=== PATIENT | female | born 1945 | race Caucasian/White ===

== ENCOUNTER 2017-01-16 09:49 | Observation (INO) | payer MEDICARE, MEDICAID ==
[2017-01-16] MEDS ORDERED: Acetaminophen TAB* 325 MG PO PRN (10:04)
[2017-01-16] MEDS ORDERED: Prochlorperazine TAB* 10 MG PO PRN (10:04)
[2017-01-16] MEDS ORDERED: Ondansetron ODT TAB* 4 MG SL PRN (10:04)
[2017-01-16] MEDS ORDERED: NS 0.9% 1000 ML* 1,000 ML IV SCH (10:15)
[2017-01-16] MEDS: Ciprofloxacin 400MG IVPREMIX(* 400 MG/200 ML BAG IVPB SCH ×2 (12:03→22:51)
[2017-01-16] MEDS ORDERED: Iohexol 180 (CONTRAST) 10 ML SDV IV ONE (16:40)
[2017-01-16] MEDS ORDERED: cefTRIAXone(*) 2 GM ADDV.VIAL IVPB ONE (17:35)
[2017-01-16] MEDS ORDERED: diPHENhydraMINE IV* 50 MG/ML 1 ml VIAL (BENADRYL) IV PRN (17:39)
[2017-01-16] MEDS ORDERED: Acetaminophen TAB* 325 MG ONE (18:24)
[2017-01-16] MEDS: fentaNYL* 50 MCG/ML 2 ML VIAL (100 MCG VIAL) IV PRN ×2 (18:27→18:33)
[2017-01-16] MEDS ORDERED: fentaNYL* 50 MCG/ML 2 ML VIAL (100 MCG VIAL) ONE (18:27)
[2017-01-16] MEDS ORDERED: DiMENhydriNATE IV* 50 MG/ML VIAL ONE (18:31)
--- NOTE | 2017-01-16 18:32 | RAD ---
INDICATION: Bilateral stent placement. COMPARISON: Comparison is made with a prior CT of the abdomen and pelvis from January 14, 2017. TECHNIQUE: 23 seconds of intermittent fluoroscopic guidance were provided and 10 spot films of the abdomen obtained. FINDINGS: There is opacification of both proximal collecting systems which appear dilated consistent with bilateral hydronephrosis. Subsequently there is placement of bilateral double-J stent catheters which demonstrate normal course. IMPRESSION: INTRAOPERATIVE CONTROL FILMS. CPT II Codes: 6045F
[2017-01-16] MEDS ORDERED: DiMENhydriNATE IV* 50 MG/ML VIAL IV PUSH PRN (18:33)
[2017-01-16] MEDS: NS 0.9% 1000 ML* 1,000 ML IV SCH (19:50)
[2017-01-16] MEDS: OLANzapine TAB* 10 MG PO SCH (20:46)
[2017-01-16] MEDS ORDERED: oxyCODONE/Acetamin 5/325 MG* TAB PO PRN ×2 (23:26→23:27)
[2017-01-17] MEDS: NS 0.9% 1000 ML* 1,000 ML IV SCH ×2 (01:16→07:55)
[2017-01-17] MEDS ORDERED: Levothyroxine TAB* 125 MCG TAB PO SCH (06:00)
[2017-01-17] MEDS ORDERED: Omeprazole CAP* 20 MG PO SCH (07:30)
[2017-01-17 07:32] VITALS: BP 121/62
[2017-01-17 08:41] LABS: Hematocrit 32 % (35-47); Hemoglobin 10.4 g/dl (12.0-16.0); Mean Corpuscular HGB Conc 33 g/dl (31-36); Mean Corpuscular Hemoglobin 29 pg (27-31); Mean Corpuscular Volume 87 fL (80-97); Mean Platelet Volume 7 um3 (7.4-10.4); Red Blood Count 3.62 10^6/ul (4.0-5.4); Red Cell Distribution Width 13 % (10.5-15); White Blood Count 13.6 10^3/ul (3.5-10.8)
[2017-01-17] MEDS: OLANzapine TAB* 10 MG PO SCH (08:52)
[2017-01-17 08:54] LABS: BUN/Creatinine Ratio 13.8 (8-20); Calcium 7.9 mg/dL (8.6-10.3); EGFR Non-African American 64.6 (>60); Globulin 3.1 g/dL (2-4); Potassium 3.5 mmol/L (3.5-5.0); Total Bilirubin 0.4 mg/dL (0.2-1.0); Total Protein 6.1 g/dL (6.4-8.9)
[2017-01-17] MEDS ORDERED: ARIPiprazole TAB* 15 MG PO SCH (09:00)
--- NOTE | 2017-01-17 09:08 | DS ---
- Discharge Summary ADMIT DATE: 01/16/2017 DISCHARGE DATE: 01/17/2017 DISCHARGE DIAGNOSIS: 1. pyelonephritis 2. bilateral hydronephrosis 3. ventral hernia DISCHARGE MEDICATIONS: Home Medications Medication Instructions Recorded Confirmed Type Meclizine TAB* [Antivert 12.5 TAB*] 12.5 mg PO ONCE PRN 07/28/13 01/16/17 History Ondansetron ODT TAB* [Zofran 4 MG 4 mg SL Q6H PRN 03/24/14 01/16/17 History Odt TAB*] OLANzapine TAB* [Zyprexa 10 MG 10 mg PO BID 11/27/16 01/16/17 History TAB*] Prochlorperazine TAB* [Compazine 10 mg PO Q6H PRN 11/27/16 01/16/17 History Tab*] ARIPiprazole TAB* [Abilify 15 MG 15 mg PO DAILY 01/13/17 01/16/17 History TAB*] Acetaminophen TAB* [Tylenol TAB*] 650 mg PO Q6H PRN 01/13/17 01/16/17 History Levothyroxine TAB* [Synthroid 125 125 mcg PO DAILY 01/13/17 01/16/17 History MCG TAB*] Omeprazole CAP* [Prilosec CAP* 20 20 mg PO DAILY 01/13/17 01/16/17 History MG] Ciprofloxacin HCl [Cipro 500 MG 500 mg PO BID #14 tab 01/17/17 Rx TAB] DISCHARGE FOLLOW UP: 1. Dr. Felton 1-[address] Castellon 01/23 HOSPITAL COURSE: brief obv discharge summary. Allegra was admitted and had ureteral stents placed. She was observed over night on IV cipro and feels quite good this morning. She is up eating breakfast and denies abdominal pain. She will be discharged on cipro x 7 days for complicated pyelonephritis related to a sen sensitive e. coli. She will follow up with Dr. Felton and see Dr. Castellon in consultation for repair of this large hernia. She has no active evidence of cancer on her surveillance scans. >30 mins spent, >50% in face to face consultation
[2017-01-17] MEDS: Ciprofloxacin 400MG IVPREMIX(* 400 MG/200 ML BAG IVPB SCH (10:17)
--- NOTE | 2017-01-19 04:46 | OP ---
CC: Dr. Vikram Dumont; Edna Bowen NP; Dr. Dale * DATE OF OPERATION: 01/16/17 - ROOM #[id number] DATE OF : 49 SURGEON: Ramon Felton MD ANESTHESIOLOGIST: Eleazar Campo MD ANESTHESIA: Spinal. PRE-OP DIAGNOSES: 1. Bilateral hydronephrosis. 2. Rectal carcinoma. POST-OP DIAGNOSES: 1. Bilateral hydronephrosis. 2. Rectal carcinoma. OPERATIVE PROCEDURE: Cystoscopy, bilateral retrograde pyelograms, bilateral ureteral dilatation, and bilateral ureteral stent insertion. INDICATIONS: Kirstin Mcrae is a 71-year-old lady with rectal carcinoma. She was evaluated recently and was noted to have bilateral hydronephrosis. The etiology is unclear. COMPLICATIONS: None. POSTOPERATIVE CONDITION: Stable. STENT USED: 8.5-Cameroonian 28-cm silicone stents, right and left ureter. OPERATIVE FINDINGS: 1. Changes in bladder consistent with cystitis. 2. Right hydronephrosis with dilated tortuosity, proximal right ureter. 3. Mild left hydronephrosis. DESCRIPTION OF PROCEDURE: After induction of spinal anesthesia, patient was placed in dorsal lithotomy position. Sequential compression devices were in place and functioning. Initial cystoscopy revealed few hyperemic areas scattered throughout the bladder consistent with cystitis. The right orifice was identified. Right retrograde pyelogram revealed moderate right hydronephrosis with a dilated tortuous right proximal ureter. There was a tapering of the ureteral dilatation in the pelvis about 6 to 7 cm above the bladder. I suspect this is extrinsic obstruction and could possibly be related to scarring as a result of radiation therapy. The ureter was carefully dilated initially with a 4-Cameroonian open-ended catheter, next with an 8-Cameroonian, and once this was done, an 8.5-Cameroonian 28-cm silicone stent was positioned with good proximal and distal positioning observed. Attention was directed to the left side. On the left side, obstruction was less severe and the hydronephrosis was mild with not as much dilatation of the ureter noted. Once again, the ureter was carefully dilated to 8-Cameroonian and then 8.5-Cameroonian 28-cm silicone stent was placed. A 16-Cameroonian Abbott was placed for temporary bladder drainage. The patient tolerated the procedure satisfactorily and was transferred back to the recovery area in stable condition. [id number]/[facility] #: [id number] [facility]
== END 2017-01-17 10:25 | disposition home or self-care (01) ==
LOC: INTOOBSV 10:39 → SSU 10:39
PROVIDERS: ADMIT Internal Medicine Hematology & Oncology; ATTEND Internal Medicine Hematology & Oncology
DX: N12 Tubulo-interstitial nephritis, not specified as acute or chronic (principal); N13.30 Unspecified hydronephrosis; E03.9 Hypothyroidism, unspecified; F20.9 Schizophrenia, unspecified; K43.9 Ventral hernia without obstruction or gangrene; Z85.048 Personal history of other malignant neoplasm of rectum, rectosigmoid junction, and anus
CPT/HCPCS: A9270-GY; C1876; G0378; G0463; G8427; J0330; J0696; J0744; J1240; J1580; J2250; J2400; J2405; J3010; Q0164; Q9967

== ENCOUNTER → 2017-04-01 07:16 | Day surgery (SDC) | payer MEDICARE, MEDICAID ==
--- NOTE | 2017-03-30 21:39 | HP ---
CC: Dr. Dale; Dr. Dumont * ADMITTING HISTORY AND PHYSICAL: DATE OF ADMISSION: 04/01/17 ADMITTING DIAGNOSES: 1. History of rectal carcinoma. 2. Bilateral hydronephrosis. PLANNED PROCEDURE: Bilateral retrograde, bilateral stent insertion. SURGEON: Dr. Felton. HISTORY OF PRESENT ILLNESS: Kirstin Mcrae is a 71-year-old lady with a history of rectal carcinoma. She had been seen a few months ago for bilateral hydronephrosis. On 01/16/17, she underwent bilateral stent insertion with subsequent resolution of the hydronephrosis. I then waited to see whether after couple of months she would be able to tolerate removal of the stent and initially one stent and then the second stent was removed over the course of the last two weeks. A followup ultrasound was then obtained, which however, revealed recurrence of the hydronephrosis after stent removal. PAST MEDICAL HISTORY: Significant for: 1. Rectal carcinoma. 2. Hypothyroidism. 3. 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 4. History of schizophrenia and depression. MEDICATIONS ON ADMISSION: 1. Aripiprazole 15 mg daily. 2. Compazine 10 mg 4 times a day p.r.n. 3. Levothyroxine 112 mcg daily. 4. Olanzapine 10 mg b.i.d. 5. Prilosec 20 mg daily. 6. Zofran p.r.n. ALLERGIES: No known drug allergies. PHYSICAL EXAMINATION GENERAL: Reveals a pleasant elderly lady. VITAL SIGNS: Blood pressure is 112/70, pulse 99 per minute, temperature 97.1. LUNGS: Clear bilaterally. CARDIOVASCULAR: Regular rate and rhythm; S1, S2. ABDOMEN: Soft with mild bilateral flank tenderness. IMPRESSION: A 71-year-old lady with history of rectal carcinoma, who has recurrence of bilateral hydronephrosis after removal of bilateral stents. PLAN: Cystoscopy, bilateral retrograde and bilateral stent insertion. [id number]/[facility] #: [id number] MTDD
[~2017-04-01 07:16] MED LIST: Buffered Lidocaine 0.9% SYRIN* 5 ML/SYR SYRINGE INTRADERM ONE; Buffered Lidocaine 0.9% SYRIN* 5 ML/SYR SYRINGE ONE; HYDROcodone/ACETAMIN 5-325 MG* 1 TAB PO PRN; Iohexol 180 (CONTRAST) 10 ML SDV IV ONE; Midazolam* 1 MG/ML 2 ML VIAL (2 MG) ONE; Ondansetron INJ* 2 MG/ML VIAL IV PRN; Propofol* 10 MG/ML 20 ML BTL IV PUSH ONE; cefTRIAXone(*) 2 GM ADDV.VIAL IVPB ONE; fentaNYL* 50 MCG/ML 2 ML VIAL (100 MCG VIAL) IV PRN; fentaNYL* 50 MCG/ML 2 ML VIAL (100 MCG VIAL) ONE; oxyCODONE TAB* 5 MG TAB PO PRN
--- NOTE | 2017-04-01 10:14 | RAD ---
Indication: Hydronephrosis. Fluoroscopic services provided for referring physician. 12 seconds of fluoroscopy time was used. There are 6 spot images which demonstrates bilateral hydronephrosis. There is placement of bilateral ureteral stents. IMPRESSION: Bilateral ureteral stents are noted. CPT II Codes: 6045F
[2017-04-01 11:02] VITALS: BP 107/61
--- NOTE | 2017-04-02 01:42 | OP ---
CC: Dr. Reji Dael; Dr. Vikram Dumont * DATE OF OPERATION: 04/01/17 - [facility] DATE OF : 49 SURGEON: Ramon Felton MD ANESTHESIOLOGIST: Dr. Avalos. ANESTHESIA: General. PRE-OP DIAGNOSIS: Bilateral hydronephrosis. POST-OP DIAGNOSIS: Bilateral hydronephrosis. OPERATIVE PROCEDURE: Cystoscopy, bilateral retrograde pyelogram, bilateral ureteral balloon dilatation, and bilateral stent insertion. COMPLICATIONS: None. STENT USED: An 8.5-Malagasy 26 cm silicone stent, right and left ureter. POSTOPERATIVE CONDITION: Stable. INDICATION: Kirstin Mcrae is a 71-year-old lady with rectal carcinoma. She had previously undergone bilateral stent insertion with resolution of the hydronephrosis. However, she developed recurrent hydronephrosis after the stents were removed and is now being brought in for bilateral stent insertion. DESCRIPTION OF PROCEDURE: After induction of general anesthesia, the patient was placed in dorsal lithotomy position. Sequential compression devices were in place and functioning. Initial cystoscopy revealed a normal-appearing bladder. Guidewire was introduced into the right ureter. Retrograde pyelogram revealed right hydronephrosis and a dilated proximal right ureter with tapering noted at the level of the mid to distal right ureter. Balloon dilatation of the mid to distal right ureter was successfully carried out under fluoroscopy and an 8.5-Malagasy 26 cm silicone stent was introduced without difficulty. The left retrograde pyelogram and balloon dilatation was carried out on the left side also and an 8.5-Malagasy 26 cm silicone stent was successfully placed on the left side also. An 18-Malagasy Abbott was placed for temporary bladder drainage. The patient tolerated the procedure satisfactorily and was transferred back to the recovery area in stable condition. [id number]/[facility] #: [id number] MTDD
== END | disposition home or self-care (01) ==
LOC: OR 07:16
PROVIDERS: ATTEND Urology
DX: N13.1 Hydronephrosis with ureteral stricture, not elsewhere classified (principal); C20 Malignant neoplasm of rectum; E03.9 Hypothyroidism, unspecified; Z85.3 Personal history of malignant neoplasm of breast; F20.9 Schizophrenia, unspecified; F32.9 Major depressive disorder, single episode, unspecified
CPT/HCPCS: 74420; C1876; J0696; J2250; J2704; J3010

== ENCOUNTER 2017-07-31 06:56 | Day surgery (SDC) | payer MEDICARE, MEDICAID ==
--- NOTE | 2017-07-29 11:45 | HP ---
CC: Dr. Vikram Dumont; Dr. Reji Dale * ADMITTING HISTORY AND PHYSICAL: DATE OF ADMISSION: 07/31/17 ADMITTING DIAGNOSES: 1. Bilateral hydronephrosis. 2. Recurrent urinary tract infections. PLANNED PROCEDURE: Bilateral retrograde, bilateral ureteral balloon dilatation , and bilateral stent change. SURGEON: Dr. Felton. HISTORY OF PRESENT ILLNESS: Kirstni Mcrae is a 72-year-old lady with a history of rectal carcinoma. She had originally undergone bilateral stent insertion in December of 2016 with resolution of the hydronephrosis. She then underwent stent removal but had to have the stent replaced because of the recurrence of hydronephrosis in March of 2017. She had recently been treated for urinary tract infection on 07/10/17 and when seen in followup on 02/04 appeared to have another urinary tract infection and has been started on antibiotic prior to be brought in for stent change. Also, her recent ultrasound had revealed progression of the left-sided hydronephrosis in spite of having a stent in place. PAST MEDICAL HISTORY: Significant for: 1. Rectal carcinoma (no definite recurrence as far as I can tell based on my review of the records). 2. History of ductal carcinoma in situ of the breast, treated with surgery and radiation therapy. 3. Hypothyroidism. 4. History of depression. 5. History of schizophrenia. MEDICATIONS ON ADMISSION: 1. Levothyroxine 112 mcg daily. 2. Prilosec 20 mg daily. 3. Olanzapine 10 mg twice a day. 4. Aripiprazole 15 mg daily. 5. Compazine p.r.n. ALLERGIES: No known drug allergies. REVIEW OF SYSTEMS: She is otherwise in good health. There is no history of diabetes mellitus or any other major systemic illness. PHYSICAL EXAMINATION GENERAL: Reveals a pleasant elderly lady. VITAL SIGNS: Blood pressure is 104/62, pulse rate 103 per minute and regular, oxygen saturation 99% on room air, temperature 97. LUNGS: Clear bilaterally. There is mild bilateral costovertebral angle tenderness, more on the left. CARDIOVASCULAR: Regular rate and rhythm. S1 and S2. LABORATORY DATA: A repeat urine culture is pending at the time of this dictation. IMPRESSION AND PLAN: Meanwhile, she has been started on Cipro 500 mg twice a day based on the last urine culture and the plan is for bilateral retrograde, possible bilateral balloon dilatation, and bilateral stent change. [id number]/[facility] #: [id number] [facility]
[~2017-07-31 06:56] MED LIST changes: -Buffered Lidocaine 0.9% SYRIN* 5 ML/SYR SYRINGE ONE; -HYDROcodone/ACETAMIN 5-325 MG* 1 TAB PO PRN; -Iohexol 180 (CONTRAST) 10 ML SDV IV ONE; -Midazolam* 1 MG/ML 2 ML VIAL (2 MG) ONE; -Ondansetron INJ* 2 MG/ML VIAL IV PRN; -Propofol* 10 MG/ML 20 ML BTL IV PUSH ONE; -cefTRIAXone(*) 2 GM ADDV.VIAL IVPB ONE; -fentaNYL* 50 MCG/ML 2 ML VIAL (100 MCG VIAL) IV PRN; -fentaNYL* 50 MCG/ML 2 ML VIAL (100 MCG VIAL) ONE; -oxyCODONE TAB* 5 MG TAB PO PRN
[2017-07-31] MEDS ORDERED: Gentamicin ADULT (*) 180 MG in NS 0.9% 100 ML* 100 ML IVPB ONE (07:00)
[2017-07-31] MEDS ORDERED: Levofloxacin 500 MG IVPREMIX(* 500 MG/100 ML BAG IVPB ONE (07:09)
[2017-07-31] MEDS ORDERED: Buffered Lidocaine 0.9% SYRIN* 5 ML/SYR SYRINGE ONE (07:09)
[2017-07-31] MEDS ORDERED: Propofol* 10 MG/ML 20 ML BTL IV PUSH ONE (08:56)
[2017-07-31] MEDS ORDERED: Midazolam* 1 MG/ML 2 ML VIAL (2 MG) ONE (08:56)
[2017-07-31] MEDS ORDERED: fentaNYL* 50 MCG/ML 2 ML VIAL (100 MCG VIAL) ONE (08:56)
[2017-07-31] MEDS ORDERED: Iohexol 180 (CONTRAST) 10 ML SDV IV ONE ×2 (09:20→09:28)
[2017-07-31] MEDS ORDERED: Ondansetron INJ* 2 MG/ML VIAL IV PRN (09:28)
[2017-07-31] MEDS ORDERED: fentaNYL* 50 MCG/ML 2 ML VIAL (100 MCG VIAL) IV PRN (09:28)
[2017-07-31] MEDS ORDERED: HYDROcodone/ACETAMIN 5-325 MG* 1 TAB PO PRN (09:28)
[2017-07-31] MEDS ORDERED: Naloxone* 0.4 MG/ML 1 ML VIAL IV PRN (09:28)
[2017-07-31] MEDS ORDERED: oxyCODONE/Acetamin 5/325 MG* TAB PO PRN (09:28)
--- NOTE | 2017-07-31 10:50 | RAD ---
CPT II Codes: G9500 Indication: Bilateral ureteral stent exchange. Fluoroscopic services provided for referring physician. 23 seconds of fluoroscopy time was used. 9 spot images demonstrates exchange of bilateral ureteral stents. IMPRESSION: Fluoroscopic services provided for referring physician for ureteral stent exchange.
--- NOTE | 2017-07-31 11:15 | OP ---
CC: Dr. Reji Dale; [facility] * DATE OF OPERATION: 07/31/17 - [facility] DATE OF : 49 SURGEON: Ramon Felton MD ANESTHESIOLOGIST: Dr. Avalos. ANESTHESIA: General. PRE-OP DIAGNOSIS: Bilateral hydronephrosis. POST-OP DIAGNOSIS: Bilateral hydronephrosis. OPERATIVE PROCEDURE: Cystoscopy, bilateral stent removal, bilateral retrograde pyelogram, bilateral ureteral balloon dilatation, and bilateral stent insertion. COMPLICATIONS: None. POSTOPERATIVE CONDITION: Stable. STENT USED: An 8.5-Tajik 22 cm silicone stent, right ureter and 8.5-Tajik 26 cm silicone stent, left ureter. INDICATIONS: Kirstin Mcrae is a 72-year-old lady with history of rectal carcinoma. She was noted to have bilateral hydronephrosis, which resolved with initial stent insertion, but then recurred after stent removal. She has also recently had recurrent urinary tract infections. DESCRIPTION OF PROCEDURE: After induction of general anesthesia, patient was placed in dorsal lithotomy position. Sequential compression devices were in place and functioning. Initial cystoscopy revealed a normal-appearing bladder, both of the previously placed stents were removed. Attention was directed to the right side. Retrograde pyelogram revealed a right kidney that was significantly lower in location, but normal with mild fullness of the collecting system. Balloon dilatation of the distal right ureter was carried out successfully under fluoroscopic monitoring and a new 8.5- Tajik 22 cm silicone stent was placed. Next, attention was directed to the left side. Once again, retrograde pyelogram was performed. There was more fullness of the left collecting system and once again balloon dilatation of the left distal ureter was successfully carried out with restriction noted at the junction of the mid to distal left ureter. A new 8.5-Tajik 26 cm silicone stent was placed on the left side. A Abbott catheter was placed for temporary bladder drainage. The patient tolerated the procedure satisfactorily and was transferred back to the recovery area in stable condition. [id number]/[facility] #: [id number] MTDD
[2017-07-31] MEDS ORDERED: Ondansetron INJ* 2 MG/ML VIAL ONE (11:33)
[2017-07-31 11:56] VITALS: BP 135/61
== END 2017-07-31 12:08 | disposition home or self-care (01) ==
LOC: OR 06:56
PROVIDERS: ATTEND Urology
DX: N13.1 Hydronephrosis with ureteral stricture, not elsewhere classified (principal); C20 Malignant neoplasm of rectum; Z87.440 Personal history of urinary (tract) infections; Z85.3 Personal history of malignant neoplasm of breast; E03.9 Hypothyroidism, unspecified; F32.9 Major depressive disorder, single episode, unspecified
CPT/HCPCS: 74420; C1876; C2617; J1580; J1956; J2250; J2405; J2704; J3010

== ENCOUNTER 2017-09-16 08:47 | Day surgery (SDC) | payer MEDICARE, MEDICAID ==
[2017-09-16] MEDS ORDERED: cefTRIAXone(*) 2 GM ADDV.VIAL IVPB ONE (08:49)
[2017-09-16] MEDS ORDERED: Propofol* 10 MG/ML 20 ML BTL IV PUSH ONE (11:33)
[2017-09-16] MEDS ORDERED: fentaNYL* 50 MCG/ML 2 ML VIAL (100 MCG VIAL) ONE (11:33)
[2017-09-16] MEDS ORDERED: DiMENhydriNATE IV* 50 MG/ML VIAL IV PUSH PRN (11:51)
[2017-09-16] MEDS ORDERED: Naloxone* 0.4 MG/ML 1 ML VIAL IV PRN (11:51)
[2017-09-16] MEDS ORDERED: fentaNYL* 50 MCG/ML 2 ML VIAL (100 MCG VIAL) IV PRN (11:51)
[2017-09-16] MEDS ORDERED: Ondansetron INJ* 2 MG/ML VIAL IV PRN (11:51)
[2017-09-16] MEDS ORDERED: Acetaminophen TAB* 325 MG PO PRN (11:51)
[2017-09-16] MEDS ORDERED: Iohexol 180 (CONTRAST) 10 ML SDV IV ONE (11:53)
--- NOTE | 2017-09-16 13:05 | RAD ---
INDICATION: Left ureteral balloon dilatation and stent replacement. COMPARISON: Comparison is made with prior renal ultrasound from September 02, 2017. TECHNIQUE: 12 seconds of intermittent fluoroscopic guidance were provided and 9 spot films of the abdomen were centered on the left side. FINDINGS: There is partial opacification of the left renal collecting system. There is balloon dilatation of the left ureter at several levels over a guidewire. Subsequently there is placement of a double-J stent catheter on the left side which demonstrates normal course. IMPRESSION: INTRAOPERATIVE CONTROL FILMS. CPT II Codes: G9500
[2017-09-16 13:33] VITALS: BP 147/78
--- NOTE | 2017-09-17 18:11 | OP ---
CC: Dr. Reji Dale; Dr. Arely Schofield; Dr. Ramon Felton OPERATIVE REPORT: DATE OF OPERATION: 09/16/17 DATE OF : 49 SURGEON: Ramon Felton MD ANESTHESIOLOGIST: Dr. Elias. ANESTHESIA: General. PRE-OP DIAGNOSIS: Left hydronephrosis. POST-OP DIAGNOSIS: Left hydronephrosis. OPERATIVE PROCEDURE: Cystoscopy, left stent removal, left retrograde pyelogram, left ureteral balloo n dilatation, and left stent insertion. COMPLICATIONS: None. STENT USED: 8.5-English 26-cm silicone stent, left ureter. INDICATIONS: Kirstin Mcrae is a 72-year-old lady with a history of rectal carcinoma. She had bee n evaluated for bilateral hydronephrosis and had undergone successful bilateral stent insertion. How ever, a followup ultrasound revealed persistent left hydronephrosis and she is now being brought in f or a repeat balloon dilatation and stent change. OPERATIVE FINDINGS: Left hydronephrosis likely secondary to stricture left mid to distal ureter. POSTOPERATIVE CONDITION: Stable. DESCRIPTION OF PROCEDURE: After induction of general anesthesia, the patient was placed in dorsal li thotomy position. Sequential compression devices were in place and functioning. Initial cystoscopy revealed both stents to be appropriately in the bladder with the distal coils noted in the bladder. The left stent was removed. Retrograde pyelogram revealed mild fullness of the left collecting syste m. I did not visualize any filling defects. There was a subtle area of narrowing at the junction of the mid to distal left ureter, which may represent stricture. Next, under fluoroscopic monitoring, balloon dilatation of the entire proximal mid and distal left ur eter was successfully carried out. Once this was completed, a new 8.5-English 26 cm silicone stent wa s introduced and positioned under fluoroscopy with good proximal and distal positioning obtained. Th e bladder was emptied. The patient tolerated the procedure satisfactorily and was transferred back t recovery area in stable condition. [id number]/[facility] #: [id number]
== END 2017-09-16 14:10 | disposition home or self-care (01) ==
LOC: OR 08:47
PROVIDERS: ATTEND Urology
DX: N13.1 Hydronephrosis with ureteral stricture, not elsewhere classified (principal); C20 Malignant neoplasm of rectum; Z85.3 Personal history of malignant neoplasm of breast; E03.9 Hypothyroidism, unspecified; F32.89 Other specified depressive episodes
CPT/HCPCS: 74420; C1876; J0696; J2704; J3010

== ENCOUNTER 2017-12-11 06:10 | Day surgery (SDC) | payer MEDICARE, MEDICAID ==
--- NOTE | 2017-12-07 20:03 | HP ---
CC: Dr. Dumont; Dr. Reji Dale * ADMITTING HISTORY AND PHYSICAL: DATE OF ADMISSION: 12/11/17 ADMITTING DIAGNOSES: 1. Bilateral hydronephrosis. 2. Urinary tract infection. PLANNED PROCEDURE: Cystoscopy, bilateral retrograde, bilateral stent change. SURGEON: Dr. Felton. HISTORY OF PRESENT ILLNESS: Kirstin Mcrae is a 72-year-old lady with a history of rectal carcinoma and bilateral hydronephrosis. She had undergone bilateral stent insertion with an 8.5-Sri Lankan 22-cm silicone stent in the right ureter and a 26-cm silicone stent in the left ureter. She has recently had recurrent or persistent urinary tract infections and is now being brought in for bilateral stent change while on oral antibiotics. PAST MEDICAL HISTORY: Significant for: 1. Rectal carcinoma. 2. Hypothyroidism. 3. Schizophrenia. 4. History of depression. 5. History of ductal carcinoma in situ of the breast. MEDICATIONS: On admission: 1. Prilosec 20 mg a day. 2. Aripiprazole 15 mg daily. 3. Olanzapine 10 mg twice a day. 4. Prilosec 20 mg daily. 5. Zofran 3 times a day p.r.n. ALLERGIES: No known drug allergies. REVIEW OF SYSTEMS: She is otherwise in good health. There is no history of any cardiovascular conditions or diabetes mellitus. PHYSICAL EXAMINATION GENERAL: Reveals a pleasant elderly lady. VITAL SIGNS: Blood pressure is 108/70, temperature 97.6, heart rate 93 per minute, oxygen saturation 99% on room air. LUNGS: Clear bilaterally. CARDIOVASCULAR: Regular rate and rhythm. S1, S2. ABDOMEN: Soft with mild bilateral flank tenderness. LABORATORY DATA: Her most recent urine culture had grown E. coli as well as enterococcus. IMPRESSION: A 72-year-old lady with bilateral ureteral stents and urinary tract infection, who is currently on antibiotics, and is being brought in for bilateral stent change while on antibiotics. [id number]/[facility] #: [id number] MTDD
[~2017-12-11 06:10] MED LIST changes: +Dexamethasone IV* 4 MG/ML 1 ML (4 MG) IV SLOW PU ONE; +Famotidine IV* 10 MG/ML 2 ML (20 mg) IV ONE
[2017-12-11] MEDS ORDERED: Famotidine IV* 10 MG/ML 2 ML (20 mg) ONE (06:12)
[2017-12-11] MEDS ORDERED: Dexamethasone IV* 4 MG/ML 1 ML (4 MG) ONE (06:12)
[2017-12-11] MEDS ORDERED: cefTRIAXone(*) 2 GM ADDV.VIAL IVPB ONE (06:25)
[2017-12-11] MEDS ORDERED: Gentamicin ADULT (*) 120 MG in NS 0.9% 100 ML* 100 ML IVPB ONE (07:00)
[2017-12-11] MEDS ORDERED: fentaNYL* 50 MCG/ML 2 ML VIAL (100 MCG VIAL) ONE (07:03)
[2017-12-11] MEDS ORDERED: Midazolam* 1 MG/ML 2 ML VIAL (2 MG) ONE (07:04)
[2017-12-11] MEDS ORDERED: DiMENhydriNATE IV* 50 MG/ML VIAL IV PUSH PRN (07:15)
[2017-12-11] MEDS ORDERED: HYDROcodone/ACETAMIN 5-325 MG* 1 TAB PO PRN (07:15)
[2017-12-11] MEDS ORDERED: Naloxone* 0.4 MG/ML 1 ML VIAL IV PRN (07:15)
[2017-12-11] MEDS ORDERED: oxyCODONE/Acetamin 5/325 MG* TAB PO PRN (07:15)
[2017-12-11] MEDS ORDERED: Acetaminophen TAB* 325 MG PO PRN (07:15)
[2017-12-11] MEDS ORDERED: oxyCODONE TAB* 5 MG TAB PO PRN (07:15)
[2017-12-11] MEDS ORDERED: Iohexol 180 (CONTRAST) 10 ML SDV IV ONE (07:21)
[2017-12-11] MEDS ORDERED: Propofol* 10 MG/ML 20 ML BTL IV PUSH ONE (07:33)
[2017-12-11] MEDS ORDERED: Lidocaine 2% PF * 5 ML VIAL ONE (07:34)
[2017-12-11] MEDS ORDERED: EPHEDrine (Pressors)* 50 MG/ML VIAL ONE (07:45)
[2017-12-11] MEDS ORDERED: Ondansetron INJ* 2 MG/ML VIAL ONE (07:54)
[2017-12-11] MEDS ORDERED: Furosemide IV* 10 MG/ML 2 ML VIAL (20 MG) ONE (08:15)
--- NOTE | 2017-12-11 08:42 | RAD ---
INDICATION: Bilateral stent exchange COMPARISON: None FINDINGS: 17 seconds of fluoroscopy were provided for the urology department. Fluoroscopic spot imaging of the abdomen were obtained for operative control. CPT II Codes: G9500 (fluoro time doc)
[2017-12-11 10:12] VITALS: BP 101/56
--- NOTE | 2017-12-11 11:53 | OP ---
CC: Dr. Dale; Dr. Schofield * DATE OF OPERATION: 12/11/17 - [facility] DATE OF : 49 SURGEON: Dr. Felton. ANESTHESIOLOGIST: Dr. Frances. ANESTHESIA: General. PRE-OP DIAGNOSIS: Bilateral hydronephrosis. POST-OP DIAGNOSIS: Bilateral hydronephrosis. OPERATIVE PROCEDURE: Cystoscopy, bilateral retrograde pyelograms, and bilateral ureteral stent change. COMPLICATIONS: None. STENT USED: 8.5-Greek 22-cm silicone stent, right ureter and 8.5-Greek 26-cm silicone stent, left ureter. INDICATION: Kirstin Mcrae is a 72-year-old lady who has had bilateral hydronephrosis. She has been managed with indwelling bilateral ureteral stents and is now being brought in for stent change. POSTOPERATIVE CONDITION: Stable. DESCRIPTION OF PROCEDURE: After induction of general anesthesia, the patient was placed in dorsal lithotomy position. Sequential compression devices were in place and functioning. Initial cystoscopy revealed mild chronic inflammatory changes and some telangiectasia in the floor of the bladder but an otherwise unremarkable appearing bladder. The stent was seen exiting from the right and left ureter and was removed intact without difficulty. Attention was directed to the right side. A retrograde pyelogram revealed fullness of the right collecting system and a new 8.5-Greek 22-cm silicone stent was introduced and positioned under fluoroscopy with good proximal and distal positioning obtained. Next, attention was directed to the left side. Similarly after doing an initial retrograde pyelogram, an 8.5-Greek 26-cm silicone stent was placed under fluoroscopic monitoring. The bladder was emptied. The patient tolerated the procedure satisfactorily and was transferred back to recovery area in stable condition. [id number]/[facility] #: [id number] [facility]
== END 2017-12-11 10:35 | disposition home or self-care (01) ==
LOC: OR 06:10
PROVIDERS: ATTEND Urology
DX: N13.1 Hydronephrosis with ureteral stricture, not elsewhere classified (principal); C20 Malignant neoplasm of rectum; E03.9 Hypothyroidism, unspecified; Z85.3 Personal history of malignant neoplasm of breast; F32.9 Major depressive disorder, single episode, unspecified; K21.9 Gastro-esophageal reflux disease without esophagitis
CPT/HCPCS: 74420; C1876; C2617; J0696; J1100; J1580; J1940; J2250; J2405; J2704; J3010

== ENCOUNTER → 2018-05-07 09:52 | Day surgery (SDC) | payer MEDICARE, MEDICAID ==
--- NOTE | 2018-05-05 18:57 | HP ---
CC: Dr. Vikram Dumont; Dr. Reji Dale * ADMITTING HISTORY AND PHYSICAL: DATE OF ADMISSION: 05/07/18 ADMITTING DIAGNOSIS: Bilateral hydronephrosis. PLANNED PROCEDURE: Cystoscopy, bilateral retrogrades, and bilateral ureteral stent insertion. SURGEON: Dr. Felton. HISTORY OF PRESENT ILLNESS: Kirstin Mcrae is a 73-year-old lady who had originally undergone bilateral stent insertion in December of 2016. She had last undergone stent change in November of 2017 and I decided to see if she would do okay without the stents and first the left and then the right stent were removed recently a week apart. An ultrasound revealed bilateral hydronephrosis and she is now being brought in for stent replacement. PAST MEDICAL HISTORY: Significant for: 1. History of rectal carcinoma. 2. Schizophrenia. 3. History of depression. 4. Hypothyroidism. 5. History of ductal carcinoma in situ of the breast. MEDICATIONS ON ADMISSION: 1. Aripiprazole 15 mg daily. 2. Olanzapine 10 mg b.i.d. 3. Prilosec 20 mg once a day. 4. Zofran 3 times a day p.r.n. ALLERGIES: No known drug allergies. REVIEW OF SYSTEMS: There is no history of diabetes mellitus or any other major systemic illness. PHYSICAL EXAMINATION GENERAL: Reveals a pleasant elderly lady. VITAL SIGNS: Blood pressure is 110/62, pulse 95 per minute and regular, oxygen saturation 91% on room air, temperature 97.1. LUNGS: Clear bilaterally. CARDIOVASCULAR: Regular rate and rhythm. S1, S2. ABDOMEN: Soft with mild bilateral flank tenderness. IMPRESSION: A 73-year-old lady with recurrence of bilateral hydronephrosis after stent removal. PLAN: Plan is bilateral retrogrades, bilateral stent insertion. [id number]/[facility] #: [id number] [facility] [place]
[~2018-05-07 09:52] MED LIST changes: -Buffered Lidocaine 0.9% SYRIN* 5 ML/SYR SYRINGE INTRADERM ONE; +Buffered Lidocaine 1% SYRIN* 1 ML/SYRINGE INTRADERM ONE; -Dexamethasone IV* 4 MG/ML 1 ML (4 MG) IV SLOW PU ONE; -Famotidine IV* 10 MG/ML 2 ML (20 mg) IV ONE; +Gentamicin ADULT (*) 140 MG in NS 0.9% 100 ML* 100 ML IVPB ONE; +Iohexol 180 (CONTRAST) 10 ML SDV IV ONE; +Lactated Ringers 1000 ML Bag* 1,000 ML IV SCH; +Lidocaine 2% PF * 5 ML VIAL ONE; +Naloxone* 0.4 MG/ML 1 ML VIAL IV PRN; +Propofol* 10 MG/ML 20 ML BTL ONE; +cefTRIAXone(*) 2 GM ADDV.VIAL IVPB ONE; +fentaNYL* 50 MCG/ML 2 ML VIAL (100 MCG VIAL) IV PRN; +fentaNYL* 50 MCG/ML 2 ML VIAL (100 MCG VIAL) ONE
[2018-05-07 15:38] VITALS: BP 138/94
--- NOTE | 2018-05-07 21:52 | OP ---
CC: Dr. Dale; Dr. Vikram Dumont * DATE OF OPERATION: 05/07/18 - [facility] DATE OF : 49 SURGEON: Ramon Felton MD ANESTHESIOLOGIST: Dr. Triana ANESTHESIA: General. PRE-OP DIAGNOSIS: Bilateral hydronephrosis. POST-OP DIAGNOSIS: Bilateral hydronephrosis. OPERATIVE PROCEDURE: 1. Cystoscopy. 2. Bilateral retrograde pyelograms. 3. Bilateral ureteral dilatation and bilateral stent insertion. INDICATIONS: Kirstin Mcrae is a 73-year-old lady with recurrent bilateral hydronephrosis who has been managed with indwelling stents. She recently underwent stent removal and was noted to have development of bilateral hydronephrosis and is now being brought in for stent placement. COMPLICATIONS: None. POSTOPERATIVE CONDITION: Stable. STENT USED: An 8.5-Urdu 22 cm silicone stent, right ureter and 8.5-Urdu 24 cm silicone stent left ureter. DESCRIPTION OF PROCEDURE: After induction of general anesthesia, the patient was placed in dorsal lithotripsy position. Sequential compression devices were in place and functioning. Initial evaluation revealed a normal-appearing bladder. Right retrograde pyelogram revealed fullness of the right collecting system. There was evidence of resistance to the advancement of the open-ended catheter at the junction of the [id number] right ureter. The ureter was carefully dilated initially to 4-Urdu and subsequently to 8-Urdu and then an 8.5 Urdu 22 cm silicon stent was placed on the right side. Next, attention was directed to the left side. Left retrograde pyelogram revealed more hydronephrosis compared to the right side and once again ureteral dilatation was carried out to 8-Urdu and an 8.5-Urdu 24 cm silicon stent was placed on the left side. Appropriate positioning was confirmed on fluoroscopy both proximally and distally and the bladder was emptied. The patient tolerated the procedure satisfactorily and was transferred back to the recovery area in stable condition. [id number]/[facility] #: [id number] [facility]
== END | disposition home or self-care (01) ==
LOC: OR 09:52
PROVIDERS: ATTEND Urology
DX: N13.1 Hydronephrosis with ureteral stricture, not elsewhere classified (principal); C20 Malignant neoplasm of rectum; Z85.3 Personal history of malignant neoplasm of breast; E03.9 Hypothyroidism, unspecified; F20.9 Schizophrenia, unspecified; F32.9 Major depressive disorder, single episode, unspecified
CPT/HCPCS: 74420; C2617; J0696; J1580; J2704; J3010

== ENCOUNTER 2018-08-11 06:16 | Emergency (ER) | payer MEDICARE, MEDICAID ==
--- NOTE | 2018-08-11 06:30 | ED ---
Complex/Multi-Sys Presentation - HPI Summary HPI Summary: Patient is a 73-year-old female presents emergency department for decreased sleep, nausea, vomiting and feeling of malaise. Past medical history of remote colon cancer, hypothyroidism. Patient currently has bilateral ureteral stent secondary to hydronephrosis. She follows with local urology. No history of urolithiasis. Patient states after chemotherapy and bowel resection she developed hydronephrosis she's had stents in for months. Patient states she did have a urinary tract infection last month and is currently on antibiotics. Patient denies fever, chills, chest pain, shortness of breath, abdominal pain or flank pain. Symptoms are moderate in severity. No current modifying factors. - History Of Current Complaint Chief Complaint: EDGeneral Time Seen by Provider: 08/11/18 06:29 Hx Obtained From: Patient - Allergies/Home Medications Allergies/Adverse Reactions: Allergies Allergy/AdvReac Type Severity Reaction Status Date / Time Seasonal/Environmental Allergy Runny Nose Uncoded 05/07/18 11:51 Allergies PMH/Surg Hx/FS Hx/Imm Hx Previously Healthy: Yes Endocrine/Hematology History: Reports: Hx Thyroid Disease - hypo, Hx Anemia - history of anemia after surgery 2016 Denies: Hx Diabetes, Hx Systemic Lupus Erythematosus, Hx Sickle Cell Disease Cardiovascular History: Denies: Hx Congestive Heart Failure, Hx Hypertension, Hx Pacemaker/ICD, Other Cardiovascular Problems/Disorders Respiratory History: Reports: Hx Seasonal Allergies Denies: Hx Asthma, Other Respiratory Problems/Disorders GI History: Reports: Hx Gastroesophageal Reflux Disease - ON MEDS, Hx Ileostomy Comment Only: Other GI Disorders - Colorectal cancer, Hx of COLOSTOMY- reversed 2016, Constipation History: Reports: Hx Kidney Infection - STATES RECENT ANTIBIOTIC , FINISHED 2 DAYS AGO, Other Problems/Disorders - alexander hydronephrosis Denies: Hx Dialysis, Hx Renal Disease Musculoskeletal History: Reports: Other Musculoskeletal History Denies: Hx Rheumatoid Arthritis Sensory History: Reports: Hx Cataracts - very mild, Hx Contacts or Glasses - Glasses, Hx Hearing Problem - no SANDHU Denies: Hx Hearing Aid Opthamlomology History: Reports: Hx Cataracts - very mild, Hx Contacts or Glasses - Glasses Neurological History: Denies: Other Neuro Impairments/Disorders Psychiatric History: Reports: Hx Anxiety, Hx Depression, Hx Inpatient Treatment - 1 MON[place] ST[place] [facility] [place] Hx Schizophrenia - SEES PSYCHIATRIST EVERY 3 MONTHS [facility] Denies: Hx Attention Deficit Hyperactivity Disorder, Hx Eating Disorder, Hx Panic Disorder, Hx Post Traumatic Stress Disorder, Hx Community Mental Health Tx , Hx Bipolar Disorder, Hx Suicide Attempt, Hx of Violent Episodes Against Others , Hx Substance Abuse, Other Psychiatric Issues/Disorders - Cancer History Cancer Type, 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 BREAST CA Hx Chemotherapy: Yes Hx Radiation Therapy: Yes - FOR BREAST AND RECTUM - Surgical History Surgery Procedure, Year, and Place: 2004 LUMPECTOMY RIGHT BREAST, [facility] [place] 2012 2 COLON RESECTIONS FOR RECTAL CANCER,[facility] [place]. 2012 ABDOMINAL SURGERY, [facility] [place] 12/2012 COLOSTOMY, [facility] [place]. 05/2014 COLOSTOMY REVERSAL. left leg skin cancer. (5 ABD SURGERIES TOTAL). Ureteral stents x3 pt believes Hx Anesthesia Reactions: No Infectious Disease History: No Infectious Disease History: Denies: Hx Clostridium Difficile, Hx Hepatitis, Hx Human Immunodeficiency Virus (HIV), Hx Shingles, Hx Tuberculosis, Traveled Outside the in Last 30 Days - Family History Known Family History: Positive: Non-Contributory - Social History Occupation: Employed Full-time Lives: Alone Alcohol Use: None Substance Use Type: Reports: None Smoking Status (MU): Never Smoked Tobacco Have You Smoked in the Last Year: No Review of Systems Constitutional: Negative Negative: Fever, Chills Eyes: Negative ENT: Negative Cardiovascular: Negative Negative: Palpitations, Chest Pain Respiratory: Negative Negative: Shortness Of Breath, Cough Positive: Vomiting, Nausea. Negative: Abdominal Pain, Diarrhea Positive: urgency Neurological: Negative Psychological: Normal All Other Systems Reviewed And Are Negative: Yes Physical Exam Triage Information Reviewed: Yes Vital Signs On Initial Exam: Initial Vitals Temp Pulse Resp BP Pulse Ox 98.6 F 88 18 124/77 96 08/11/18 06:18 08/11/18 06:18 08/11/18 06:18 08/11/18 06:18 08/11/18 06:18 Vital Signs Reviewed: Yes Appearance: Positive: Well-Appearing - Pt. sitting up in bed in NAD. Talkative. Skin: Positive: Warm, Dry Head/Face: Positive: Normal Head/Face Inspection Eyes: Positive: Normal, EOMI Neck: Positive: Supple Respiratory/Lung Sounds: Positive: Clear to Auscultation, Breath Sounds Present Cardiovascular: Positive: Normal, RRR Abdomen Description: Positive: Other: - Mild tenderness to suprapubic region. No rebound tenderness or guarding. No CVA Tenderness bilaterally.. Negative: CVA Tenderness (R), CVA Tenderness (L) Musculoskeletal: Positive: Normal, Strength/ROM Intact Neurological: Positive: Normal, CN Intact II-III Psychiatric: Positive: Affect/Mood Appropriate Diagnostics - Vital Signs Vital Signs Temp Pulse Resp BP Pulse Ox 08/11/18 06:18 98.6 F 88 18 124/77 96 - Laboratory Result Diagrams: 08/11/18 07:25 08/11/18 07:26 Lab Statement: Any lab studies that have been ordered have been reviewed, and results considered in the medical decision making process. Complex Multi-Symp Course/Dx Course Of Treatment: Pt. presenting for vague c/o decreased sleep, malaise, N/ V. She is afebrile and well appearing. Pt. given IV fluids and zofran. Labs are unremarkable. U/A is nitrate positive. On re-exam pt. feeling wel land is tolerating PO fluids. Will start on cipro for UTI. Pt. states she has an apt. with urology on Thursday, in 3 days. Pt. will return to ER if symptoms change or worsen. - Diagnoses Provider Diagnoses: UTI (urinary tract infection) Discharge - Sign-Out/Discharge Documenting (check all that apply): Patient Departure Patient Received Moderate/Deep Sedation with Procedure: No - Discharge Plan Condition: Improved Disposition: HOME Prescriptions: Ciprofloxacin TAB* [Cipro 500 MG TAB*] 500 mg PO BID #14 tab Ondansetron TAB* [Zofran 4 MG Tab*] 4 mg PO Q6H PRN #12 tab PRN Reason: Nausea Patient Education Materials: Urinary Tract Infection in Women (ED) Referrals: Reji Dale MD [Primary Care Provider] - Ramon Felton MD [Medical Doctor] - Additional Instructions: Follow up with Dr. Felton on Thursday as scheduled Take antibiotic as directed Increase fluids and rest Return to ER for uncontrollable vomiting, fever, or if concerned - Billing Disposition and Condition Condition: IMPROVED Disposition: Home
[2018-08-11] MEDS ORDERED: NS 0.9% 1000 ML** 1,000 ML IV ONE (07:05)
[2018-08-11] MEDS ORDERED: Ondansetron INJ* 2 MG/ML VIAL IV ONE (07:05)
[2018-08-11 07:33] LABS: ABS Basophils 0 10^3/ul (0-0.2); ABS Eosinophils 0 10^3/ul (0-0.6); ABS Lymphocytes 0.8 10^3/ul (1.0-4.8); ABS Monocytes 0.7 10^3/ul (0-0.8); ABS Neutrophils 6.1 10^3/ul (1.5-7.7); ABS Nucleated RBC 0 10^3/ul; Eosinophil % 0.6 %; Hematocrit 36 % (33-41); Hemoglobin 11.9 g/dL (12.0-16.0); Lymphocyte % 9.9 %; Mean Corpuscular HGB Conc 33 g/dL (31-36); Mean Corpuscular Hemoglobin 28 pg (27-31); Mean Corpuscular Volume 85 fL (80-97); Mean Platelet Volume 7.3 fL (7.4-10.4); Nucleated Red Blood Cells % 0; Platelet Count 212 10^3/uL (150-450); Red Blood Count 4.18 10^6 /uL (3.70-4.87); Red Cell Distribution Width 13 % (10.5-15); White Blood Count 7.6 10^3/uL (3.5-10.8)
[2018-08-11 07:53] LABS: Albumin 3.8 g/dL (3.2-5.2); Albumin/Globulin Ratio 1.2 (1-3); BUN/Creatinine Ratio 31.1 (8-20); Calcium 9.6 mg/dL (8.6-10.3); EGFR African American 93.6 (>60); EGFR Non-African American 77.4 (>60); Globulin 3.1 g/dL (2-4); Magnesium 1.8 mg/dL (1.9-2.7); Potassium 4.1 mmol/L (3.5-5.0); Total Bilirubin 0.3 mg/dL (0.2-1.0); Total Protein 6.9 g/dL (6.4-8.9)
[2018-08-11 07:55] LABS: Troponin I 0.01 ng/mL (<0.04)
[2018-08-11] MEDS ORDERED: Magnesium Oxide TAB* 400 MG PO ONE (08:18)
[2018-08-11 09:05] LABS: Urine Appearance Cloudy; Urine Bacteria 2+ (Absent); Urine Bilirubin Negative (Negative); Urine Blood 2+ (Negative); Urine Color Yellow; Urine Glucose Negative (Negative); Urine Ketones Negative (Negative); Urine Nitrite Positive (Negative); Urine Protein Negative (Negative); Urine Red Blood Cell 3+(>10/hpf) (Absent); Urine Specific Gravity 1.009 (1.010-1.030); Urine Squamous Epithelial Cell Present (Absent); Urine Urobilinogen Negative (Negative); Urine White Blood Cell 3+(>20/hpf) (Absent)
[2018-08-11] MEDS ORDERED: Ciprofloxacin TAB* 500 MG PO ONE (09:17)
[2018-08-11 10:12] VITALS: BP 126/81
--- NOTE | 2018-08-13 07:03 | PN ---
Progress Note - Progress Note Date of Service: 08/11/18 Note: Urine culture growing >100k e. coli and enterococcus. Pt. on Cipro. Will wait for final culture and sensitivity. No change in treatment at this time.
--- NOTE | 2018-08-14 05:52 | PN ---
Progress Note - Progress Note Date of Service: 08/11/18 Note: Patient was placed on ciprofloxacin prior to discharge Urine culture preliminary grew E coli in Enterococcus faecalis Ciprofloxacin is sensitive to these organisms Nothing further is required
== END 2018-08-11 10:12 | disposition home or self-care (01) ==
LOC: ED 06:16
DX: N39.0 Urinary tract infection, site not specified (principal); J44.9 Chronic obstructive pulmonary disease, unspecified; E03.9 Hypothyroidism, unspecified; D64.9 Anemia, unspecified; K21.9 Gastro-esophageal reflux disease without esophagitis; Z79.899 Other long term (current) drug therapy; Z93.2 Ileostomy status; Z85.3 Personal history of malignant neoplasm of breast; Z85.048 Personal history of other malignant neoplasm of rectum, rectosigmoid junction, and anus
CPT/HCPCS: 36415; 71045; 80053; 81003; 81015; 83735; 84484; 85025; 87077; 87086; 87186; 93005; 96361; 96374; 99282; A9270-GY; J2405

== ENCOUNTER → 2018-09-10 05:40 | Day surgery (SDC) | payer MEDICARE, MEDICAID ==
--- NOTE | 2018-09-03 10:38 | HP ---
CC: Dr. Dumont; Dr. Dale* ADMITTING HISTORY AND PHYSICAL: DATE OF ADMISSION: 09/10/18 ADMITTING DIAGNOSIS: Bilateral hydronephrosis. PLANNED PROCEDURE: Cystoscopy, bilateral retrograde, bilateral ureteral stent change, possible balloon dilatation. SURGEON: Dr. Felton. HISTORY OF PRESENT ILLNESS: Kirstin Mcrae is a 73-year-old lady who has had indwelling bilateral ureteral stents for almost 1-1/2 year now. I had attempted to try and leave her without stents for a short while but she developed recurrence of hydronephrosis requiring reinsertion of bilateral stents , which were last changed in April 2018. She has an 8.5 Albanian 22 cm silicone stent on the right side and an 8.5 Albanian 24 cm silicone stent on the left side. PAST MEDICAL HISTORY: Significant for: 1. History of rectal carcinoma. 2. Depression. 3. History of schizophrenia. 4. DCIS of the breast. 5. Hypothyroidism. MEDICATIONS ON ADMISSION: 1. Olanzapine 10 mg twice a day. 2. Aripiprazole 15 mg daily. 3. Zofran p.r.n. 4. Prilosec 20 mg once a day. 5. Amoxicillin 500 mg twice a day, which she is currently taking for urinary tract infection (my plan is to try and change the stents while she is on the antibiotics). ALLERGIES: No known drug allergies. FAMILY HISTORY: Noncontributory. SOCIAL HISTORY: Smoking history: Nonsmoker. REVIEW OF SYSTEMS: She is otherwise in good health. There is no history of diabetes mellitus or any cardiovascular illness. PHYSICAL EXAMINATION GENERAL: Reveals a pleasant elderly lady, who is alert and oriented. VITAL SIGNS: Blood pressure is 118/68, pulse 95 per minute regular, temperature 98, oxygen saturation 98% on room air. LUNGS: Clear bilaterally. CARDIOVASCULAR: Regular rate and rhythm. S1, S2. ABDOMEN: Soft with mild bilateral flank tenderness. IMPRESSION: A 73-year-old lady with bilateral hydronephrosis, likely related to strictures in the ureter, who is being brought in for bilateral retrograde, bilateral stent change and possible balloon dilatation. [id number]/[facility] #: [id number] [facility]
[~2018-09-10 05:40] MED LIST changes: +Dexamethasone TAB* 4 MG ONE; +Dexamethasone TAB* 4 MG PO ONE; +DiMENhydriNATE IV* 50 MG/ML VIAL IV PUSH PRN; +DiMENhydriNATE IV* 50 MG/ML VIAL ONE; +Famotidine IV* 10 MG/ML 2 ML (20 mg) IV ONE; +Famotidine IV* 10 MG/ML 2 ML (20 mg) ONE; -Gentamicin ADULT (*) 140 MG in NS 0.9% 100 ML* 100 ML IVPB ONE; +KETAMINE HCL* 50 MG/ML 10 ML VIAL ONE; +Midazolam* 1 MG/ML 2 ML VIAL (2 MG) ONE; +Morphine 4 MG/ML VIAL (1 ml) 4 MG/ML VIAL IV PRN; +Ondansetron ODT TAB* 4 MG ONE; +Ondansetron TAB* 4 MG PO ONE; +PROCHLORPERAZINE INJ 5 MG/ML 2 ML VIAL IV PRN; +PROCHLORPERAZINE INJ 5 MG/ML 2 ML VIAL ONE; +oxyCODONE/Acetamin 5/325 MG* TAB PO PRN
--- NOTE | 2018-09-10 09:52 | OP ---
CC: Dr. Dumont; Dr. Reji Dale * DATE OF OPERATION: 09/10/18 - [facility] DATE OF : 49 SURGEON: Dr. Felton. ANESTHESIOLOGIST: Dr. Archer. ANESTHESIA: General. PRE-OP DIAGNOSIS: Bilateral hydronephrosis. POST-OP DIAGNOSES: Bilateral hydronephrosis. SURGICAL PROCEDURES: 1. Cystoscopy. 2. Bilateral retrograde pyelograms. 3. Bilateral ureteral balloon dilatation and bilateral ureteral stent exchange. COMPLICATIONS: None. STENTS USED: 8.5-Cymraes 22 cm silicone stent, right ureter and 8.5-Cymraes 24 cm silicone stent, left ureter. POSTOPERATIVE CONDITION: Stable. INDICATIONS: Kirstin Mcrae is a 73-year-old lady with a longstanding history of bilateral hydronephrosis secondary to ureteral strictures. DESCRIPTION OF PROCEDURE: After induction of general anesthesia, the patient was placed on the operating table in dorsal lithotomy position. Sequential compression devices were in place and functioning. Initial cystoscopy revealed appropriately positioned stents within the urinary bladder and both of the stents were removed. Next, attention was directed to the left side. Retrograde pyelogram revealed fullness of the left collecting system with narrowing of the ureter at the junction of the mid to distal left ureter. Balloon dilatation was carried out under fluoroscopic monitoring and a new 8.5-Cymraes 24 cm black silicone stent was placed within the left ureter with good proximal and distal positioning noted. Next, an identical procedure was carried out on the right side. Once again, successful balloon dilatation was carried out and an 8.5-Cymraes 22 cm black silicone stent was placed on the right side. The bladder was emptied. The patient tolerated the procedure satisfactorily and was transferred back to the recovery area in stable condition. [id number]/[facility] #: [id number] [facility]
[2018-09-10 10:46] VITALS: BP 145/93
== END | disposition home or self-care (01) ==
LOC: OR 05:40
PROVIDERS: ATTEND Urology
DX: N13.1 Hydronephrosis with ureteral stricture, not elsewhere classified (principal); C20 Malignant neoplasm of rectum; N39.0 Urinary tract infection, site not specified; E03.9 Hypothyroidism, unspecified; F20.9 Schizophrenia, unspecified
CPT/HCPCS: 74420; A9270-GY; C1876; C2617; J0696; J0780; J1240; J2250; J2704; J3010; J8540

== ENCOUNTER → 2018-10-15 09:24 | Emergency (ER) | payer MEDICARE, MEDICAID ==
[~2018-10-15 09:24] MED LIST changes: -Buffered Lidocaine 1% SYRIN* 1 ML/SYRINGE INTRADERM ONE; -Dexamethasone TAB* 4 MG ONE; -Dexamethasone TAB* 4 MG PO ONE; -DiMENhydriNATE IV* 50 MG/ML VIAL IV PUSH PRN; -DiMENhydriNATE IV* 50 MG/ML VIAL ONE; -Famotidine IV* 10 MG/ML 2 ML (20 mg) IV ONE; -Famotidine IV* 10 MG/ML 2 ML (20 mg) ONE; -Iohexol 180 (CONTRAST) 10 ML SDV IV ONE; -KETAMINE HCL* 50 MG/ML 10 ML VIAL ONE; -Lactated Ringers 1000 ML Bag* 1,000 ML IV SCH; -Lidocaine 2% PF * 5 ML VIAL ONE; -Midazolam* 1 MG/ML 2 ML VIAL (2 MG) ONE; -Morphine 4 MG/ML VIAL (1 ml) 4 MG/ML VIAL IV PRN; +NS 0.9% 1000 ML** 2,000 ML IV ONE; -Naloxone* 0.4 MG/ML 1 ML VIAL IV PRN; -Ondansetron ODT TAB* 4 MG ONE; -Ondansetron TAB* 4 MG PO ONE; -PROCHLORPERAZINE INJ 5 MG/ML 2 ML VIAL IV PRN; -PROCHLORPERAZINE INJ 5 MG/ML 2 ML VIAL ONE; -Propofol* 10 MG/ML 20 ML BTL ONE; +Sulfamethox/Trimethoprim DS 800/160* TAB PO ONE; -cefTRIAXone(*) 2 GM ADDV.VIAL IVPB ONE; -fentaNYL* 50 MCG/ML 2 ML VIAL (100 MCG VIAL) IV PRN; -fentaNYL* 50 MCG/ML 2 ML VIAL (100 MCG VIAL) ONE; -oxyCODONE/Acetamin 5/325 MG* TAB PO PRN
--- NOTE | 2018-10-15 09:38 | ED ---
Abdominal Pain/Female - HPI Summary HPI Summary: A 73 y/o female presents to [facility] with a chief complaint of constant abdominal pain for 2 weeks. She claims that she has bilateral kidney stents that were placed one month ago by Dr. Felton. At triage she rated her pain as a 3/10 in severity. She reports nausea without vomiting. She denies hematuria or dysuria. She also says that she has a hernia. She took Miralax and had a BM this morning. She says that she had a blood test done last week that showed some renal failure and that Dr. Dale and Dr. Felton referred her to the ED to get admitted. - History of Current Complaint Chief Complaint: EDAbdPain Stated Complaint: STOMACH ACHE/STENTS IN KIDNEYS PER PT Time Seen by Provider: 10/15/18 09:31 Hx Obtained From: Patient Onset/Duration: Sudden Onset, Lasting Weeks, Still Present Timing: Constant Severity Initially: Mild Severity Currently: Mild Pain Intensity: 3 Pain Scale Used: 0-10 Numeric Location: Diffuse Radiates: No Character: Other: - unable to describe Aggravating Factor(s): Nothing Alleviating Factor(s): Nothing Associated Signs and Symptoms: Positive: Nausea. Negative: Fever, Urinary Symptoms, Vomiting Allergies/Adverse Reactions: Allergies Allergy/AdvReac Type Severity Reaction Status Date / Time Seasonal/Environmental Allergy Runny Nose Uncoded 10/15/18 09:28 Allergies Home Medications: Home Medications Ondansetron HCl [Zofran] 8 mg PO Q8H PRN 10/15/18 [History Confirmed 10/15/18] Polyethylene Glycol 3350 [Miralax] 1 dose PO DAILY PRN 10/15/18 [History Confirmed 10/15/18] PMH/Surg Hx/FS Hx/Imm Hx Endocrine/Hematology History: Reports: Hx Thyroid Disease - hypo, Hx Anemia - history of anemia after surgery 2016 Denies: Hx Diabetes, Hx Systemic Lupus Erythematosus, Hx Sickle Cell Disease Cardiovascular History: Denies: Hx Congestive Heart Failure, Hx Hypertension, Hx Pacemaker/ICD, Other Cardiovascular Problems/Disorders Respiratory History: Reports: Hx Seasonal Allergies Denies: Hx Asthma, Other Respiratory Problems/Disorders GI History: Reports: Hx Gastroesophageal Reflux Disease - ON MEDICATION FOR, Hx Ileostomy Comment Only: Other GI Disorders - Colorectal cancer, Hx of COLOSTOMY- reversed 2016, Constipation History: Reports: Hx Kidney Infection - HX OF, Hx Renal Disease - BILAT STENTS., Other Problems/Disorders - alexander hydronephrosis Denies: Hx Dialysis Musculoskeletal History: Reports: Other Musculoskeletal History Denies: Hx Rheumatoid Arthritis Sensory History: Reports: Hx Cataracts - very mild, Hx Contacts or Glasses - Glasses, Hx Hearing Problem - no SANDHU Denies: Hx Hearing Aid Opthamlomology History: Reports: Hx Cataracts - very mild, Hx Contacts or Glasses - Glasses Neurological History: Denies: Other Neuro Impairments/Disorders Psychiatric History: Reports: Hx Anxiety - ON MEDICATION FOR, Hx Depression - ON MEDICATION FOR, Hx Inpatient Treatment - [place] [facility] [place] Hx Schizophrenia - SEES PSYCHIATRIST EVERY 3 MONTHS [facility] Denies: Hx Attention Deficit Hyperactivity Disorder, Hx Eating Disorder, Hx Panic Disorder, Hx Post Traumatic Stress Disorder, Hx Community Mental Health Tx , Hx Bipolar Disorder, Hx Suicide Attempt, Hx of Violent Episodes Against Others , Hx Substance Abuse, Other Psychiatric Issues/Disorders - Cancer History Cancer Type, 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 BASAL CELL CA Hx Chemotherapy: Yes Hx Radiation Therapy: Yes - FOR BREAST AND RECTUM - Surgical History Surgery Procedure, Year, and Place: 2004 [place] [facility] [place] 2 [place] [place] [facility] [place] [facility] [place] COLOSTOMY REVERSAL. left leg skin cancer. (5 ABD SURGERIES TOTAL). Ureteral stents x3 pt believes. Basal cell CA removed from forehead and breast Hx Anesthesia Reactions: No Infectious Disease History: No Infectious Disease History: Denies: Hx Clostridium Difficile, Hx Hepatitis, Hx Human Immunodeficiency Virus (HIV), Hx Shingles, Hx Tuberculosis, Traveled Outside the [place] in Last 30 Days - Family History Known Family History: Positive: Non-Contributory - Social History Alcohol Use: None Substance Use Type: Reports: None Hx Tobacco Use: No Smoking Status (MU): Never Smoked Tobacco Have You Smoked in the Last Year: No Review of Systems Negative: Fever Positive: Abdominal Pain, Nausea. Negative: Vomiting Negative: dysuria, hematuria All Other Systems Reviewed And Are Negative: Yes Physical Exam - Summary Physical Exam Summary: Appearance: Well appearing, no pain distress Skin: warm, dry, reflects adequate perfusion Head/face: normal Eyes: EOMI, KALYAN ENT: normal Neck: supple, non-tender Respiratory: CTA, breath sounds present Cardiovascular: RRR, pulses symmetrical Abdomen: non-tender, soft, distension Musculoskeletal: normal, strength/ROM intact Neuro: normal, sensory motor intact, A&Ox3 Triage Information Reviewed: Yes Vital Signs On Initial Exam: Initial Vitals Temp Pulse Resp BP Pulse Ox 98.5 F 116 20 149/87 98 10/15/18 09:25 10/15/18 09:25 10/15/18 09:25 10/15/18 09:25 10/15/18 09:25 Vital Signs Reviewed: Yes Diagnostics - Vital Signs Vital Signs Temp Pulse Resp BP Pulse Ox 10/15/18 09:25 98.5 F 116 20 149/87 98 - Laboratory Result Diagrams: 10/15/18 09:48 10/15/18 09:48 Lab Statement: Any lab studies that have been ordered have been reviewed, and results considered in the medical decision making process. - Radiology abdomen x-ray Radiology Interpretation Completed By: Radiologist Summary of Radiographic Findings: 1. BILATERAL URETERAL STENTS. 2. CHOLELITHIASIS. ED physician has reviewed this imaging report. Re-Evaluation - Re-Evaluation First Eval Re-Evaluation Time: 11:15 Change: Unchanged Comment: Discussed results and Dr. Felton's plan Second Eval Re-Evaluation Time: 14:42 Change: Unchanged Abdominal Pain Fem Course/Dx - Course Course Of Treatment: A 73 y/o female presents to [facility] with a chief complaint of constant abdominal pain for 2 weeks. She says that she had a blood test done last week that showed some renal failure and that Dr. Dale and Dr. Felton referred her to the ED to get admitted. Abdomen x-ray impression: 1. BILATERAL URETERAL STENTS. 2. CHOLELITHIASIS. In the ED course the patient was given Sodium Chloride IV. Blood work, chemistries and UA obtained. Discussed case with Dr. Felton who recommended hydrating the patient, speaking to Dr. Dale and discharge. Uptaded Dr. Dale. Dx: Chronic renal failure. UTI. The patient will be discharged home with a - Diagnoses Differential Diagnosis: Positive: Urinary Tract Infection, Other - renal failure Provider Diagnoses: Chronic renal failure, UTI (urinary tract infection) - Provider Notifications Discussed Care Of Patient With: Ramon Felton Time Discussed With Above Provider: 11:08 Instructed by Provider To: Other - recommended hydrating the patient, speaking to Dr. Dale and discharge. Discharge - Sign-Out/Discharge Documenting (check all that apply): Patient Departure - DC Patient Received Moderate/Deep Sedation with Procedure: No - Discharge Plan Condition: Stable Disposition: HOME Prescriptions: Sulfamethox/Trimethoprim DS* [Bactrim DS 800/160 TAB*] 1 tab PO BID #10 tab Patient Education Materials: Urinary Tract Infection in Women (ED) Referrals: Reji Dale MD [Primary Care Provider] - 3 Days Additional Instructions: Return to the ED if you experience any new or worsening symptoms. - Billing Disposition and Condition Condition: STABLE Disposition: Home - Attestation Statements Document Initiated by Scribe: Yes Documenting Scribe: Bulmaro Angel Provider For Whom Selin is Documenting (Include Credential): Grady Berkowitz MD Scribe Attestation: Bulmaro Soto, scribed for Grady Berkowitz MD on 10/15/18 at 1617. Scribe Documentation Reviewed: Yes Provider Attestation: The documentation as recorded by the Bulmaro albert accurately reflects the service I personally performed and the decisions made by , Grady Berkowitz MD Status of Scribe Document: Viewed Consult Consult: At 11:[address] Dale, the patient's PCP, on plan.
--- OUTSIDE RECORDS SUMMARY | 2018-10-15 10:06 | XMS REPORT | Continuity of Care Document ---
:1945 External Reference #:[id number] Author Name Marge Patel O.D. Address [address] [place] [address] Care Team Providers Name Role Phone Reji Dale M.D. Primary Care Physician Unavailable Payers Date Identification Numbers Payment Provider Subscriber Policy Number: [id number] Medicare - [facility] ([place], [place]) Kirstin Mcrae PayID: [id number] [place] [address] Policy Number: [id number] Medicaid Kirstin Mcrae PayID: [id number] [address] [place] [address] Problems Active Problems Provider Date H/O: anorexia nervosa Onset: Hyperthyroidism Onset: Anxiety Onset: Schizophrenia Onset: History of malignant neoplasm of colon Onset: Anemia Onset: Regular astigmatism Marge Patel O.D. Onset: 10/07/2018 Visual disturbance Marge Patel O.D. Onset: 10/07/2018 Degeneration of macula due to cyst, hole or Marge Patel O.D. Onset: 02/12 pseudohole Astigmatism Marge Patel O.D. Onset: 02/12/2018 Presbyopia Marge Patel O.D. 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 Onset: 2016 Myopia Joey River M.D. Onset: 01/29/2016 Optic atrophy Joey River M.D. Onset: 01/29/2016 Nuclear senile cataract Joey River M.D. Onset: 01/29/2016 Family History Date Family Member(s) Observation Comments Father Brain tumor Mother No Current Problems Social History Type Date Description Comments Sex Unknown Marital Status Single Occupation [employer] Work Status Part-Time Employment ETOH Use Never used alcohol Tobacco Use Start: Unknown Patient has never smoked Recreational Drug Use Never Used Drugs Smoking Status Reviewed: 10/07/18 Patient has never smoked Allergies, Adverse Reactions, Alerts Description No Known Drug Allergies Medications Active Medications SIG Qnty Indications Ordering Provider Date Aripiprazole Unknown 15mg Tablets Olanzapine Unknown 10mg Tablets Omeprazole Vikram Dumont M.D. 20mg Capsules Levothyroxine Sodium Reji Dale 112mcg M.D. Tablets Fibercon prn Unknown 625mg Tablets Imiquimod Unknown 5% Cream Meclizine HCL Take 1 Tablet By Unknown 25mg Tablets Mouth Two Times Daily as Needed Zofran Unknown 8mg Tablets Miralax Unknown 3350NF Packet Ciprofloxacin HCL Vorha, Ramon 500mg M.D. Tablets History Medications Lorazepam as needed Lolita Mckenna - 01/27/2017 0.5mg Tablets F.N.P Procedures Date Code Description Status 02/12/2018 53355 Scanning Computerized Opthalmic Diagnostic Posterior Seg Completed Retina 02/12/2018 27250 Est Patient Comprehensive Exam Completed 01/30/2017 15567 Est Patient Comprehensive Exam Completed 01/29/2016 14898 Determination Of Refractive State Completed 01/29/2016 05159 Est Patient Comprehensive Exam Completed 03/02/2014 69804 Determination Of Refractive State Completed 03/02/2014 33138 Est Patient Comprehensive Exam Completed 03/04/2012 04348 Est Patient Comprehensive Exam Completed 02/27/2011 48933 Est Patient Comprehensive Exam Completed 02/27/2011 00405 Determination Of Refractive State Completed 02/20/2011 99852 Visual Field Exam Extended Completed 02/08/2010 16634 Visual Field Exam Extended Completed 02/08/2010 45592 Determination Of Refractive State Completed 02/08/2010 48366 Est Patient Comprehensive Exam Completed 02/01/2009 46853 Est Patient Intermediate Exam Completed 08/09/2008 67011 Visual Field Exam Extended Completed 08/01/2008 43684 Est Patient Comprehensive Exam Completed 11/01/2004 70387 Determination Of Refractive State Completed 11/01/2004 30530 Est Patient Comprehensive Exam Completed Plan of Treatment 10/07/2018 - Marge Patel O.D.H53.8 Other visual disturbancesComments: Smoking can increase the risk of developing or worsening any eye related disease , as well as affect your overall health. If you are a smoker, we strongly recommend that you quit.If you are not a smoker, we strongly recommend that you do not start. If your symptoms persist, please follow up with yourPCPFollow up: as jzfisglebS75.13 Myopia, bilateralComments:You have Myopia, or near sightedness. I have given you a prescription for glasses.H52.223 Regular astigmatism, bilateralComments:Astigmatism is a common vision condition that happens when a person's cornea is not symmetrical. Dr. Patel has given you a prescription to correct for this.H52.4 PresbyopiaComments:You have presbyopia. This is when the lens in your eye loses the ability to change focus, and happens as we age. A pair of reading glasses will help you see up close.
[2018-10-15 10:12] LABS: ABS Basophils 0.1 10^3/ul (0-0.2); ABS Eosinophils 0.2 10^3/ul (0-0.6); ABS Lymphocytes 0.5 10^3/ul (1.0-4.8); ABS Monocytes 0.5 10^3/ul (0-0.8); ABS Neutrophils 7.2 10^3/ul (1.5-7.7); Eosinophil % 1.8 %; Hematocrit 29 % (35-47); Hemoglobin 9.5 g/dL (12.0-16.0); Lymphocyte % 5.9 %; Mean Corpuscular HGB Conc 33 g/dL (31-36); Mean Corpuscular Hemoglobin 28 pg (27-31); Mean Corpuscular Volume 85 fL (80-97); Mean Platelet Volume 6.9 fL (7.4-10.4); Platelet Count 275 10^3/uL (150-450); Red Blood Count 3.43 10^6 /uL (3.70-4.87); Red Cell Distribution Width 15 % (10-15); White Blood Count 8.4 10^3/uL (3.5-10.8)
[2018-10-15 10:14] LABS: Activated Partial Thrombo Time 30.6 seconds (26.0-38.0); Albumin 3.2 g/dL (3.2-5.2); Albumin/Globulin Ratio 0.8 (1-3); BUN/Creatinine Ratio 13.9 (8-20); Calcium 8.8 mg/dL (8.6-10.3); EGFR African American 27.2 (>60); EGFR Non-African American 22.5 (>60); INR 1.26 (0.82-1.09); Potassium 3.8 mmol/L (3.5-5.0); Total Bilirubin 0.4 mg/dL (0.2-1.0); Total Protein 7.2 g/dL (6.4-8.9)
[2018-10-15 11:42] LABS: Urine Appearance Cloudy; Urine Bacteria 1+ (Absent); Urine Bilirubin Negative (Negative); Urine Blood 1+ (Negative); Urine Color Straw; Urine Glucose Negative (Negative); Urine Ketones Negative (Negative); Urine Nitrite Negative (Negative); Urine Protein Negative (Negative); Urine Red Blood Cell 3+(>10/hpf) (Absent); Urine Specific Gravity 1.003 (1.010-1.030); Urine Urobilinogen Negative (Negative); Urine White Blood Cell 3+(>20/hpf) (Absent)
[2018-10-15 15:11] VITALS: BP 179/97
== END | disposition home or self-care (01) ==
LOC: ED 09:24
DX: N39.0 Urinary tract infection, site not specified (principal); N18.9 Chronic kidney disease, unspecified; K80.20 Calculus of gallbladder without cholecystitis without obstruction; Z96.0 Presence of urogenital implants
CPT/HCPCS: 36415; 74018; 80053; 81003; 81015; 83605; 83690; 85025; 85610; 85730; 87086; 96360; 96361; 99283; A9270-GY

== ENCOUNTER 2019-02-04 16:07 | Inpatient (IN) | payer MEDICARE, MEDICAID ==
[2019-02-04] MEDS ORDERED: Acetaminophen TAB* 325 MG PO PRN ×2 (16:08→16:09)
[2019-02-04] MEDS ORDERED: oxyCODONE/Acetamin 5/325 MG* TAB PO PRN (16:09)
--- OUTSIDE RECORDS SUMMARY | 2019-02-04 18:16 | XMS REPORT | Continuity of Care Document ---
:1945 External Reference #:[id number] Author Name Dashawn DO Ngozi Address [address] [place] [address] Care Team Providers Name Role Phone Reji Dale MD - Family Medicine Care Team Information [employer] [address] [employer] [address] Vikram Dumont MD Care Team Information [employer] [address] [employer] [address] [phone] Problems Active Problems Provider Date Neoplasm of digestive system Jon Fajardo M.D. Onset: 03/13/2014 Melena Jon Fajardo M.D. Onset: 06/01/2012 Social History Type Date Description Comments Sex Unknown Tobacco Use Start: Unknown Patient has never smoked Smoking Status Reviewed: 01/03/19 Patient has never smoked Allergies, Adverse Reactions, Alerts Description No Known Drug Allergies Medications Active Medications SIG Qnty Indications Ordering Provider Date Meclizine HCL 1 po bid as 20tabs Reji Dale, 04/18/2016 25mg Tablets needed Levothyroxine Sodium use 1 by mouth 90tabs Reji Dale, 07/16/2015 88mcg q.d Tablets Omeprazole 1 po qd 30caps Reji Dale, 06/10/[address] ALVAREZ Abilify 1 po qd Unknown 09/05/2003 15mg Tablets Olanzapine 1 by mouth Unknown 10mg Tablets twice a day Tylenol 1-2 po as Unknown 325mg Capsules needed Zofran 1 by mouth 30tabs Reji Dale, 8mg Tablets Every 8 Hours as needed Miralax use 1 capful Unknown 3350NF Packet per day for constipation. History Medications Colyte With Flavor by mouth as 4000ml Dashawn Melvin DO 08/17/2018 - Packs directed 01/03/2019 240gm Solution Rec Immunizations Description No Information Available Vital Signs Date Vital Result Comment 01/03/2019 2:42pm Height 61 inches 5'1" Weight 123.00 lb BP Systolic 147 mmHg BP Diastolic 87 mmHg Heart Rate 98 /min BMI (Body Mass Index) 23.2 kg/m2 08/17/2018 2:50pm Height 64 inches 5'4" Weight 124.00 lb BP Systolic 115 mmHg BP Diastolic 89 mmHg Heart Rate 127 /min BMI (Body Mass Index) 21.3 kg/m2 Results Test Date Facility Test Result H/L Range Note CBC Auto Diff 12/30/2018 [facility] [place] White Blood Count 9.5 10^3/uL Normal 3.5- 10.8 Red Blood Count 2.69 10^6/uL Low 3.70-4.87 Hemoglobin 7.7 g/dL Low 12.0-16.0 Hematocrit 23 % Low 35-47 Mean Corpuscular Volume 85 fL Normal 80-97 Mean Corpuscular Hemoglobin 29 pg Normal 27-31 Mean Corpuscular HGB Conc 34 g/dL Normal 31-36 Red Cell Distribution Width 17 % High 10-15 Platelet Count 324 10^3/uL Normal 150-450 Mean Platelet Volume 6.9 fL Low 7.4-10.4 Abs Neutrophils 7.3 10^3/uL Normal 1.5-7.7 Abs Lymphocytes 1.1 10^3/uL Normal 1.0-4.8 Abs Monocytes 0.8 10^3/uL Normal 0-0.8 Abs Eosinophils 0.2 10^3/uL Normal 0-0.6 Abs Basophils 0.0 10^3/uL Normal 0-0.2 Abs Nucleated RBC 0.0 10^3/uL Granulocyte % 76.8 % Lymphocyte % 11.8 % Monocyte % 8.7 % Eosinophil % 2.4 % Basophil % 0.3 % Nucleated Red Blood Cells % 0.0 BMP W/O Egfr(!) 12/11/2018 [facility] Sodium(!) <pending> Potassium(!) <pending> Chloride Serum/Plasma(!) <pending> Carbon Dioxide Ser/Plasm(!) <pending> BUN - Urea Nitrogen(!) <pending> Calcium Ser/Plasma Mass/Vol(!) <pending> Creatinine Serum Mass/Vol(!) <pending> Glucose Serum(!) <pending> CBC W/Auto 12/11/2018 [facility] White Blood <pending> Differential(!) Count Ser Auto CNT RBC Red Blood Count <pending> Hemoglobin Blood <pending> Hematocrit <pending> MCV (Corpuscular Volume) <pending> MCH (Corpuscular Hemoglobin) <pending> MCHC (Corpuscular Hemog Conc) <pending> RDW <pending> Platelet Count Blood Auto CNT <pending> MPV <pending> Lymph% <pending> [place]% <pending> Neutrophil % <pending> Absolute Lymphocytes <pending> Absolute Monocytes <pending> Absolute Neutrophils <pending> BMP W/O Egfr(!) 12/10/2018 [facility] Sodium(!) <pending> Potassium(!) <pending> Chloride Serum/Plasma(!) <pending> Carbon Dioxide Ser/Plasm(!) <pending> BUN - Urea Nitrogen(!) <pending> Calcium Ser/Plasma Mass/Vol(!) <pending> Creatinine Serum Mass/Vol(!) <pending> Glucose Serum(!) <pending> CBC W/Auto 12/10/2018 [facility] White Blood <pending> Differential(!) Count Ser Auto CNT RBC Red Blood Count <pending> Hemoglobin Blood <pending> Hematocrit <pending> MCV (Corpuscular Volume) <pending> MCH (Corpuscular Hemoglobin) <pending> MCHC (Corpuscular Hemog Conc) <pending> RDW <pending> Platelet Count Blood Auto CNT <pending> MPV <pending> Lymph% <pending> [place]% <pending> Neutrophil % <pending> Absolute Lymphocytes <pending> Absolute Monocytes <pending> Absolute Neutrophils <pending> Laboratory test 12/09/2018 [facility] [place] Surgical Pathology SEE RESULT 1 finding Order BELOW BMP W/O Egfr(!) 12/08/2018 [facility] Sodium(!) <pending> Potassium(!) <pending> Chloride Serum/Plasma(!) <pending> Carbon Dioxide Ser/Plasm(!) <pending> BUN - Urea Nitrogen(!) <pending> Calcium Ser/Plasma Mass/Vol(!) <pending> Creatinine Serum Mass/Vol(!) <pending> Glucose Serum(!) <pending> Laboratory test 12/08/2018 [facility] Magnesium Ser/Plasma <pending> finding Mass/Vol CBC W/Auto 12/08/2018 [facility] White Blood Count <pending> Differential(!) Ser Auto CNT RBC Red Blood Count <pending> Hemoglobin Blood <pending> Hematocrit <pending> MCV (Corpuscular Volume) <pending> MCH (Corpuscular Hemoglobin) <pending> MCHC (Corpuscular Hemog Conc) <pending> RDW <pending> Platelet Count Blood Auto CNT <pending> MPV <pending> Lymph% <pending> [place]% <pending> Neutrophil % <pending> Absolute Lymphocytes <pending> Absolute Monocytes <pending> Absolute Neutrophils <pending> BMP W/O Egfr(!) 12/07/2018 [facility] Sodium(!) <pending> Potassium(!) <pending> Chloride Serum/Plasma(!) <pending> Carbon Dioxide Ser/Plasm(!) <pending> BUN - Urea Nitrogen(!) <pending> Calcium Ser/Plasma Mass/Vol(!) <pending> Creatinine Serum Mass/Vol(!) <pending> Glucose Serum(!) <pending> CBC W/Auto 12/07/2018 [facility] White Blood <pending> Differential(!) Count Ser Auto CNT RBC Red Blood Count <pending> Hemoglobin Blood <pending> Hematocrit <pending> MCV (Corpuscular Volume) <pending> MCH (Corpuscular Hemoglobin) <pending> MCHC (Corpuscular Hemog Conc) <pending> RDW <pending> Platelet Count Blood Auto CNT <pending> MPV <pending> Lymph% <pending> [place]% <pending> Neutrophil % <pending> Absolute Lymphocytes <pending> Absolute Monocytes <pending> Absolute Neutrophils <pending> CBC W/Auto 12/06/2018 [facility] White Blood <pending> Differential(!) Count Ser Auto CNT RBC Red Blood Count <pending> Hemoglobin Blood <pending> Hematocrit <pending> MCV (Corpuscular Volume) <pending> MCH (Corpuscular Hemoglobin) <pending> MCHC (Corpuscular Hemog Conc) <pending> RDW <pending> Platelet Count Blood Auto CNT <pending> MPV <pending> Lymph% <pending> [place]% <pending> Neutrophil % <pending> Absolute Lymphocytes <pending> Absolute Monocytes <pending> Absolute Neutrophils <pending> Laboratory test finding 12/06/2018 [facility] Inr(!) <pending> BMP W/O Egfr(!) 12/06/2018 [facility] Sodium(!) <pending> Potassium(!) <pending> Chloride Serum/Plasma(!) <pending> Carbon Dioxide Ser/Plasm(!) <pending> BUN - Urea Nitrogen(!) <pending> Calcium Ser/Plasma Mass/Vol(!) <pending> Creatinine Serum Mass/Vol(!) <pending> Glucose Serum(!) <pending> Stool Occult BLD 12/05/2018 [facility] Z#Other Observations <pending > 1-3 SPCS Diag Iron/Uibc/Tibc/%Sat 12/05/2018 [facility] Iron-Total <pending> Iron-Uibc <pending> Iron Binding Capacity Mass/Vol <pending> % Iron Saturation <pending> Laboratory test 12/05/2018 [facility] Ferritin Ser/Plas <pending> finding Mass/Vol(!) Vitamin B12 Ser Mass/Vol <pending> TSH Thyroid Stim Hormone(!) <pending> Laboratory test 12/05/2018 [facility] Lactic Acid <pending> finding Ser/Plas Mass/Vol CMP(!) 12/05/2018 [facility] Sodium(!) <pending> Potassium(!) <pending> Chloride Serum/Plasma(!) <pending> Carbon Dioxide Ser/Plasm(!) <pending> BUN - Urea Nitrogen(!) <pending> Calcium Ser/Plasma Mass/Vol(!) <pending> Creatinine Serum Mass/Vol(!) <pending> Glucose Serum(!) <pending> BUN/Creatinine Ratio(!) <pending> Albumin Serum/Plasma(!) <pending> Alkaline Phosphatase(!) <pending> Bilirubin Total Mass/Vol(!) <pending> Ast - Sgot <pending> Alt - SGPT <pending> Protein Total <pending> Laboratory test 12/05/2018 [facility] C-Reative Protein <pending> finding Hemoglobin And 12/05/2018 [facility] Hemoglobin Blood <pending> Hematocrit Hematocrit <pending> CBC W/Auto 12/05/2018 [facility] White Blood <pending> Differential(!) Count Ser Auto CNT RBC Red Blood Count <pending> Hemoglobin Blood <pending> Hematocrit <pending> MCV (Corpuscular Volume) <pending> MCH (Corpuscular Hemoglobin) <pending> MCHC (Corpuscular Hemog Conc) <pending> RDW <pending> Platelet Count Blood Auto CNT <pending> MPV <pending> Lymph% <pending> [place]% <pending> Neutrophil % <pending> Absolute Lymphocytes <pending> Absolute Monocytes <pending> Absolute Neutrophils <pending> Xray 12/05/2018 [facility] [place] Radiology US, Renal, <pending> Complete (57652) Xray 12/05/2018 [facility] [place] Chest/Abd/Pel <pending> W/O Laboratory test 10/12/2018 [facility] [place] Surgical SEE RESULT BELOW 2, 3 finding Pathology 1 SEE RESULT BELOW Name: KIRSTIN RESENDEZ : [address]: Estephania Malik MD Acct: [id number] Unit: [id number] AGE: 73 Location: [place] [address] Re12/05/18 Dis: 12/11/18 SEX: F Status: DIS IN SPEC: [id number] FAITH: 12/09/18- SUBM DR: Dashawn Melvin DO REQ: [id number] RECD: 12/09/18 STATUS: ABDIRAHMAN FERNANDEZ DR: Tab Mata MD _ ORDERED: LEVEL 4/3, SPEC STAIN ORG, IHC TECH, ADD, IHC TECH, 1ST FINAL DIAGNOSIS 1. Small bowel, duodenum, biopsy: -- Small bowel mucosa with normal villous architecture and no significant pathologic abnormality. 2. Stomach, polyps, biopsy: -- Fundic gland polyp. 3. Gastroesophageal junction nodularity at 42 cm, biopsy: -- Acute esophagitis; see comment. -- Gastric mucosa with reactive foveolar hyperplasia. -- No goblet cell/intestinal metaplasia or dysplasia identified. Comment: A histochemical stain for fungal organisms (GMS) was performed with appropriate controls on part 3 and is negative. Immunohistochemical stains, with appropriately reacting controls, 4 HSV and CMV, were performed on sections cut from specimen 3 and are negative. CLINICAL HISTORY Anemia; nausea and vomiting PRE-OPERATIVE DIAGNOSIS 1) Rule out celiac; 3) stain for CMB,HSV CONTINUED ON NEXT PAGE DEPARTMENT OF PATHOLOGY, [address] [place] [address] Doni Rivero M.D. Director [facility] # [id number] RUN DATE: 12/17/18 [facility] LAB LIVE PAGE 2 Patient: KIRSTIN RESENDEZ [id number] (Continued) POST-OPERATIVE DIAGNOSIS (Continued) POST-OPERATIVE DIAGNOSIS EGD: esophagus ??? 42 cm at gastroesophageal junction; nodularity scant small ulceration; gastric ??? mild antral gastritis biopsy; LEWIS test; duodenum ??? normal; biopsy GROSS DESCRIPTION 1. The specimen is received in formalin labeled, Biopsy Duodenum, and consists of two tiwari-red irregular to polypoid soft tissue fragments measuring 0.5 x 0.3 x 0.3 cm and 0.5 x 0.4 x 0.2 cm, which are entirely submitted in one cassette. 2. The specimen is received in formalin labeled, Biopsy Gastric Polyps, and consists of two tiwari-pink irregular to polypoid soft tissue fragments measuring 0.4 x 0.4 x 0.2 cm and 0.5 x 0.3 x 0.1 cm, which are entirely submitted in one cassette. 3. The specimen is received in formalin labeled, Biopsy GE Junction Nodularity at 42 cm, and consists of a 0.9 x 0.4 x 0.3 cm aggregate of yellow white two red-brown irregular to polypoid soft tissue fragments, which is entirely submitted in one cassette. Signed by and Reported on: Lolita Fitch MD 12/17/18 1546 END OF REPORT DEPARTMENT OF PATHOLOGY, [address] [place] [address] Doni Rivero M.D. Director [facility] # [id number] 2 [id number] SEE RESULT BELOW Name: KIRSTIN RESENDEZ : [address]: Dashawn Melvin DO Acct: [id number] Unit: [id number] AGE: 73 Location: [facility] Re10/12/18 SEX: F Status: DEP REF SPEC: [id number] FAITH: 10/12/18-[address]: Dashawn Melvin DO REQ: [id number] RECD: 10/12/181224 STATUS: ABDIRAHMAN FERNANDEZ DR: Reji Dale MD _ ORDERED: LEVEL 4 COMMENTS: [id number] FINAL DIAGNOSIS Colon, cecum, biopsy: -- Tubular adenoma. -- No high grade dysplasia or malignancy. POST-OPERATIVE DIAGNOSIS Colonoscopy: to terminal ileum; widely patent anastomosis; cecal polyp biopsy ; internal hemorrhoid GROSS DESCRIPTION The specimen is received in formalin labeled, Biopsy Cecal Polyp, and consists of a 0.5 x 0.3 by up to 0.2 cm tiwari irregular to polypoid soft tissue fragment which is submitted entirely in one cassette. Signed by and Reported on: Lolita Fitch MD 10/14/18 1146 END OF REPORT DEPARTMENT OF PATHOLOGY, [address] [place] [address] Doni Rivero M.D. Director [facility] # [id number] SEE RESULT BELOW Name: KIRSTIN RESENDEZ : [address]: Dashawn Melvin DO Acct: [id number] Unit: [id number] AGE: 73 Location: [facility] Re10/12/18 SEX: F Status: DEP REF SPEC: [id number] FAITH: 10/12/18-1426 [facility] DR: Dashawn Melvin DO REQ: [id number] RECD: 10/12/186626 STATUS: ABDIRAHMAN FERNANDEZ DR: Reji Dale MD _ ORDERED: LEVEL 4 COMMENTS: [id number] FINAL DIAGNOSIS Colon, cecum, biopsy: -- Tubular adenoma. -- No high grade dysplasia or malignancy. POST-OPERATIVE DIAGNOSIS Colonoscopy: to terminal ileum; widely patent anastomosis; cecal polyp biopsy ; internal hemorrhoid GROSS DESCRIPTION The specimen is received in formalin labeled, Biopsy Cecal Polyp, and consists of a 0.5 x 0.3 by up to 0.2 cm tiwari irregular to polypoid soft tissue fragment which is submitted entirely in one cassette. Signed by and Reported on: Lolita Fitch MD 10/14/18 1146 END OF REPORT DEPARTMENT OF PATHOLOGY, [address] [place] [address] Doni Rivero M.D. Director [facility] # [id number] Procedures Date Code Description Status 10/12/2018 84981 Moderate Sedation Services; Same Phys Each Additional 15 Completed Mins 10/12/2018 82352 Colonscopy+Biopsy Completed Medical Devices Description No Information Available Encounters Type Date Location Provider Dx Diagnosis Office Visit 08/17/2018 Gastroenterology Dashawn Melvin, K59.00 Constipation , 3:00p [facility] unspecified K62.5 Hemorrhage of anus and rectum Z85.048 Prsnl hx of malig neoplm of rectum, rectosig junct, and anus Z85.038 Personal history of malignant neoplasm of large intestine Assessments Date Code Description Provider 01/03/2019 D64.9 Anemia, unspecified Dashawn Melvin, DO 01/03/2019 K21.0 Gastro-esophageal reflux disease with esophagitis Dashawn Ngozi, DO 01/03/2019 R11.2 Nausea with vomiting, unspecified Dashawn Ngozi, DO 01/03/2019 Z85.048 Personal history of other malignant neoplasm of Dashawn Ngozi, DO rectum, rectosigmoid junction, and anus 10/12/2018 Z85.038 Personal history of other malignant neoplasm of Dashawn Medinardan, DO large intestine 10/12/2018 D12.0 Benign neoplasm of cecum Dashawn Melvin, DO 10/12/2018 K64.8 Other hemorrhoids Dashawn Melvin, DO 08/17/2018 K59.00 Constipation, unspecified Dashawn Ngozi, DO 08/17/2018 K62.5 Hemorrhage of anus and rectum Dashawn Ngozi, DO 08/17/2018 Z85.048 Personal history of other malignant neoplasm of Dashawn Ngozi, DO rectum, rectosigmoid junction, and anus 08/17/2018 Z85.038 Personal history of other malignant neoplasm of Dashawn Ngozi, DO large intestine Plan of Treatment Future Appointment(s):01/18/2019 7:30 am - [facility]01/03/2019 - Dashawn Melvin, DOD64.9 Anemia, dwlsqlxotuyQ44.0 Gastro-esophageal reflux disease with ujxzhefmgpuF30.2 Nausea with vomiting, bhqmzjpggsnM52.048 Personal history of other malignant neoplasm of rectum, rectosigmoid junction, and anus Functional Status Description No Information Available Mental Status Description No Information Available Referrals Description No Information Available
--- OUTSIDE RECORDS SUMMARY | 2019-02-04 18:16 | XMS REPORT | Continuity of Care Document ---
:1945 External Reference #:[id number] Author Name Dashawn DO Ngozi Address [address] [place] [address] Care Team Providers Name Role Phone Reji Dale MD - Family Medicine Care Team Information Cap Machine Operator [phone] Vikram Dumont MD Care Team Information Cap Machine Operator [phone] Problems Active Problems Provider Date Neoplasm of [...] H/L Range Note CBC Auto Diff 12/30/2018 [facility] White Blood Count 9.5 10^3/uL Normal 3.5- [...] Auto CNT <pending> MPV <pending> Lymph% <pending> [place]% <pending> Neutrophil % <pending> Absolute Lymphocytes <pending> [...] Auto CNT <pending> MPV <pending> Lymph% <pending> [place]% <pending> Neutrophil % <pending> Absolute Lymphocytes <pending> Absolute Monocytes <pending> Absolute Neutrophils <pending> Laboratory test 12/09/2018 [facility] Surgical Pathology SEE RESULT 1 finding Order [...] Auto CNT <pending> MPV <pending> Lymph% <pending> [place]% <pending> Neutrophil % <pending> Absolute Lymphocytes <pending> [...] Auto CNT <pending> MPV <pending> Lymph% <pending> [place]% <pending> Neutrophil % <pending> Absolute Lymphocytes <pending> Absolute Monocytes <pending> Absolute Neutrophils <pending> CBC W/Auto 12/06/2018 [facility] White Blood <pending> Differential(!) Count Ser Auto CNT RBC Red Blood Count <pending> Hemoglobin Blood <pending> Hematocrit <pending> MCV (Corpuscular Volume) <pending> MCH (Corpuscular Hemoglobin) <pending> MCHC (Corpuscular Hemog Conc) <pending> RDW <pending> Platelet Count Blood Auto CNT <pending> MPV <pending> Lymph% <pending> [place]% <pending> Neutrophil % <pending> Absolute Lymphocytes <pending> [...] Auto CNT <pending> MPV <pending> Lymph% <pending> [place]% <pending> Neutrophil % <pending> Absolute Lymphocytes <pending> Absolute Monocytes <pending> Absolute Neutrophils <pending> Xray 12/05/2018 [facility] Radiology US, Renal, <pending> Complete ([id number]) Xray 12/05/2018 [facility] Radiology CT Chest/Abd/Pel <pending> W/O Laboratory test 10/12/2018 [facility] Surgical SEE RESULT BELOW 2, 3 finding Pathology 1 SEE RESULT BELOW Name: KIRSTIN RESENDEZ : [address]: Estephania Malik MD Acct: [id number] Unit: [id number] AGE: 73 Location: [place] [address] Re12/05/18 Dis: 12/11/18 SEX: F Status: DIS IN SPEC: [id number] FAITH: 12/09/18- SUBM DR: Dashawn Melvin DO REQ: [id number] RECD: 12/09/18 STATUS: ABDIRAHMAN FERNANDEZ DR: Tab [...] CONTINUED ON NEXT PAGE DEPARTMENT OF PATHOLOGY, [address] [place] [address] Doni Rivero M.D. Director [facility] # [id number] RUN DATE: 12/17/18 [facility] LAB LIVE PAGE 2 Patient: KIRSTIN RESENDEZ [id number] (Continued) POST-OPERATIVE DIAGNOSIS (Continued) POST-OPERATIVE DIAGNOSIS EGD: [...] END OF REPORT DEPARTMENT OF PATHOLOGY, [address] [address] Doni Rivero M.D. Director [facility] # [id number] SEE RESULT BELOW Name: KIRSTIN RESENDEZ : [address]: Dashawn Melvin DO Acct: [id number] Unit: [id number] AGE: 73 Location: [facility] Re10/12/18 SEX: F Status: DEP REF SPEC: [id number] FAITH: 10/12/18-[address]: Dashawn Melvin DO REQ: [id number] RECD: 10/12/185137 STATUS: ABDIRAHMAN FERNANDEZ DR: Reji Dale MD _ ORDERED: LEVEL 4 COMMENTS: [id number] FINAL DIAGNOSIS Colon, cecum, biopsy: -- Tubular [...] 1146 END OF REPORT DEPARTMENT OF PATHOLOGY, [address] [place] [address] Doni Rivero M.D. Director [facility] # [id number] SEE RESULT BELOW Name: KIRSTIN RESENDEZ : [address]: Dashawn Melvin DO Acct: [id number] Unit: [id number] AGE: 73 Location: [facility] Re10/12/18 SEX: F Status: DEP REF SPEC: [id number] FAITH: 10/12/18-1426 [facility] DR: Dashawn Melvin DO REQ: [id number] RECD: 10/12/186015 STATUS: ABDIRAHMAN FERNANDEZ DR: Reji Dale MD _ ORDERED: LEVEL 4 COMMENTS: [id number] FINAL DIAGNOSIS Colon, cecum, biopsy: -- Tubular [...] 1146 END OF REPORT DEPARTMENT OF PATHOLOGY, [address] [place] [address] Doni Rivero M.D. Director [facility] # [id number] Procedures Date Code Description Status 10/12/2018 22738 Moderate Sedation Services; Same Phys Each Additional 15 Completed Mins 10/12/2018 45962 Colonscopy+Biopsy Completed Medical Devices Description No Information Available Encounters Type Date Location Provider Dx Diagnosis Office Visit 08/17/2018 Gastroenterology Dashawn Melvin, K59.00 Constipation , 3:00p [facility] unspecified K62.5 Hemorrhage of anus and rectum [...] of Treatment Future Appointment(s):01/18/2019 7:30 am - [facility]01/03/2019 - Dashawn Melvin, DOD64.9 Anemia, erazvvdwsquH63.0 Gastro-esophageal reflux disease with hrbhpvstaghW32.2 Nausea with vomiting, amkuiapzqayC02.048 Personal history of other malignant neoplasm of rectum, rectosigmoid junction, and anus Functional Status Description No Information Available Mental Status Description No Information Available Referrals Description No Information Available
--- OUTSIDE RECORDS SUMMARY | 2019-02-04 18:16 | XMS REPORT | Continuity of Care Document ---
:1945 External Reference #:[id number] Author Name SUE Mcneill Address [address] [facility] [place] [address] Care Team Providers Name Role Phone [facility] - Care Team Information Professional Services Specialist [phone] G[facility] Татьяна Chavez NP Care Team Information Professional Services Specialist [phone] Problems Active Problems Provider Date Constipation Gem Ochoa M.D. Onset: 03/27/2011 Chronic undifferentiated schizophrenia Gem Ochoa M.D. Onset: 03/27 Hypothyroidism Gem Ochoa M.D. Onset: 03/27/2011 FH: Cardiovascular disease Gem Ochoa M.D. Onset: 03/27/2011 Schizophrenia Reji Dale M.D. Onset: 06/10/2017 Vomiting, unspecified Reji Dale M.D. Onset: 12/08/2016 Anxiety state Reji Dale M.D. Onset: 06/06/2016 Malignant tumor of sigmoid colon Reji Dale M.D. Onset: 09/29/2014 Acute bronchitis Reji Dale M.D. Onset: 07/17/2012 Social History Type Date Description Comments Sex Unknown Tobacco Use Start: Unknown Nonsmoker ETOH Use Denies alcohol use Tobacco Use Start: Unknown Nonsmoker Smoking Status Reviewed: 01/27/19 Nonsmoker Allergies, Adverse Reactions, Alerts Description No Known Drug Allergies Medications Active Medications SIG Qnty Indications Ordering Provider Date Omeprazole 1 po qd 30caps Reji Dale, 06/10/2013 20mg Capsules Leeann Martínez 1 po qd Family Medicine 09/05/2003 15mg [facility] Olanzapine 1 po bid Unknown 10mg Tablets Tylenol 1-2 po as Unknown 325mg Capsules needed Zofran 1 by mouth 30tabs R11.2 Lolita Clarisa, 8mg Tablets three times a [employer] day as needed for nausea Miralax 17 grams every Unknown [id number] Packet day with large glass water prn Meclizine as needed for Unknown trips Ferrousul 1 by mouth Unknown 325(65Fe) mg every other day Tablets for anemia Levothyroxine Sodium 1 by mouth 90tabs Reji Dale, every day M.DAlice 88mcg Tablets Keflex 1 by mouth Unknown 500mg Capsules twice a day Magnesium Oxide 1 by mouth Unknown 400mg every morning Capsules History Medications Bactrim DS 1 by mouth twice 14tabs Lolita Mckenna, 10/08/2018 - 800-160mg a day x 7 days [employer] 10/18/2018 Tablets Immunizations CPT Code Status Date Vaccine Lot # [id number] Given 01/07/2019 Influenza Vac, Quadriv[place], [place] [id number] Given 02/01/2016 Pneumococcal Conjugate Vacc-13 [id number] Given 08/29/2013 Zostivax [id number] Given 01/28/2012 DO Not Use Split Influenza Virus Vaccine [id number] Given 01/10/2011 Split Influenza Medicare: Fluzone [id number] Given 06/15/2009 Tdap Tetanus, W Pertussis [id number] Given 03/04/2008 DO Not Use Split Influenza Virus Vaccine [id number] Given 02/25/2007 DO Not Use Split Influenza Virus Vaccine [id number] Given 02/10/2003 DO Not Use Split Influenza Virus Vaccine [id number] Given 03/03/2002 DO Not Use Split Influenza Virus Vaccine Vital Signs Date Vital Result Comment 01/27/2019 6:18pm BP Systolic 142 mmHg BP Diastolic 88 mmHg Heart Rate 64 /min Body Temperature 101.7 F Respiratory Rate 16 /min Weight 120.00 lb 12/13/2018 12:01pm BP Systolic 106 mmHg BP Diastolic 70 mmHg Heart Rate 100 /min Body Temperature 98.1 F Respiratory Rate 16 /min Weight 116.00 lb Results Test Date Facility Test Result H/L Range Note Ua - Micro 01/27/2019 [facility] Medicine Appearance slightly cloudy (a) (607)- - Color yellow Glucose, Urine (Fma/CMC/CTX) neg Bilirubin neg Ketones neg SP Grav 1.010 Blood moderate PH 6.5 Protein neg Urobil 0.2 Nitrite neg Leukocytes (Fma/CMC/Centrex) small Hyaline - /Lpf Granular - /Lpf WBC (Fma,Centrex) 8-10 RBC 3-4 Mucus (Fma/CBC/Centrex) - /Lpf Epith few /Lpf Bacteria trace /Hpf Amorphous (Fma/CMC/Centrex) - /Lpf Crystals, Fluid (Fma/CMC/CTX) - Z#Comments - CBC Auto Diff 01/14/2019 [facility] White Blood Count 7.3 10^3/uL Normal 3.5- 10.8 Red Blood Count 2.41 10^6/uL Low 3.70-4.87 Hemoglobin 7.0 g/dL Low 12.0-16.0 Hematocrit 21 % Low 35-47 Mean Corpuscular Volume 86 fL Normal 80-97 Mean Corpuscular Hemoglobin 29 pg Normal 27-31 Mean Corpuscular HGB Conc 34 g/dL Normal 31-36 Red Cell Distribution Width 16 % High 10-15 Platelet Count 299 10^3/uL Normal 150-450 Mean Platelet Volume 6.6 fL Low 7.4-10.4 Abs Neutrophils 5.9 10^3/uL Normal 1.5-7.7 Abs Lymphocytes 0.7 10^3/uL Low 1.0-4.8 Abs Monocytes 0.5 10^3/uL Normal 0-0.8 Abs Eosinophils 0.1 10^3/uL Normal 0-0.6 Abs Basophils 0.1 10^3/uL Normal 0-0.2 Abs Nucleated RBC 0.0 10^3/uL Granulocyte % 80.9 % Lymphocyte % 9.7 % Monocyte % 6.6 % Eosinophil % 1.9 % Basophil % 0.9 % Nucleated Red Blood Cells % 0.0 Retic Count 01/13/2019 [facility] Retic Count 1.9 % High 0.5-1.5 Corrected Retic Count 0.9 % Normal 0.5-1.5 Maturation Factor Retic 2.0 Retic Index 0.50 Mean Retic Volume 105.4 Immature Retic Fraction 0.39 RBC Retic Count 2.56 10^6/uL Low 3.70-4.87 Hematocrit for Retic CNT 22 % Low 35-47 Laboratory test finding 01/13/2019 [facility] Erythrocyte Sed Rate > 120 mm/Hr High 0-29 Urinalysis Profile 01/13/2019 [facility] Urine Color Yellow Urine Appearance Cloudy Urine Specific [place] 1.005 Low 1.010-1.030 Urine pH 6.0 Normal 5-9 Urine Urobilinogen Negative Negative Urine Ketones Negative Negative Urine Protein Negative Negative Urine Leukocytes 3+ Abnormal Negative Urine Blood 2+ Abnormal Negative Urine Nitrite Negative Negative Urine Bilirubin Negative Negative Urine Glucose Negative Negative Urine White Blood Cell 3+(>20/hpf) Abnormal Absent Urine Red Blood Cell Absent Absent Urine Bacteria 1+ Abnormal Absent Urine Renal Epithelial Cells Present Abnormal Absent Comp Metabolic Panel 01/13/2019 [facility] Sodium 138 mmol/L Normal 135-145 Chloride 109 mmol/L Normal 101-111 Co2 Carbon Dioxide 21 mmol/L Low 22-32 Calcium 8.8 mg/dL Normal 8.6-10.3 Albumin 3.8 g/dL Normal 3.2-5.2 Total Bilirubin 0.30 mg/dL Normal 0.2-1.0 Potassium 5.5 mmol/L High 3.5-5.0 Anion Gap 8 mmol/L Normal 2-11 Glucose 94 mg/dL Normal 70-100 Blood Urea Nitrogen 69 mg/dL High 6-24 Creatinine 3.42 mg/dL High 0.51-0.95 BUN/Creatinine Ratio 20.2 High 8-20 Total Protein 7.9 g/dL Normal 6.4-8.9 Globulin 4.1 g/dL High 2-4 Albumin/Globulin Ratio 0.9 Low 1-3 Alkaline Phosphatase 86 U/L Normal 34-104 Alt 12 U/L Normal 7-52 Ast 11 U/L Low 13-39 Egfr Non- 13.2 >60 Egfr 16.0 >60 1 Laboratory test finding 01/13/2019 [facility] Uric Acid 5.1 mg/dL Normal 2.3- 6.6 Iron (Fe) 47 g/dL Low 50-212 Carcinoembryonic Antigen Cea 2.0 ng/mL Normal 0.1-5.0 2 Ferritin 306.8 ng/mL Normal 11-307 Urine Culture And 01/13/2019 [facility] Urine Culture SEE RESULT 3 Sensitivities BELOW Laboratory test 01/13/2019 [facility] Erythropoietin 5.8 mIU/mL 2.6 - 4 finding 18.5 Protein 01/13/2019 [facility] Total Protein(Pep) 8.1 g/dL Abnormal 6.3 - Electrophoresis 7.9 Albumin 3.2 g/dL Abnormal 3.4-4.7 Alpha-1 Globulin 0.4 g/dL Abnormal 0.1-0.3 Alpha-2 Globulin 1.3 g/dL Abnormal 0.6-1.0 Beta Globulin 1.0 g/dL 0.7-1.2 Gamma Globulin 2.2 g/dL Abnormal 0.6-1.6 Albumin/Globulin Ratio 0.65 Impression See Comment 5 CBC Electronic Fma 12/13/2018 [facility](a) WBC 10.5 x10^3/UL High 4.0-10.0 RBC 3.10 x10^6/UL Low 3.93-6.00 HGB 8.7 g/dL Low 12.0-17.0 6 HCT 28 % Low 35-50 7 MCV 89.4 fL 80.0-95.0 MCH 28.1 pg 25.6-32.2 MCHC 31.4 g/dL Low 32.2-36.0 RDW-CV 15.5 % High 11.6-14.4 PLT 349 x10^3/UL 163-400 MPV 8.9 fL Low 9.4-12.4 [place]# 8.37 x10^3/UL High 1.56-6.13 Lymph# 0.90 x10^3/UL Low 1.18-3.74 [place]# 0.57 x10^3/UL 0.24-0.82 Eos # 0.1 x10^3/UL 0.0-0.5 Baso # 0.05 x10^3/UL 0.01-0.08 [place]% 79.9 % High 34.0-70.0 Lymph % 8.6 % Low 20.0-52.0 [place]% 5.4 % 5.0-12.0 Eos% 1.0 % 0.7-7.0 Baso% 0.5 % 0.1-1.2 Basic Metabolic Profile 12/13/2018 [facility](a) Sodium 137 mEq/L 134-149 Potassium 5.3 mEq/L 3.6-5.5 Chloride 104 mEq/L 94-112 Carbon Dioxide 23 mEq/L 21-32 Glucose 104 mg/dL 70-105 BUN 64 mg/dL High 6-26 8 Creatinine 1.9 mg/dL High 0.6-1.4 9 BUN/Creat Ratio 33.7 CALC 8.0-36.0 Calcium 9.7 mg/dL 8.6-10.2 GFR Non- 28 ml/min/1.73m^ Low >=60 GFR 34 ml/min/1.73m^ Low >=60 Stool Occult Blood 12/05/2018 [facility] Stool Occult SEE RESULT BELOW 10 Diag Blood, Diag CBC Auto Diff 12/05/2018 [facility] White Blood Count 12.4 10^3/uL High 3.5- 10.8 Red Blood Count 2.48 10^6/uL Low 3.70-4.87 Hemoglobin 6.6 g/dL Low 12.0-16.0 Hematocrit 20 % Low 35-47 Mean Corpuscular Volume 82 fL Normal 80-97 Mean Corpuscular Hemoglobin 27 pg Normal 27-31 Mean Corpuscular HGB Conc 33 g/dL Normal 31-36 Red Cell Distribution Width 15 % Normal 10-15 Platelet Count 332 10^3/uL Normal 150-450 Mean Platelet Volume 6.1 fL Low 7.4-10.4 Abs Neutrophils 11.0 10^3/uL High 1.5-7.7 Abs Lymphocytes 0.6 10^3/uL Low 1.0-4.8 Abs Monocytes 0.7 10^3/uL Normal 0-0.8 Abs Eosinophils 0.0 10^3/uL Normal 0-0.6 Abs Basophils 0.0 10^3/uL Normal 0-0.2 Abs Nucleated RBC 0.0 10^3/uL Granulocyte % 89.0 % Lymphocyte % 4.5 % Monocyte % 5.9 % Eosinophil % 0.3 % Basophil % 0.3 % Nucleated Red Blood Cells % 0.0 Urinalysis Profile 12/05/2018 [facility] Urine Color Yellow Urine Appearance Turbid Urine Specific [place] 1.006 Low 1.010-1.030 Urine pH 6.0 Normal 5-9 Urine Urobilinogen Negative Negative Urine Ketones Negative Negative Urine Protein 2+(100 mg/dL) Abnormal Negative Urine Leukocytes 3+ Abnormal Negative Urine Blood 1+ Abnormal Negative Urine Nitrite Negative Negative Urine Bilirubin Negative Negative Urine Glucose Negative Negative Urine White Blood Cell 3+(>20/hpf) Abnormal Absent Urine Red Blood Cell 3+(>10/hpf) Abnormal Absent Urine Bacteria Absent Absent Laboratory test 12/05/2018 [facility] Lactic Acid 0.5 mmol/L Normal 0.5-2.0 11 finding Abo/RH Type 12/05/2018 [facility] Patient Blood Type A Positive Comp Metabolic Panel 12/05/2018 [facility] Sodium 133 mmol/L Low 135-145 Chloride 101 mmol/L Normal 101-111 Co2 Carbon Dioxide 20 mmol/L Low 22-32 Glucose 104 mg/dL High 70-100 Blood Urea Nitrogen 70 mg/dL High 6-24 Creatinine 3.75 mg/dL High 0.51-0.95 BUN/Creatinine Ratio 18.7 Normal 8-20 Calcium 8.2 mg/dL Low 8.6-10.3 Total Protein 7.6 g/dL Normal 6.4-8.9 Albumin 3.2 g/dL Normal 3.2-5.2 Globulin 4.4 g/dL High 2-4 Albumin/Globulin Ratio 0.7 Low 1-3 Total Bilirubin 0.30 mg/dL Normal 0.2-1.0 Alkaline Phosphatase 131 U/L High 34-104 Alt 10 U/L Normal 7-52 Ast 9 U/L Low 13-39 Egfr Non- 11.9 >60 Egfr 14.4 >60 12 Potassium 5.2 mmol/L High 3.5-5.0 Anion Gap 12 mmol/L High 2-11 Laboratory test finding 12/05/2018 [facility] C Reactive Protein 80.95 mg/L High <8.01 Type & Screen 12/05/2018 [facility] Patient Blood Type A Positive Antibody Screen NEGATIVE Laboratory test finding 12/05/2018 [facility] Packed Cells SEE RESULTS BELO 13 <SEE NOTE> Urine Culture And 12/05/2018 [facility] Urine Culture SEE RESULT BELOW 14 Sensitivities Comp Metabolic Panel 10/28/2018 [facility] Sodium 134 mmol/L Low 135-145 Potassium 4.8 mmol/L Normal 3.5-5.0 Chloride 104 mmol/L Normal 101-111 Co2 Carbon Dioxide 20 mmol/L Low 22-32 Anion Gap 10 mmol/L Normal 2-11 Glucose 148 mg/dL High 70-100 Blood Urea Nitrogen 45 mg/dL High 6-24 Creatinine 2.55 mg/dL High 0.51-0.95 BUN/Creatinine Ratio 17.6 Normal 8-20 Calcium 8.2 mg/dL Low 8.6-10.3 Total Protein 6.9 g/dL Normal 6.4-8.9 Albumin 3.2 g/dL Normal 3.2-5.2 Globulin 3.7 g/dL Normal 2-4 Albumin/Globulin Ratio 0.9 Low 1-3 Total Bilirubin 0.30 mg/dL Normal 0.2-1.0 Alkaline Phosphatase 181 U/L High 34-104 Alt 13 U/L Normal 7-52 Ast 10 U/L Low 13-39 Egfr Non- 18.6 >60 Egfr 22.5 >60 15 Basic Metabolic Profile 10/18/2018 [facility]) Sodium 137 mEq/L 134-149 Potassium 4.6 mEq/L 3.6-5.5 Chloride 102 mEq/L 94-112 Carbon Dioxide 21 mEq/L 21-32 Glucose 81 mg/dL 70-105 BUN 40 mg/dL High 6-26 16 Creatinine 2.3 mg/dL High 0.6-1.4 17 BUN/Creat Ratio 17.4 CALC 8.0-36.0 Calcium 8.1 mg/dL Low 8.6-10.2 18 GFR Non- 22 ml/min/1.73m^ Low >=60 GFR 27 ml/min/1.73m^ Low >=60 Comp Metabolic Panel 10/15/2018 [facility] Sodium 139 mmol/L Normal 135-145 Potassium 3.8 mmol/L Normal 3.5-5.0 Chloride 110 mmol/L Normal 101-111 Co2 Carbon Dioxide 19 mmol/L Low 22-32 Anion Gap 10 mmol/L Normal 2-11 Glucose 113 mg/dL High 70-100 Blood Urea Nitrogen 30 mg/dL High 6-24 Creatinine 2.16 mg/dL High 0.51-0.95 BUN/Creatinine Ratio 13.9 Normal 8-20 Calcium 8.8 mg/dL Normal 8.6-10.3 Total Protein 7.2 g/dL Normal 6.4-8.9 Albumin 3.2 g/dL Normal 3.2-5.2 Globulin 4.0 g/dL Normal 2-4 Albumin/Globulin Ratio 0.8 Low 1-3 Total Bilirubin 0.40 mg/dL Normal 0.2-1.0 Alkaline Phosphatase 193 U/L High 34-104 Alt 42 U/L Normal 7-52 Ast 25 U/L Normal 13-39 Egfr Non- 22.5 >60 Egfr 27.2 >60 19 Laboratory test 10/15/2018 [facility] Lipase 45 U/L Normal 11.0-82.0 finding Inr/Protime 10/15/2018 [facility] Inr 1.26 High 0.82-1.09 20 Laboratory test 10/15/2018 [facility] Partial Thrombo 30.6 seconds Normal 26.0- 38.0 finding Time PTT CBC Auto Diff 10/15/2018 [facility] White Blood Count 8.4 10^3/uL Normal 3.5- 10.8 Red Blood Count 3.43 10^6/uL Low 3.70-4.87 Hemoglobin 9.5 g/dL Low 12.0-16.0 Hematocrit 29 % Low 35-47 Mean Corpuscular Volume 85 fL Normal 80-97 Mean Corpuscular Hemoglobin 28 pg Normal 27-31 Mean Corpuscular HGB Conc 33 g/dL Normal 31-36 Red Cell Distribution Width 15 % Normal 10-15 Platelet Count 275 10^3/uL Normal 150-450 Mean Platelet Volume 6.9 fL Low 7.4-10.4 Abs Neutrophils 7.2 10^3/uL Normal 1.5-7.7 Abs Lymphocytes 0.5 10^3/uL Low 1.0-4.8 Abs Monocytes 0.5 10^3/uL Normal 0-0.8 Abs Eosinophils 0.2 10^3/uL Normal 0-0.6 Abs Basophils 0.1 10^3/uL Normal 0-0.2 Abs Nucleated RBC 0.0 10^3/uL Granulocyte % 85.4 % Lymphocyte % 5.9 % Monocyte % 6.2 % Eosinophil % 1.8 % Basophil % 0.7 % Nucleated Red Blood Cells % 0.0 Laboratory test finding 10/15/2018 [facility] Lactic Acid 0.5 mmol/L Normal 0.5- 2.0 21 Urinalysis Profile 10/15/2018 [facility] Urine Color Straw Urine Appearance Cloudy Urine Specific [place] 1.003 Low 1.010-1.030 Urine pH 6.0 Normal 5-9 Urine Urobilinogen Negative Negative Urine Ketones Negative Negative Urine Protein Negative Negative Urine Leukocytes 3+ Abnormal Negative Urine Blood 1+ Abnormal Negative Urine Nitrite Negative Negative Urine Bilirubin Negative Negative Urine Glucose Negative Negative Urine White Blood Cell 3+(>20/hpf) Abnormal Absent Urine Red Blood Cell 3+(>10/hpf) Abnormal Absent Urine Bacteria 1+ Abnormal Absent Urine Culture And 10/15/2018 [facility] Urine Culture SEE RESULT 22 Sensitivities BELOW Laboratory test 10/12/2018 [facility] Surgical SEE RESULT 23, 24 finding Pathology BELOW Laboratory test 10/11/2018 [facility]) BUN 40 mg/dL High 6-26 25 finding Creatinine 3.4 mg/dL High 0.6-1.4 26 Comprehensive Metabolic 10/08/2018 [facility]) Sodium 136 mEq/L 134-149 Prof Potassium 4.6 mEq/L 3.6-5.5 Chloride 106 mEq/L 94-112 Carbon Dioxide 21 mEq/L 21-32 Glucose 106 mg/dL High 70-105 27 BUN 46 mg/dL High 6-26 28 Creatinine 2.7 mg/dL High 0.6-1.4 29 BUN/Creat Ratio 17.0 CALC 8.0-36.0 Calcium 8.1 mg/dL Low 8.6-10.2 30 Total Protein 6.4 g/dL 6.4-8.3 Albumin 3.5 g/dL Low 3.8-5.5 31 Globulin 2.9 g/dL 2.0-4.8 A/G Ratio 1.2 CALC 0.6-2.3 Alk. Phosphatase 122 U/L High 30-110 32 Alt (SGPT) 14 U/L 7-35 Ast (Sgot) 11 U/L 5-34 Total Bilirubin 0.3 mg/dL 0.2-1.3 GFR Non- 18 ml/min/1.73m^ Low >=60 GFR 22 ml/min/1.73m^ Low >=60 Ua - Micro (a) 10/08/2018 [facility] Medicine Appearance slightly cloudy (607)- - Color yellow Glucose, Urine (Fma/CMC/CTX) neg Bilirubin neg Ketones neg SP Grav <=1.005 Blood small PH 5.5 Protein neg Urobil 0.2 Nitrite neg Leukocytes (Fma/CMC/Centrex) large Hyaline - /Lpf Granular - /Lpf WBC (Fma,Centrex) >100 RBC 10-12 Mucus (Fma/CBC/Centrex) - /Lpf Epith OCC /Lpf Bacteria 2+ /Hpf Amorphous (Fma/CMC/Centrex) - /Lpf Crystals, Fluid (Fma/CMC/CTX) - Z#Comments - CBC Electronic (Fma New) 10/08/2018 [facility] WBC 10.19 High 4.0- 10.0 (607)- - RBC 3.48 Low 3.93-6.0 Hemoglobin (Fma/CMC/CTX) 9.9 g/dL Low 12.0-17.0 Hematocrit (Fma/CMC/CTX) 30.7 % Low 35.0-50.0 Mean Corpuscular Vol 88.2 fL 80-95 Mean Corpuscular Hemoglobin 28.4 pg 25.6-32.2 Mean Corpuscular Hemo Concen 32.2 g/dL 32.2-36.0 Platelets 290 10^3/ul 163-400 RDW-CV 13.6 11.6-14.4 Mean Platelet Volume 8.6 fL 8.0-12.4 Absolute Neutrophils BLD 8.63 High 1.56-6.13 Absolute Lymphocytes 0.49 Low 1.18-3.74 Absolute Monocytes BLD Auto 0.68 0.24-0.82 Absolute Eos Blood 0.19 0.04-0.54 Absolute Basophils 0.02 0.01-0.08 Neutrophil % 84.6 % High 34.0-70.0 Lymph% 4.8 % Low 20.0-52.0 Monocytes % 6.7 % 5.0-12.0 Eos % 1.9 % 0.7-7.0 Basophil% 0.2 % 0-1.2 Urine Culture And 10/08/2018 [facility] Urine Culture SEE RESULT 33 Sensitivities BELOW CBC Auto Diff 08/11/2018 [facility] White Blood 7.6 10^3/uL Normal 3.5-10.8 Count Red Blood Count 4.18 10^6/uL Normal 3.70-4.87 Hemoglobin 11.9 g/dL Low 12.0-16.0 Hematocrit 36 % Normal 33-41 Mean Corpuscular Volume 85 fL Normal 80-97 Mean Corpuscular Hemoglobin 28 pg Normal 27-31 Mean Corpuscular HGB Conc 33 g/dL Normal 31-36 Red Cell Distribution Width 13 % Normal 10.5-15 Platelet Count 212 10^3/uL Normal 150-450 Mean Platelet Volume 7.3 fL Low 7.4-10.4 Abs Neutrophils 6.1 10^3/uL Normal 1.5-7.7 Abs Lymphocytes 0.8 10^3/uL Low 1.0-4.8 Abs Monocytes 0.7 10^3/uL Normal 0-0.8 Abs Eosinophils 0 10^3/uL Normal 0-0.6 Abs Basophils 0 10^3/uL Normal 0-0.2 Abs Nucleated RBC 0 10^3/uL Granulocyte % 80.1 % Lymphocyte % 9.9 % Monocyte % 8.9 % Eosinophil % 0.6 % Basophil % 0.5 % Nucleated Red Blood Cells % 0 Comp Metabolic Panel 08/11/2018 [facility] Sodium 139 mmol/L Normal 135-145 Potassium 4.1 mmol/L Normal 3.5-5.0 Chloride 106 mmol/L Normal 101-111 Co2 Carbon Dioxide 28 mmol/L Normal 22-32 Anion Gap 5 mmol/L Normal 2-11 Glucose 113 mg/dL High 70-100 Blood Urea Nitrogen 23 mg/dL Normal 6-24 Creatinine 0.74 mg/dL Normal 0.51-0.95 BUN/Creatinine Ratio 31.1 High 8-20 Calcium 9.6 mg/dL Normal 8.6-10.3 Total Protein 6.9 g/dL Normal 6.4-8.9 Albumin 3.8 g/dL Normal 3.2-5.2 Globulin 3.1 g/dL Normal 2-4 Albumin/Globulin Ratio 1.2 Normal 1-3 Total Bilirubin 0.30 mg/dL Normal 0.2-1.0 Alkaline Phosphatase 75 U/L Normal 34-104 Alt 18 U/L Normal 7-52 Ast 12 U/L Low 13-39 Egfr Non- 77.4 >60 Egfr 93.6 >60 34 Laboratory test finding 08/11/2018 [facility] Magnesium 1.8 mg/dL Low 1.9-2.7 Troponin I 0.01 ng/mL <0.04 35 Urinalysis Profile 08/11/2018 [facility] Urine Color Yellow Urine Appearance Cloudy Urine Specific [place] 1.009 Low 1.010-1.030 Urine pH 6.0 Normal 5-9 Urine Urobilinogen Negative Negative Urine Ketones Negative Negative Urine Protein Negative Negative Urine Leukocytes 3+ Abnormal Negative Urine Blood 2+ Abnormal Negative Urine Nitrite Positive Abnormal Negative Urine Bilirubin Negative Negative Urine Glucose Negative Negative Urine White Blood Cell 3+(>20/hpf) Abnormal Absent Urine Red Blood Cell 3+(>10/hpf) Abnormal Absent Urine Bacteria 2+ Abnormal Absent Urine Squamous Epithelial Cell Present Abnormal Absent Urine Culture And Sensitivities 08/11/2018 [facility] Urine Culture SEE RESULT BELOW 36 1 Because ethnic data is not always readily available, this report includes an eGFR for both -Americans and non- Americans. The National Kidney Disease Education Program (NKDEP) does not endorse the use of the MDRD equation for patients that are not between the ages of 18 and 70, are , have extremes of body size, muscle mass, or nutritional status, or are non- or non-. According to the National Kidney Foundation, irrespective of diagnosis, the stage of the disease is based on the level of kidney function: Stage Description GFR(mL/min/1.73 m(2)) 1 Kidney damage with normal or decreased GFR 90 2 Kidney damage with mild decrease in GFR 60-89 3 Moderate decrease in GFR 30-59 4 Severe decrease in GFR 15-29 5 Kidney failure <15 (or dialysis) 2 Nonsmokers: < 2.9 ng/mL Some smokers may have elevated CEA, usually <5.0 ng/mL. Serum markers are not specific for malignancy, and values may vary by method. The testing method is an immunoenzymatic assay manager [employer] performed on [employer] DXI 600. Do not interpret serum CEA levels as absolute evidence of the presence or the absence of malignant disease. Use serum CEA in conjunction with information from the clinical evaluation of the patient and other diagnostic procedures. 3 SEE RESULT BELOW Name: JESSICA RESENDEZ : [address]: Vikram Dumont MD Acct: [id number] Unit: [id number] AGE: 73 Location: [facility] Re01/13/19 SEX: F Status: REG REF SPEC: [id number] FAITH: 01/13/19-[address]: Vikram Dumont MD REQ: [id number] RECD: 01/13/19 STATUS: CANDIS DANIELS DR: Reji Dale MD _ SOURCE: URINE SPDESC: ORDERED: Urine Culture Procedure Result Reported Site Urine Culture Final 01/14/19- 1249 ML No growth of clinically significant organisms * ML - [facility] . END OF REPORT DEPARTMENT OF PATHOLOGY, [address] [place] [address] Doni Rivero M.D. Director CLIA # [id number] 4 Test Performed by: [place] [address] Cloth Handler: rTa Washington M.D. Ph.D.; CLIA# [id number] 5 RESULT: Polyclonal hypergammaglobulinemia Test Performed by: [place] [address] Cloth Handler: Tra Washington M.D. Ph.D.; CLIA# [id number] 6 RESULTS VERIFIED BY REPEAT ANALYSIS 7 RESULTS VERIFIED BY REPEAT ANALYSIS 8 consistent w/ previous results 9 consistent w/ previous results 10 SEE RESULT BELOW Name: JESSICA RESENDEZ : [address]: Neto Leblanc MD Acct: [id number] Unit: [id number] AGE: 73 Location: ED Re12/05/18 SEX: F Status: REG ER SPEC: [id number] FAITH: 12/05/[address] [facility] [address]: Bassam ROGERS REQ: [id number] RECD: 12/05/18 STATUS: CANDIS FERNANDEZ DR: Reji Leblanc MD _ SOURCE: STOOL SPDESC: ORDERED: Occult Bl, Diag Procedure Result Reported Site Stool Occult Blood (1) Final 12/05/18- 1535 ML Stool Occult Blood Negative Collection Date (1) 12/05/18 * ML - Main Lab . END OF REPORT DEPARTMENT OF PATHOLOGY, [address] [place] [address] Doni Rivero M.D. Director [facility] # [id number] 11 [facility] Severe Sepsis and Septic Shock Management Bundle Measure requires all lactic acids initially measuring >2.0 mmol/L be repeated. 12 Because ethnic data is not always readily available, this report includes an eGFR for both -Americans and non- Americans. The National Kidney Disease Education Program (NKDEP) does not endorse the use of the MDRD equation for patients that are not between the ages of 18 and 70, are , have extremes of body size, muscle mass, or nutritional status, or are non- or non-. According to the National Kidney Foundation, irrespective of diagnosis, the stage of the disease is based on the level of kidney function: Stage Description GFR(mL/min/1.73 m(2)) 1 Kidney damage with normal or decreased GFR 90 2 Kidney damage with mild decrease in GFR 60-89 3 Moderate decrease in GFR 30-59 4 Severe decrease in GFR 15-29 5 Kidney failure <15 (or dialysis) 13 SEE RESULTS BELOW [id number] AP TRANSFUSED 12/05/18 1500 14 SEE RESULT BELOW Name: JESSICA RESENDEZ : [address]: Estephania Malik MD Acct: [id number] Unit: [id number] AGE: 73 Location: [facility] 414- Re12/05/18 SEX: F Status: ADM IN SPEC: [id number] FAITH: 12/05/18-[address] [facility] [address]: Bassam ROGERS REQ: [id number] RECD: 12/05/18 STATUS: CANDIS FERNANDEZ DR: Reji Leblanc MD _ SOURCE: URINE SPDESC: ORDERED: Urine Culture Procedure Result Reported Site Urine Culture Final 12/07/18- 1148 ML No growth of clinically significant organisms * ML - Main Lab . END OF REPORT DEPARTMENT OF PATHOLOGY, [address] [place] [address] Doni Rivero M.D. Director [facility] # [id number] 15 Because ethnic data is not always readily available, this report includes an eGFR for both -Americans and non- Americans. The National Kidney Disease Education Program (NKDEP) does not endorse the use of the MDRD equation for patients that are not between the ages of 18 and 70, are , have extremes of body size, muscle mass, or nutritional status, or are non- or non-. According to the National Kidney Foundation, irrespective of diagnosis, the stage of the disease is based on the level of kidney function: Stage Description GFR(mL/min/1.73 m(2)) 1 Kidney damage with normal or decreased GFR 90 2 Kidney damage with mild decrease in GFR 60-89 3 Moderate decrease in GFR 30-59 4 Severe decrease in GFR 15-29 5 Kidney failure <15 (or dialysis) 16 consistent w/ previous results 17 consistent w/ previous results 18 consistent w/ previous results 19 Because ethnic data is not always readily available, this report includes an eGFR for both -Americans and non- Americans. The National Kidney Disease Education Program (NKDEP) does not endorse the use of the MDRD equation for patients that are not between the ages of 18 and 70, are , have extremes of body size, muscle mass, or nutritional status, or are non- or non-. According to the National Kidney Foundation, irrespective of diagnosis, the stage of the disease is based on the level of kidney function: Stage Description GFR(mL/min/1.73 m(2)) 1 Kidney damage with normal or decreased GFR 90 2 Kidney damage with mild decrease in GFR 60-89 3 Moderate decrease in GFR 30-59 4 Severe decrease in GFR 15-29 5 Kidney failure <15 (or dialysis) 20 Standard intensity warfarin therapeutic range: 2.0-3.0 High intensity warfarin therapeutic range: 2.5-3.5 21 [facility] Severe Sepsis and Septic Shock Management Bundle Measure requires all lactic acids initially measuring >2.0 mmol/L be repeated. 22 SEE RESULT BELOW Name: JESSICA RESENDEZ : [address]: Grady Berkowitz MD Acct: [id number] Unit: [id number] AGE: 73 Location: ED Re10/15/18 SEX: F Status: REG ER SPEC: [id number] FAITH: 10/15/[address] [facility] [address]: Grady Berkowitz MD REQ: [id number] RECD: 10/15/18 STATUS: CANDIS FERNANDEZ DR: Reji Dale MD _ S[facility] ORDERED: Urine Culture Procedure Result Reported Site Urine Culture Final 10/16/18- 1325 ML No growth of clinically significant organisms * ML - Main Lab . END OF REPORT DEPARTMENT OF PATHOLOGY, [address] [place] [address] Doni Rivero M.D. Director [facility] # [id number] SEE RESULT BELOW Name: JESSICA RESENDEZ : [address]: Dashawn Melvin DO Acct: [id number] Unit: [id number] AGE: 73 Location: [facility] Re10/12/18 SEX: F Status: DEP REF SPEC: [id number] FAITH: 10/12/18-[address] [facility] [address]: Dashawn Melvin DO REQ: [id number] RECD: 10/12/181216 STATUS: ABDIRAHMAN FERNANDEZ DR: Reji Dale MD _ ORDERED: LEVEL 4 COMMENTS: [id number] FINAL DIAGNOSIS Colon, cecum, biopsy: -- Tubular [...] END OF REPORT DEPARTMENT OF PATHOLOGY, [address] [place] [address] Doni Rivero M.D. Director [facility] # [id number] consistent w/ previous results 26 consistent w/ previous results 27 NON-FASTING 28 RESULTS VERIFIED BY REPEAT ANALYSIS 29 RESULTS VERIFIED BY REPEAT ANALYSIS 30 RESULTS VERIFIED BY REPEAT ANALYSIS 31 RESULTS VERIFIED BY REPEAT ANALYSIS 32 RESULTS VERIFIED BY REPEAT ANALYSIS 33 SEE RESULT BELOW Name: JESSICA RESENDEZ : [address]: Lolita Mckenna NP Acct: [id number] Unit: [id number] AGE: 73 Location: [facility] Re10/08/18 SEX: F Status: REG REF SPEC: [id number] FAITH: 10/08/[address] [facility] [address]: Lolita Mckenna [employer] REQ: [id number] RECD: 10/08/18 STATUS: COMP _ SOURCE: URINE SPDESC: ORDERED: Urine Culture COMMENTS: 1 argueta urine [facility] [id number] Urine Source: Random Procedure Result Reported Site Urine Culture Final 10/09/18- 1738 ML No growth of clinically significant organisms * ML - Main Lab . END OF REPORT DEPARTMENT OF PATHOLOGY, [address] [place] [address] Doni Rivero M.D. Director [facility] # [id number] 34 Because ethnic data is not always readily available, this report includes an eGFR for both -Americans and non- Americans. The National Kidney Disease Education Program (NKDEP) does not endorse the use of the MDRD equation for patients that are not between the ages of 18 and 70, are , have extremes of body size, muscle mass, or nutritional status, or are non- or non-. According to the National Kidney Foundation, irrespective of diagnosis, the stage of the disease is based on the level of kidney function: Stage Description GFR(mL/min/1.73 m(2)) 1 Kidney damage with normal or decreased GFR 90 2 Kidney damage with mild decrease in GFR 60-89 3 Moderate decrease in GFR 30-59 4 Severe decrease in GFR 15-29 5 Kidney failure <15 (or dialysis) 35 Troponin-I testing on Plasma Separator Tubes (PST) has a known false positive rate of 0.20-0.40%. All positive troponins reflex immediately to secondary confirmatory testing. Using the [employer] DxI 800 Access Immunoassay systems, the 99th percentile upper reference limit was demonstrated to be < 0.03 ng/mL. 36 SEE RESULT BELOW Name: JESSICA RESENDEZ : [address]: Fabby Scott MD Acct: [id number] Unit: [id number] AGE: 73 Location: ED Re08/11/18 SEX: F Status: DEP ER SPEC: [id number] FAITH: 08/11/[address]: Bassam ROGERS REQ: [id number] RECD: 08/11/18 STATUS: CANDIS FERNANDEZ DR: Reji Dale MD _ [facility]: Urine Culture Procedure Result Reported Site Urine Culture Final 08/14/18845 ML Organism 1 ESCHERICHIA COLI [place] Count >100,000 (Many) CFU/ML Organism 2 ENTEROCOCCUS FAECALIS [place] Count 75-100,000 (Many) CFU/ML 1. ESCHERICHIA COLI M.I.C. RX --------- ------ Ampicillin <=2 S Cefazolin <=4 S Cefepime <=1 S Ceftriaxone <=1 S Ciprofloxacin <=0.25 S Gentamicin <=1 S Levofloxacin <=0.12 S Meropenem <=0.25 S Nitrofurantoin <=16 S Tetracycline <=1 S Pipercillin/Tazobactam <=4 S Trimethoprim/Sulfamethoxazole <=20 S Amoxicillin/Clavulanic Acid <=2 S Aztreonam <=1 S 2. ENTEROCOCCUS FAECALIS M.I.C. RX --------- ------ Ampicillin <=2 S Penicillin 2 S Ciprofloxacin 1 S Gentamicin High Level S CONTINUED ON NEXT PAGE DEPARTMENT OF PATHOLOGY, [address] [place] [address] Doni Rivero M.D. Director [facility] # [id number] Patient: JESSICA RESENDEZ [id number] (Continued) Specimen: [id number] Collected: 08/11/18 Received: 08/11/18 (Continued) Procedure Result Reported Site Urine Culture Final (continued) 08/14/18845 2. ENTEROCOCCUS FAECALIS (continued) M.I.C. RX --------- ------ Levofloxacin 1 S Linezolid 2 S Nitrofurantoin <=16 S * Quinupristin/Dalfopristin 4 R * Streptomycin High Level S Tetracycline >=16 R Tigecycline <=0.12 S Vancomycin 1 S Imipenem-Deduced S * Ampicillin/Sulbactam-Deduced S * These antibiotics are not available in the [facility] Formulary Contact the Microbiology Department for any additional antibiotic reporting. Contact the Microbiology Department for any additional antibiotic reporting. * - Main Lab . END OF REPORT DEPARTMENT OF PATHOLOGY, [address] [place] [address] Doni Rivero M.D. Director [facility] # [id number] Procedures Date Code Description Status 11/25/2018 [id number] Mammogram Completed 10/12/2018 [id number] Colonoscopy Completed 10/20/2017 [id number] Mammogram Completed 10/17/2016 [id number] Mammogram Completed 09/27/2015 [id number] Mammogram Completed 09/25/2014 [id number] Mammogram Completed 03/28/2014 [id number] Colonoscopy Completed 09/09/2013 [id number] Mammogram Completed 06/21/2012 [id number] Mammogram Completed 08/16/2010 [id number] Mammogram Completed 08/10/2009 [id number] Mammogram Completed 02/08/2009 51756430 Mammogram Completed 01/19/2009 76016350 Mammogram Completed 01/14/2008 [id number] Mammogram Completed 08/05/2007 [id number] Mammogram Completed 01/22/2007 [id number] Mammogram Completed 02/23/2004 [id number] Colonoscopy Completed 12/20/2003 [id number] Bone Mineral Density Test Completed Medical Devices Description No Information Available Encounters Type Date Location Provider Dx Diagnosis Office Visit 12/13/2018 Main Office Reji Rico N13.0 Hydronephrosis with 11:20a Leeann Dale ureteropelvic junction obstruction D64.9 Anemia, unspecified C18.7 Malignant neoplasm of sigmoid colon E03.9 Hypothyroidism, unspecified F41.9 Anxiety disorder, unspecified F20.9 Schizophrenia, unspecified Office Visit 11/12/2018 10:45a Main Office KARLENE May R11.2 Nausea with vomiting, unspecified K59.09 Other constipation Office Visit 11/05/2018 1:00p Main Office Saloni Cooper R11.2 Nausea with [employer] vomiting, unspecified Office Visit 10/18/2018 3:00p Main Office Reji Rico R10.30 Lower abdominal Leeann Dale pain, unspecified N19 Unspecified kidney failure Office Visit 10/11/2018 3:00p Main Office Reji Dale R94.4 Abnormal results Leeann of kidney function studies R10.30 Lower abdominal pain, unspecified Office Visit 10/08/2018 9:00a Main Office ESTHER LindseyP R11.0 Nausea R10.32 Left lower quadrant pain R10.31 Right lower quadrant pain K92.1 Melena N13.39 Other hydronephrosis N39.0 Urinary tract infection, site not specified Office Visit 09/01/2018 2:40p Main Office Reji Dale, C18.7 Malignant neoplasm M.DAlice of sigmoid colon E03.9 Hypothyroidism, unspecified F41.9 Anxiety disorder, unspecified F20.9 Schizophrenia, unspecified Assessments Date Code Description Provider 01/27/2019 R10.30 Lower abdominal pain, unspecified SUE Mcneill 01/27/2019 N39.0 Urinary tract infection, site not specified SUE Mcneill 12/13/2018 N13.0 Hydronephrosis with ureteropelvic junction Reji Dale M.D. obstruction 12/13/2018 D64.9 Anemia, unspecified Reji Dale M.D. 12/13/2018 C18.7 Malignant neoplasm of sigmoid colon Reji Dale M.D. 12/13/2018 E03.9 Hypothyroidism, unspecified Reji Dale M.D. 12/13/2018 F41.9 Anxiety disorder, unspecified Reji Dale M.D. 12/13/2018 F20.9 Schizophrenia, unspecified Reji Dale M.D. 12/09/2018 N13.0 Hydronephrosis with ureteropelvic junction Reji Dale M.D. obstruction 12/09/2018 D64.9 Anemia, unspecified Reji Dale M.D. 11/12/2018 R11.2 Nausea with vomiting, unspecified Saloni Kenneth, [facility] 11/12/2018 K59.09 Other constipation Saloni Kenneth, [facility] 11/05/2018 R11.2 Nausea with vomiting, unspecified Saloni Kenneth, [facility] 10/18/2018 R10.30 Lower abdominal pain, unspecified Reji Dale M.D. 10/18/2018 N19 Unspecified kidney failure Reji Dale M.D. 10/11/2018 R94.4 Abnormal results of kidney function studies Reji Dale M.D. 10/11/2018 R10.30 Lower abdominal pain, unspecified Reji Dale M.D. 10/08/2018 R11.0 Nausea Lolita Mckenna, [facility] 10/08/2018 R10.32 Left lower quadrant pain Lolita Mckenna, [facility] 10/08/2018 R10.31 Right lower quadrant pain Lolita Mckenna, [facility] 10/08/2018 K92.1 Melena Lolita Mckenna, [facility] 10/08/2018 N13.39 Other hydronephrosis Lolita Mckenna, [facility] 10/08/2018 N39.0 Urinary tract infection, site not specified Lolita Mckenna, [facility] 09/01/2018 C18.7 Malignant neoplasm of sigmoid colon Reji Dale M.D. 09/01/2018 E03.9 Hypothyroidism, unspecified Reji Dale M.D. 09/01/2018 F41.9 Anxiety disorder, unspecified Reji Dale M.D. 09/01/2018 F20.9 Schizophrenia, unspecified Reji Dale M.D. Plan of Treatment Future Appointment(s):03/07/2019 3:00 pm - Reji Dale M.D. at Main Bzjdhu1201/27/2019 - Taylor Nichole, PAR10.30 Lower abdominal pain, unspecifiedComments:Continue to use MiralaxEmergency room for any intense pain, bloating, or you stop passing stools.N39.0 Urinary tract infection, site not specifiedNew Labs:Urine Culture And Sensitivities, Ordered: 01/27/19Comments: Start antibiotic as prescribed by Dr. Felton. You will be receiving a phone call in regards to followup with Dr. Felton.AllComments:PCMHMedication Management Patient Understands medications he's taking? Yes Are there Barriers to Adherence? No Has the patient been asked about herbal supplements and therapies, and OTC meds? Yes Care Plan1. Patient has been queried about patient's goals/preferences and functional/lifestyle goals at relevant visits. Yes If relevant, describe: N/A2. Treatment goals as explained to the patient: above3. Are there barriers to meeting treatment goals? No If Yes , please describe:4. Self-Management goals as described to the patient: Yes As always, we strongly encourage a healthy diet and making physical activity a part of your every day life. If you have questions about how or where to start, please contact the office. Functional Status Description No Information Available Mental Status Description No Information Available Referrals Refer to Reason for Referral Status Appt Date Ramon Felton Consult and treat. LT Created [address] [place] [address] [place] [address] [phone]
[2019-02-04] MEDS: ARIPiprazole TAB* 15 MG PO SCH (18:26)
[2019-02-04] MEDS: NS 0.9% 1000 ML** 1,000 ML IV SCH (18:26)
[2019-02-04 18:55] LABS: C Reactive Protein 35.94 mg/L (<8.01)
[2019-02-04] MEDS: Heparin VIAL(*) 5000 UNITS/ML VIAL (FIVE THOUSAND) SUBCUT SCH (21:55)
[2019-02-04] MEDS: OLANzapine TAB* 10 MG PO SCH (21:55)
[2019-02-04] MEDS: Ondansetron INJ* 2 MG/ML VIAL IV PRN (21:58)
[2019-02-05] MEDS: Ondansetron INJ* 2 MG/ML VIAL IV PRN ×2 (03:24→17:12)
[2019-02-05] MEDS: NS 0.9% 1000 ML** 1,000 ML IV SCH ×3 (03:25→18:16)
[2019-02-05] MEDS: Heparin VIAL(*) 5000 UNITS/ML VIAL (FIVE THOUSAND) SUBCUT SCH ×3 (06:38→21:05)
[2019-02-05] MEDS: Levothyroxine TAB* 88 MCG TAB PO SCH (06:39)
[2019-02-05 06:51] LABS: ABS Basophils 0.1 10^3/ul (0-0.2); ABS Eosinophils 0.1 10^3/ul (0-0.6); ABS Lymphocytes 0.6 10^3/ul (1.0-4.8); ABS Monocytes 0.7 10^3/ul (0-0.8); ABS Neutrophils 7.5 10^3/ul (1.5-7.7); Eosinophil % 0.8 %; Hematocrit 24 % (35-47); Hemoglobin 8.4 g/dL (12.0-16.0); Lymphocyte % 6.9 %; Mean Corpuscular HGB Conc 35 g/dL (31-36); Mean Corpuscular Hemoglobin 30 pg (27-31); Mean Corpuscular Volume 86 fL (80-97); Mean Platelet Volume 6.6 fL (7.4-10.4); Platelet Count 277 10^3/uL (150-450); Red Blood Count 2.79 10^6 /uL (3.70-4.87); Red Cell Distribution Width 15 % (10-15); White Blood Count 8.9 10^3/uL (3.5-10.8)
[2019-02-05 07:05] LABS: Albumin/Globulin Ratio 0.8 (1-3); BUN/Creatinine Ratio 19.1 (8-20); Calcium 8.3 mg/dL (8.6-10.3); EGFR African American 14.1 (>60); EGFR Non-African American 11.6 (>60); Globulin 3.8 g/dL (2-4); Potassium 4.6 mmol/L (3.5-5.0); Total Bilirubin 0.3 mg/dL (0.2-1.0); Total Protein 6.8 g/dL (6.4-8.9)
[2019-02-05] MEDS: OLANzapine TAB* 10 MG PO SCH ×2 (08:31→21:05)
[2019-02-05] MEDS: Pantoprazole TAB * 40 MG TAB PO SCH (08:31)
[2019-02-05] MEDS: cefTRIAXone(*) 1 GM in NS 0.9% 50 ML* 50 ML IVPB SCH (10:18)
--- NOTE | 2019-02-05 11:17 | PN ---
Progress Note - Progress Note Date of Service: 02/05/19 SOAP: Subjective: [Patient was admitted yesterday with CASIMIRO. CT completed last night shows bilateral hydroureteronephrosis with bilateral stents in place. No obvious retroperitoneal LAD or other suspicious masses. UA from yesterday is suspicious for infection and urine cx 01/27 grew 10-25K colonies of EColi. She remains afebrile and reports feeling relatively well today. Moving her bowels. No new complaints. Eating ok.] Objective: [ Vital Signs: Temp Pulse Resp BP Pulse Ox 98.5 F 85 18 133/70 98 02/05/19 07:27 02/05/19 07:27 02/05/19 08:00 02/05/19 07:27 02/05/19 07:27 Acetaminophen (Tylenol Tab*) 650 mg PO Q4H PRN PRN Reason: PAIN - MILD OR TEMP>100.4 Aripiprazole (Abilify Tab*) 15 mg PO QPM [facility] Last Admin: 02/04/19 18:26 Dose: 15 mg Heparin Sodium (Porcine) (Heparin Vial(*)) 5,000 units SUBCUT Q8HR [facility] Last Admin: 02/05/19 06:38 Dose: Not Given Sodium Chloride (Ns 0.9% 1000 Ml) 1,000 mls @ 150 mls/hr IV PER RATE [facility] Last Admin: 02/05/19 10:18 Dose: 150 mls/hr Ceftriaxone Sodium 1 gm/ (Sodium Chloride) 50 mls @ 100 mls/hr IVPB Q24H [facility] Last Admin: 02/05/19 10:18 Dose: 100 mls/hr Levothyroxine Sodium (Synthroid Tab*) 88 mcg PO DAILY@0600 [facility] Last Admin: 02/05/19 06:39 Dose: 88 mcg Olanzapine (Zyprexa Tab*) 10 mg PO BID [facility] Last Admin: 02/05/19 08:31 Dose: 10 mg Ondansetron HCl (Zofran Inj*) 4 mg IV Q4H PRN PRN Reason: NAUSEA/VOMITING Last Admin: 02/05/19 03:24 Dose: 4 mg Oxycodone/Acetaminophen (Percocet 5/325 Tab*) 1 tab PO Q4H PRN PRN Reason: PAIN - MODERATE Pantoprazole Sodium (Protonix Tab*) 40 mg PO QAM [facility] Last Admin: 02/05/19 08:31 Dose: 40 mg Laboratory Results - last 24 hr 02/04/19 02/04/19 02/05/19 18:25 18:25 05:55 WBC 8.9 RBC 2.79 L Hgb 8.4 L Hct 24 L MCV 86 MCH 30 MCHC 35 RDW 15 Plt Count 277 MPV 6.6 L Neut % (Auto) 84.2 Lymph % (Auto) 6.9 [place] % (Auto) 7.4 Eos % (Auto) 0.8 Baso % (Auto) 0.7 Absolute Neuts (auto) 7.5 Absolute Lymphs (auto) 0.6 L Absolute Monos (auto) 0.7 Absolute Eos (auto) 0.1 Absolute Basos (auto) 0.1 Absolute Nucleated RBC 0.0 Nucleated RBC % 0.0 ESR > 120 H Sodium Potassium Chloride Carbon Dioxide Anion Gap BUN Creatinine Est GFR ( Amer) Est GFR (Non-Af Amer) BUN/Creatinine Ratio Glucose Calcium Total Bilirubin AST ALT Alkaline Phosphatase Lactate Dehydrogenase 145 C-Reactive Protein 35.94 H Total Protein Albumin Globulin Albumin/Globulin Ratio Rheumatoid Factor 13 02/05/19 05:55 WBC RBC Hgb Hct MCV MCH MCHC RDW Plt Count MPV Neut % (Auto) Lymph % (Auto) [place] % (Auto) Eos % (Auto) Baso % (Auto) Absolute Neuts (auto) Absolute Lymphs (auto) Absolute Monos (auto) Absolute Eos (auto) Absolute Basos (auto) Absolute Nucleated RBC Nucleated RBC % ESR Sodium 139 Potassium 4.6 Chloride 114 H Carbon Dioxide 16 L Anion Gap 9 BUN 73 H Creatinine 3.82 H Est GFR ( Amer) 14.1 Est GFR (Non-Af Amer) 11.6 BUN/Creatinine Ratio 19.1 Glucose 93 Calcium 8.3 L Total Bilirubin 0.30 AST 9 L ALT 8 Alkaline Phosphatase 64 Lactate Dehydrogenase C-Reactive Protein Total Protein 6.8 Albumin 3.0 L Globulin 3.8 Albumin/Globulin Ratio 0.8 L Rheumatoid Factor Exam: Gen: Relatively well appearing 73 yo female in NAD HEENT: MMM CV: RRR, no m/r/g Resp: CTA, no w/c/r Abd: somewhat distended, nonTTP Ext: no edema] Assessment: [This is a 73 yo female with h/o rectal CA who developed bilateral hydroureteronephrosis earlier this year treated with bilateral ureteral stent placement. She was admitted in November with CASIMIRO and evidence of UTI at which point her stents were exchanged and Cr improved to 1.7. She subsequently developed rising Cr and worsening anemia. Repeat CT scan shows persistent bilateral hydroureteronephrosis with no obvious source of external impingement. She likely has developed recurrent urinary infection which has caused stent obstruction.] Plan: [1. CASIMIRO secondary to bilateral hydroureteronephrosis - empirically start ceftriaxone and await results of repeat urine cx from admission - reviewed case with Dr Felton with plans to exchange stents Thursday (sooner if she develops a fever or Cr begins to climb again) - cont IVF - if Cr does not improve s/p stent exchange will consult nephrology and consider intrinsic renal disease 2. Anemia - s/p 1U PRBCs - likely due to renal insufficiency - appropriate iron stores on labs from last month, will repeat stool testing for occult blood 3. h/o rectal CA - no evidence for recurrent/metastatic disease Dispo: cont inpatient care with planned ureteral stent exchange Thursday with Dr Felton]
[2019-02-05] MEDS: ARIPiprazole TAB* 15 MG PO SCH (18:16)
[2019-02-06] MEDS: NS 0.9% 1000 ML** 1,000 ML IV SCH ×4 (01:23→23:17)
[2019-02-06 06:27] LABS: ABS Eosinophils 0.1 10^3/ul (0-0.6); ABS Lymphocytes 0.8 10^3/ul (1.0-4.8); ABS Monocytes 0.5 10^3/ul (0-0.8); ABS Neutrophils 6.5 10^3/ul (1.5-7.7); Eosinophil % 0.9 %; Hematocrit 25 % (35-47); Hemoglobin 8.4 g/dL (12.0-16.0); Lymphocyte % 9.5 %; Mean Corpuscular HGB Conc 33 g/dL (31-36); Mean Corpuscular Hemoglobin 29 pg (27-31); Mean Corpuscular Volume 87 fL (80-97); Mean Platelet Volume 6.5 fL (7.4-10.4); Platelet Count 260 10^3/uL (150-450); Red Blood Count 2.91 10^6 /uL (3.70-4.87); Red Cell Distribution Width 15 % (10-15)
[2019-02-06 06:40] LABS: Albumin/Globulin Ratio 0.8 (1-3); BUN/Creatinine Ratio 17.2 (8-20); Calcium 8.3 mg/dL (8.6-10.3); EGFR African American 15.1 (>60); EGFR Non-African American 12.5 (>60); Globulin 3.9 g/dL (2-4); Magnesium 1.4 mg/dL (1.9-2.7); Potassium 4.3 mmol/L (3.5-5.0); Total Bilirubin 0.3 mg/dL (0.2-1.0); Total Protein 6.9 g/dL (6.4-8.9)
[2019-02-06] MEDS: Pantoprazole TAB * 40 MG TAB PO SCH (07:37)
[2019-02-06] MEDS: OLANzapine TAB* 10 MG PO SCH ×2 (07:37→22:07)
[2019-02-06] MEDS: Levothyroxine TAB* 88 MCG TAB PO SCH (07:37)
[2019-02-06] MEDS: Heparin VIAL(*) 5000 UNITS/ML VIAL (FIVE THOUSAND) SUBCUT SCH ×3 (07:37→22:07)
[2019-02-06] MEDS ORDERED: Magnesium Sulf 4 GM/100 ML IV* 4,000 MG/100 ML BAG IVPB ONE (09:00)
--- NOTE | 2019-02-06 09:10 | PN ---
Progress Note - Progress Note Date of Service: 02/06/19 SOAP: Subjective: [Feeling well today. Appetite remains good. No nausea. No pain. Remains afebrile.] Objective: [ Vital Signs: Temp Pulse Resp BP Pulse Ox 98.6 F 86 22 131/71 98 02/06/19 03:04 02/06/19 03:04 02/06/19 03:04 02/06/19 03:04 02/06/19 03:04 Laboratory Results - last 24 hr 02/06/19 02/06/19 05:38 05:38 WBC 8.0 RBC 2.91 L Hgb 8.4 L Hct 25 L MCV 87 MCH 29 MCHC 33 RDW 15 Plt Count 260 MPV 6.5 L Neut % (Auto) 82.3 Lymph % (Auto) 9.5 [place] % (Auto) 6.8 Eos % (Auto) 0.9 Baso % (Auto) 0.5 Absolute Neuts (auto) 6.5 Absolute Lymphs (auto) 0.8 L Absolute Monos (auto) 0.5 Absolute Eos (auto) 0.1 Absolute Basos (auto) 0.0 Absolute Nucleated RBC 0.0 Nucleated RBC % 0.0 Sodium 141 Potassium 4.3 Chloride 117 H Carbon Dioxide 17 L Anion Gap 7 BUN 62 H Creatinine 3.60 H Est GFR ( Amer) 15.1 Est GFR (Non-Af Amer) 12.5 BUN/Creatinine Ratio 17.2 Glucose 83 Calcium 8.3 L Magnesium 1.4 L Total Bilirubin 0.30 AST 9 L ALT 9 Alkaline Phosphatase 64 Total Protein 6.9 Albumin 3.0 L Globulin 3.9 Albumin/Globulin Ratio 0.8 L Acetaminophen (Tylenol Tab*) 650 mg PO Q4H PRN PRN Reason: PAIN - MILD OR TEMP>100.4 Aripiprazole (Abilify Tab*) 15 mg PO QPM [facility] Last Admin: 02/05/19 18:16 Dose: 15 mg Heparin Sodium (Porcine) (Heparin Vial(*)) 5,000 units SUBCUT Q8HR [facility] Last Admin: 02/06/19 07:37 Dose: 5,000 units Sodium Chloride (Ns 0.9% 1000 Ml) 1,000 mls @ 150 mls/hr IV PER RATE [facility] Last Admin: 02/06/19 07:37 Dose: 150 mls/hr Ceftriaxone Sodium 1 gm/ (Sodium Chloride) 50 mls @ 100 mls/hr IVPB Q24H [facility] Last Admin: 02/05/19 10:18 Dose: 100 mls/hr Magnesium Sulfate (Magnesium Sulf 4 Gm/100 Ml Iv*) 4,000 mg in 100 mls @ 33.333 mls/hr IVPB ONCE ONE Stop: 02/06/19 11:59 Levothyroxine Sodium (Synthroid Tab*) 88 mcg PO DAILY@0600 [facility] Last Admin: 02/06/19 07:37 Dose: 88 mcg Olanzapine (Zyprexa Tab*) 10 mg PO BID [facility] Last Admin: 02/06/19 07:37 Dose: 10 mg Ondansetron HCl (Zofran Inj*) 4 mg IV Q4H PRN PRN Reason: NAUSEA/VOMITING Last Admin: 02/05/19 17:12 Dose: 4 mg Oxycodone/Acetaminophen (Percocet 5/325 Tab*) 1 tab PO Q4H PRN PRN Reason: PAIN - MODERATE Pantoprazole Sodium (Protonix Tab*) 40 mg PO QAM [facility] Last Admin: 02/06/19 07:37 Dose: 40 mg Exam: Gen: Relatively well appearing 73 yo female in NAD HEENT: MMM CV: RRR, no m/r/g Resp: CTA, no w/c/r Abd: somewhat distended, nonTTP Ext: no edema] Assessment: [This is a 73 yo female with h/o rectal CA who developed bilateral hydroureteronephrosis earlier this year treated with bilateral ureteral stent placement. She was admitted in November with CASIMIRO and evidence of UTI at which point her stents were exchanged and Cr improved to 1.7. She subsequently developed rising Cr and worsening anemia. Repeat CT scan shows persistent bilateral hydroureteronephrosis with no obvious source of external impingement. It seems most likely has developed recurrent urinary infection which has caused stent obstruction, however urine cx is negative this admission. Cr has improved slightly with IVF. Hgb remains stable. ] Plan: [1. CASIMIRO secondary to bilateral hydroureteronephrosis - empirically started ceftriaxone, urine cx from admission is negative although she may have a more proximal infection with distal infection - reviewed case with Dr Felton with plans to exchange stents Thursday - cont IVF - if Cr does not improve s/p stent exchange will consult nephrology and consider intrinsic renal disease 2. Anemia - s/p 1U PRBCs - likely due to renal insufficiency - appropriate iron stores on labs from last month, stool is negative for occult blood 3. h/o rectal CA - no evidence for recurrent/metastatic disease Dispo: cont inpatient care with planned ureteral stent exchange Thursday with Dr Felton (NPO after midnight).]
[2019-02-06] MEDS: cefTRIAXone(*) 1 GM in NS 0.9% 50 ML* 50 ML IVPB SCH (09:43)
[2019-02-06] MEDS: ARIPiprazole TAB* 15 MG PO SCH (17:40)
[2019-02-07] MEDS: Heparin VIAL(*) 5000 UNITS/ML VIAL (FIVE THOUSAND) SUBCUT SCH ×3 (05:07→21:28)
[2019-02-07] MEDS: NS 0.9% 1000 ML** 1,000 ML IV SCH (05:51)
[2019-02-07] MEDS: Levothyroxine TAB* 88 MCG TAB PO SCH (05:51)
[2019-02-07 06:57] LABS: ABS Basophils 0.1 10^3/ul (0-0.2); ABS Eosinophils 0.2 10^3/ul (0-0.6); ABS Lymphocytes 0.6 10^3/ul (1.0-4.8); ABS Monocytes 0.4 10^3/ul (0-0.8); ABS Neutrophils 5.6 10^3/ul (1.5-7.7); Eosinophil % 2.6 %; Hematocrit 24 % (35-47); Hemoglobin 8.1 g/dL (12.0-16.0); Lymphocyte % 8.8 %; Mean Corpuscular HGB Conc 34 g/dL (31-36); Mean Corpuscular Hemoglobin 29 pg (27-31); Mean Corpuscular Volume 87 fL (80-97); Mean Platelet Volume 6.3 fL (7.4-10.4); Platelet Count 243 10^3/uL (150-450); Red Blood Count 2.75 10^6 /uL (3.70-4.87); Red Cell Distribution Width 16 % (10-15); White Blood Count 6.8 10^3/uL (3.5-10.8)
[2019-02-07 07:23] LABS: BUN/Creatinine Ratio 16.3 (8-20); Calcium 8.4 mg/dL (8.6-10.3); EGFR African American 16.6 (>60); EGFR Non-African American 13.7 (>60); Magnesium 2.3 mg/dL (1.9-2.7); Potassium 4.8 mmol/L (3.5-5.0)
[2019-02-07] MEDS ORDERED: Dexamethasone IV* 4 MG/ML 1 ML (4 MG) IV SLOW PU ONE (07:28)
[2019-02-07] MEDS ORDERED: Buffered Lidocaine 1% SYRIN* 1 ML/SYRINGE INTRADERM ONE (07:28)
[2019-02-07] MEDS ORDERED: fentaNYL* 50 MCG/ML 2 ML VIAL (100 MCG VIAL) ONE (07:57)
[2019-02-07] MEDS ORDERED: Midazolam* 1 MG/ML 2 ML VIAL (2 MG) ONE (07:57)
[2019-02-07] MEDS ORDERED: Lidocaine 2% PF * 5 ML VIAL ONE (07:58)
[2019-02-07] MEDS ORDERED: Propofol* 10 MG/ML 20 ML BTL ONE (08:02)
[2019-02-07] MEDS ORDERED: Iohexol 180 (CONTRAST) 10 ML SDV IV ONE (08:15)
[2019-02-07] MEDS ORDERED: Dexamethasone IV* 4 MG/ML 1 ML (4 MG) ONE (08:26)
[2019-02-07] MEDS ORDERED: cefTRIAXone(*) 1 GM ADVAN/BAG ONE ×2 (08:26→09:09)
[2019-02-07] MEDS ORDERED: fentaNYL* 50 MCG/ML 2 ML VIAL (100 MCG VIAL) IV PRN (08:35)
[2019-02-07] MEDS ORDERED: Naloxone* 0.4 MG/ML 1 ML VIAL IV PRN (08:35)
[2019-02-07] MEDS ORDERED: DiMENhydriNATE IV* 50 MG/ML VIAL IV PUSH PRN (08:35)
[2019-02-07] MEDS: Lactated Ringers 1000 ML Bag* 1,000 ML IV SCH ×3 (08:36→21:29)
[2019-02-07] MEDS ORDERED: Chloroprocaine 2%* 20 ML VIAL ONE (09:05)
--- NOTE | 2019-02-07 11:11 | PN ---
Progress Note - Progress Note Date of Service: 02/07/19 SOAP: Subjective: []Returned from OR ~ 1115, feeling well. Mild upset stomach, "I think its because I haven't eaten." Curious if she goes home tomorrow if she'll be able to work Wed. 02/09 Medications: Acetaminophen (Tylenol Tab*) 650 mg PO Q4H PRN PRN Reason: PAIN - MILD OR TEMP>100.4 Aripiprazole (Abilify Tab*) 15 mg PO QPM [facility] Last Admin: 02/06/19 17:40 Dose: 15 mg Dimenhydrinate (Dramamine Iv*) 25 mg IV PUSH ONCE PRN PRN Reason: NAUSEA/VOMITING Fentanyl Citrate (Fentanyl*) 25 mcg IV Q2M PRN PRN Reason: PAIN - MODERATE Heparin Sodium (Porcine) (Heparin Vial(*)) 5,000 units SUBCUT Q8HR [facility] Last Admin: 02/07/19 05:07 Dose: Not Given Sodium Chloride (Ns 0.9% 1000 Ml) 1,000 mls @ 150 mls/hr IV PER RATE [facility] Last Admin: 02/07/19 05:51 Dose: 150 mls/hr Ceftriaxone Sodium 1 gm/ (Sodium Chloride) 50 mls @ 100 mls/hr IVPB Q24H [facility] Last Admin: 02/06/19 09:43 Dose: 100 mls/hr Lactated Ringer's (Lactated Ringers 1000 Ml Bag*) 1,000 mls @ 125 mls/hr IV PER RATE [facility] Last Admin: 02/07/19 08:36 Dose: 125 mls/hr Levothyroxine Sodium (Synthroid Tab*) 88 mcg PO DAILY@0600 [facility] Last Admin: 02/07/19 05:51 Dose: 88 mcg Naloxone HCl (Narcan*) 0.08 mg IV Q2M PRN PRN Reason: severe induced resp depression Olanzapine (Zyprexa Tab*) 10 mg PO BID [facility] Last Admin: 02/06/19 22:07 Dose: 10 mg Ondansetron HCl (Zofran Inj*) 4 mg IV Q4H PRN PRN Reason: NAUSEA/VOMITING Last Admin: 02/05/19 17:12 Dose: 4 mg Oxycodone/Acetaminophen (Percocet 5/325 Tab*) 1 tab PO Q4H PRN PRN Reason: PAIN - MODERATE Pantoprazole Sodium (Protonix Tab*) 40 mg PO QAM [facility] Last Admin: 02/06/19 07:37 Dose: 40 mg Objective: [] Vital Signs Temp Pulse Resp BP Pulse Ox 98.8 F 99 14 141/71 100 02/07/19 09:36 02/07/19 09:40 02/07/19 09:40 02/07/19 09:40 02/07/19 09:40 A&Ox3, EOMI, neuro grossly non-focal HRR, S1S2 LS clear +BS, abd round and soft Laboratory Results - last 24 hr 02/07/19 02/07/19 06:17 06:33 WBC 6.8 RBC 2.75 L Hgb 8.1 L Hct 24 L MCV 87 MCH 29 MCHC 34 RDW 16 H Plt Count 243 MPV 6.3 L Neut % (Auto) 81.5 Lymph % (Auto) 8.8 [place] % (Auto) 6.2 Eos % (Auto) 2.6 Baso % (Auto) 0.9 Absolute Neuts (auto) 5.6 Absolute Lymphs (auto) 0.6 L Absolute Monos (auto) 0.4 Absolute Eos (auto) 0.2 Absolute Basos (auto) 0.1 Absolute Nucleated RBC 0.0 Nucleated RBC % 0.0 Sodium 143 Potassium 4.8 Chloride 120 H Carbon Dioxide 16 L Anion Gap 7 BUN 54 H Creatinine 3.31 H Est GFR ( Amer) 16.6 Est GFR (Non-Af Amer) 13.7 BUN/Creatinine Ratio 16.3 Glucose 83 Calcium 8.4 L Magnesium 2.3 Assessment: []73 yo female with h/o rectal CA who developed bilateral hydroureteronephrosis earlier this year treated with bilateral ureteral stent placement. Admitted with rising Cr that has improvement with hydration, now s/p stents exchange this AM. Plan: []1. CASIIMRO secondary to bilateral hydroureteronephrosis - empirically started ceftriaxone, cont. for now - s/p stent exhanged with Dr Felton this AM - cont IVF - if Cr does not improve s/p stent exchange will consult nephrology and consider intrinsic renal disease 2. Anemia - s/p 1U PRBCs as outpatient day of admission - likely due to renal insufficiency 3. h/o rectal CA - no evidence for recurrent/metastatic disease 4. Elevated inflammatory markers - suspect reactive, repeat in AM - HANS and beta-2 microglobulin pending Dispo: s/p stent placement, recheck labs in AM and if stable d/c home
[2019-02-07] MEDS: OLANzapine TAB* 10 MG PO SCH ×2 (11:33→20:28)
[2019-02-07] MEDS: Pantoprazole TAB * 40 MG TAB PO SCH (11:35)
--- NOTE | 2019-02-07 11:36 | OP ---
CC: Dr. Dumont; Dr. Dale OPERATIVE REPORT: DATE OF OPERATION: 02/07/19 DATE OF : 49 SURGEON: Dr. Felton. PRE-OP DIAGNOSIS: Bilateral hydronephrosis. POST-OP DIAGNOSIS: Bilateral hydronephrosis. OPERATIVE PROCEDURES: 1. Cystoscopy. 2. Bilateral retrograde pyelogram. 3. Bilateral ureteral balloon dilatation. 4. Bilateral ureteral stent change. STENTS USED: 1. An 8.5 Cameroonian 22 cm silicone stent right ureter. 2. An 8.5 Cam[place]onian 24 cm silicone stent left ureter. POSTOPERATIVE CONDITION: Stable. INDICATIONS: Kirstin Mcrae is a 73-year-old lady with bilateral hydronephrosis, who has been patricia ged with indwelling stents. She was recently admitted for worsening creatinine and is now being brou ght in for bilateral stent change. DESCRIPTION OF PROCEDURE: After induction of spinal anesthesia, the patient was placed in dorsal lit hotomy position, sequential compression devices were in place and functioning. Initial cystoscopy re vealed a normal-appearing bladder, both the stents were removed. Right retrograde pyelogram revealed right hydronephrosis and proximal hydroureter, balloon dilatation of the distal and mid right ureter was carried out under fluoroscopic monitoring. An 8.5 Cameroonian 22 cm black silicone stent was introduced and positioned in the right ureter with good proximal and dist al positioning obtained. Next, attention was directed to the left ureter. Once again, balloon dilata tion was successfully carried out, and an 8.5 Cameroonian 24 cm black silicone stent was introduced and po sitioned under fluoroscopic monitoring. A Abbott catheter was placed for temporary bladder drainage. The patient tolerated the procedure satisfactorily and was [facility]. [id number]/[facility] #: [id number]
[2019-02-07] MEDS: cefTRIAXone(*) 1 GM in NS 0.9% 50 ML* 50 ML IVPB SCH (11:38)
[2019-02-07] MEDS: ARIPiprazole TAB* 15 MG PO SCH (18:09)
[2019-02-07 20:33] LABS: Beta 2 Microglobulin 10.3 mcg/mL
[2019-02-08] MEDS: Ondansetron INJ* 2 MG/ML VIAL IV PRN ×3 (00:25→08:50)
[2019-02-08] MEDS: Levothyroxine TAB* 88 MCG TAB PO SCH (05:11)
[2019-02-08] MEDS: Heparin VIAL(*) 5000 UNITS/ML VIAL (FIVE THOUSAND) SUBCUT SCH (05:11)
[2019-02-08] MEDS: Lactated Ringers 1000 ML Bag* 1,000 ML IV SCH (05:35)
[2019-02-08 06:37] LABS: ABS Lymphocytes 0.6 10^3/ul (1.0-4.8); ABS Monocytes 0.9 10^3/ul (0-0.8); ABS Neutrophils 10.9 10^3/ul (1.5-7.7); Eosinophil % 0.3 %; Hematocrit 24 % (35-47); Lymphocyte % 4.6 %; Mean Corpuscular HGB Conc 34 g/dL (31-36); Mean Corpuscular Hemoglobin 29 pg (27-31); Mean Corpuscular Volume 86 fL (80-97); Mean Platelet Volume 6.4 fL (7.4-10.4); Platelet Count 257 10^3/uL (150-450); Red Blood Count 2.75 10^6 /uL (3.70-4.87); Red Cell Distribution Width 15 % (10-15); White Blood Count 12.5 10^3/uL (3.5-10.8)
[2019-02-08 06:57] LABS: Albumin 2.9 g/dL (3.2-5.2); Albumin/Globulin Ratio 0.7 (1-3); BUN/Creatinine Ratio 14.6 (8-20); C Reactive Protein 52.04 mg/L (<8.01); Calcium 8.2 mg/dL (8.6-10.3); EGFR African American 15.2 (>60); EGFR Non-African American 12.6 (>60); Globulin 3.9 g/dL (2-4); Potassium 4.4 mmol/L (3.5-5.0); Total Bilirubin 0.2 mg/dL (0.2-1.0); Total Protein 6.8 g/dL (6.4-8.9)
[2019-02-08] MEDS: Pantoprazole TAB * 40 MG TAB PO SCH (08:50)
[2019-02-08] MEDS ORDERED: OLANzapine TAB* 5 MG PO SCH (09:00)
[2019-02-08 09:05] LABS: Erythrocyte Sed Rate > 120 mm/Hr (0-29)
[2019-02-08] MEDS: cefTRIAXone(*) 1 GM in NS 0.9% 50 ML* 50 ML IVPB SCH (10:14)
[2019-02-08 11:52] VITALS: BP 155/80
--- NOTE | 2019-02-09 13:28 | DS ---
CC: Dr. Dale; Dr. Felton * DISCHARGE SUMMARY: DATE OF ADMISSION: 02/04/19 DATE OF DISCHARGE: 02/08/19 PRIMARY CARE PROVIDER: Dr. Dale. UROLOGIST: Dr. Felton. PRIMARY ONCOLOGIST AND ATTENDING PHYSICIAN: Dr. Vikram Dumont.* (DICTATED BY SUE VERDIN) DISCHARGING PROVIDER: SUE Verdin PRIMARY DISCHARGE DIAGNOSES: 1. 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 2. Normocytic anemia likely secondary to renal insufficiency, status post 1 unit of packed red blood cells during this hospitalization and discharged with a hemoglobin of 8.0. 3. History of rectal cancer with no evidence for recurrent disease at this time. DISCHARGE MEDICATIONS: 1. Abilify 15 mg p.o. daily. 2. Meclizine 25 mg p.o. twice daily as needed for dizziness. 3. Zyprexa 10 mg p.o. twice daily. 4. Omeprazole 20 mg p.o. daily. 5. Zofran 4 mg p.o. q.6 hours as needed for nausea and vomiting. 6. MiraLAX 17 g p.o. daily as needed for constipation. 7. Acetaminophen 650 mg p.o. q.6 hours as needed for pain or fever. 8. Ferrous sulfate 325 mg p.o. twice daily. 9. Levothyroxine 88 mcg p.o. daily. 10. Magnesium oxide 400 mg p.o. twice daily. HOSPITAL IMAGIN. CT chest, abdomen and pelvis, 02/04/19, shows no recurrent or metastatic disease, evidence of constipation and persistent hydroureteronephrosis with stable indwelling double-J ureteral stents in place. 2. Retrograde pyelogram, 02/07/19, shows appropriately placed ureteral stents. HOSPITAL COURSE: This is a 73-year-old female with a remote history of rectal cancer followed by Dr. Vikram Dumont, presented to the oncology office for routine followup, found to have worsening anemia and acute renal insufficiency and was subsequently referred for admission to the hospital. The patient had a similar presentation in November of this year, at which point, she was found to have an active urinary tract infection in the setting of bilateral ureteral stents which had been placed earlier this year for bilateral ureteral obstruction that was thought to be secondary to fibrosis likely a result of her prior pelvic radiation from her rectal cancer. Her ureteral stents had been exchanged in November and her creatinine had improved from a peak of approximately 3.8 down to 1.72 the date of discharge and was found to be back up to 4.03 on the date of this hospital admission. The patient underwent CT chest, abdomen and pelvis to evaluate for possibility of recurrent metastatic disease, but there is no evidence of active malignancy or extrinsic compression, but there was evidence for persistence hydroureteronephrosis. The patient was empirically treated with ceftriaxone for a possible urinary tract infection, but urine cultures remained negative. The patient was seen by Dr. Felton who exchanged her ureteral stents on the day prior to discharge, which she tolerated well. Her creatinine was 3.57 at the time of discharge. Regarding her anemia, hemoglobin was 7.5 at the time of admission at which point she received 1 unit of packed red blood cells with improvement to 8.4 and was discharged with a hemoglobin of 8.0. Her stool was found to be Hemoccult negative. Her erythropoietin was inappropriately normal and had normal iron studies. Review of recent labs shows that hemoglobin was greater than 10 dating back to June and July of this year. Interestingly, the patient's inflammatory markers were significantly elevated with a sed rate of greater than 120 measured on 2 occasions with a C-reactive protein initially measured at 35 and on followup was 52. There are no signs for active infection during this hospitalization. Her HANS and rheumatoid factors were within normal limits. Beta-2 microglobulin was moderately elevated to 10.3 with a normal SPEP showing a polyclonal hyperglobulinemia, also consistent with an inflammatory process. DISPOSITION AND FOLLOWUP PLAN: The patient is being discharged from the hospital in stable condition. No indication for continuing antibiotics at the time of discharge. She will be seen in followup next week, at which point, labs will be repeated. If her renal function is not improved after the stent exchange, then we will consider intrinsic renal disease and refer to Nephrology with a possible need for a renal biopsy. Further treatment of her anemia will be addressed at the time of followup with Dr. Dumont, but appears most likely secondary to her renal insufficiency and will benefit from Epogen supplementation. CALVIN COCHRAN, SUE [id number]/[facility] #: [id number] [place]
--- NOTE | 2019-02-11 12:51 | PN ---
Progress Note - Progress Note Date of Service: 02/09/19 SOAP: Addendum to Discharge Summary: Patient was discharged to home in stable condition.
== END 2019-02-08 14:00 | disposition home or self-care (01) | DRG 660 ==
LOC: MED 18:12
PROVIDERS: ADMIT Internal Medicine Hematology & Oncology; ATTEND Internal Medicine Hematology & Oncology
PROC: 0T788DZ Dilation of Bilateral Ureters with Intraluminal Device, Via Natural or Artificial Opening Endoscopic (ICD-10-PCS; 2019-02-07)
PROC: BT14ZZZ Fluoroscopy of Kidneys, Ureters and Bladder (ICD-10-PCS; 2019-02-07)
PROC: 0TP98DZ Removal of Intraluminal Device from Ureter, Via Natural or Artificial Opening Endoscopic (ICD-10-PCS; 2019-02-07)
PROC: 30233N1 Transfusion of Nonautologous Red Blood Cells into Peripheral Vein, Percutaneous Approach (ICD-10-PCS; principal; 2019-02-07 09:15)
DX: N17.9 Acute kidney failure, unspecified (principal); T83.89XA Other specified complication of genitourinary prosthetic devices, implants and grafts, initial encounter; N13.4 Hydroureter; D63.1 Anemia in chronic kidney disease; N04.8 Nephrotic syndrome with other morphologic changes; N13.1 Hydronephrosis with ureteral stricture, not elsewhere classified; E03.9 Hypothyroidism, unspecified; N18.9 Chronic kidney disease, unspecified; F20.9 Schizophrenia, unspecified; Z85.048 Personal history of other malignant neoplasm of rectum, rectosigmoid junction, and anus; Z92.3 Personal history of irradiation; Z79.899 Other long term (current) drug therapy; Z79.1 Long term (current) use of non-steroidal anti-inflammatories (NSAID); Z85.3 Personal history of malignant neoplasm of breast
CPT/HCPCS: 36415; 36430; 71250; 74176; 74420; 80048; 80053; 81003; 81015; 82164; 82232; 82272; 82668; 83615; 83735; 85025; 85652; 86038; 86140; 86431; 86850; 86900; 86901; 86922; 87086; 96361; 99215; 99223; 99232; 99233; 99239; A9270-GY; C1876; C2617; G0463; J0696; J1100; J1644; J2250; J2400; J2405; J2704; J3010; J3475; P9040

== ENCOUNTER 2019-03-04 13:08 | Inpatient (IN) | payer MEDICARE, MEDICAID ==
[2019-03-04] MEDS ORDERED: Morphine INJ* 2 MG/ML 1 ML SYRINGE (TWO MG - NEW SYRINGE VERSION) IV PRN (13:46)
[2019-03-04] MEDS ORDERED: Acetaminophen TAB* 325 MG PO PRN (13:51)
[2019-03-04] MEDS ORDERED: Ondansetron TAB* 4 MG PO PRN (13:52)
[2019-03-04 14:56] LABS: Mean Platelet Volume 6.3 fL (7.4-10.4); Platelet Count 266 10^3/uL (150-450)
[2019-03-04 15:02] LABS: Urine Appearance Clear; Urine Bacteria 1+ (Absent); Urine Bilirubin Negative (Negative); Urine Blood 2+ (Negative); Urine Color Straw; Urine Glucose Negative (Negative); Urine Ketones Negative (Negative); Urine Nitrite Negative (Negative); Urine Protein Negative (Negative); Urine Red Blood Cell 1+(3-5/hpf) (Absent); Urine Specific Gravity 1.008 (1.010-1.030); Urine Squamous Epithelial Cell Present (Absent); Urine Urobilinogen Negative (Negative); Urine White Blood Cell 3+(>20/hpf) (Absent)
[2019-03-04 15:11] LABS: INR 1.17 (0.82-1.09)
[2019-03-04] MEDS: NS 0.9% 1000 ML** 1,000 ML IV SCH (15:19)
[2019-03-04] MEDS ORDERED: Ciprofloxacin 400MG IVPREMIX(* 400 MG/200 ML BAG IVPB ONE (16:00)
[2019-03-04] MEDS ORDERED: fentaNYL* 50 MCG/ML 2 ML VIAL (100 MCG VIAL) ONE (17:36)
[2019-03-04] MEDS ORDERED: Naloxone* 0.4 MG/ML 1 ML VIAL ONE (17:36)
[2019-03-04] MEDS: Heparin VIAL(*) 5000 UNITS/ML VIAL (FIVE THOUSAND) SUBCUT SCH (21:17)
[2019-03-04] MEDS: Magnesium Oxide TAB* 400 MG PO SCH (21:18)
[2019-03-04] MEDS: OLANzapine TAB* 10 MG PO SCH (21:18)
[2019-03-04] MEDS: Senna TAB 8.6 mg* TAB PO SCH (21:18)
[2019-03-04] MEDS: ARIPiprazole TAB* 15 MG PO SCH (21:55)
[2019-03-05 05:22] LABS: ABS Basophils 0.1 10^3/ul (0-0.2); ABS Eosinophils 0.1 10^3/ul (0-0.6); ABS Lymphocytes 0.5 10^3/ul (1.0-4.8); ABS Monocytes 0.4 10^3/ul (0-0.8); Eosinophil % 1.5 %; Hematocrit 25 % (35-47); Hemoglobin 8.3 g/dL (12.0-16.0); Lymphocyte % 8.4 %; Mean Corpuscular HGB Conc 34 g/dL (31-36); Mean Corpuscular Hemoglobin 29 pg (27-31); Mean Corpuscular Volume 87 fL (80-97); Mean Platelet Volume 6.2 fL (7.4-10.4); Nucleated Red Blood Cells % 0.1; Platelet Count 231 10^3/uL (150-450); Red Blood Count 2.85 10^6 /uL (3.70-4.87); Red Cell Distribution Width 14 % (10-15); White Blood Count 6.1 10^3/uL (3.5-10.8)
[2019-03-05] MEDS: Levothyroxine TAB* 88 MCG TAB PO SCH (05:34)
[2019-03-05] MEDS: NS 0.9% 1000 ML** 1,000 ML IV SCH ×3 (05:40→17:45)
[2019-03-05 05:43] LABS: BUN/Creatinine Ratio 17.3 (8-20); Calcium 8.8 mg/dL (8.6-10.3); EGFR African American 10.7 (>60); EGFR Non-African American 8.8 (>60); Potassium 4.9 mmol/L (3.5-5.0)
[2019-03-05] MEDS ORDERED: NS 0.9% 1000 ML** 1,000 ML IV ONE (08:47)
--- NOTE | 2019-03-05 08:59 | PN ---
Progress Note - Progress Note Date of Service: 03/05/19 SOAP: Subjective: feels bloated and hungry. pain under good control. nephrostomy tubes draining cranberry colored urine Objective: Vital Signs Temp Pulse Resp BP Pulse Ox 97.6 F 82 16 133/74 99 03/05/19 05:18 03/05/19 05:18 03/05/19 05:18 03/05/19 05:18 03/05/19 05:18 sitting on toilet in nad perr eomi op moist cta bl s1s2 nl soft, slightly distended, nontender +bs no le edema nephrostomy dressings clean A+O x3, grossly nonfocal Laboratory Results - last 24 hr 03/04/19 03/04/19 03/04/19 14:35 14:46 14:46 WBC RBC Hgb Hct MCV MCH MCHC RDW Plt Count 266 MPV 6.3 L Neut % (Auto) Lymph % (Auto) [place] % (Auto) Eos % (Auto) Baso % (Auto) Absolute Neuts (auto) Absolute Lymphs (auto) Absolute Monos (auto) Absolute Eos (auto) Absolute Basos (auto) Absolute Nucleated RBC Nucleated RBC % INR (Anticoag Therapy) 1.17 H Sodium Potassium Chloride Carbon Dioxide Anion Gap BUN Creatinine Est GFR ( Amer) Est GFR (Non-Af Amer) BUN/Creatinine Ratio Glucose Calcium Urine Color Straw Urine Appearance Clear Urine pH 6.0 Ur Specific [place] 1.008 L Urine Protein Negative Urine Ketones Negative Urine Blood 2+ A Urine Nitrate Negative Urine Bilirubin Negative Urine Urobilinogen Negative Ur Leukocyte Esterase 3+ A Urine WBC (Auto) 3+(>20/hpf) A Urine RBC (Auto) 1+(3-5/hpf) A Ur Squamous Epith Cells Present A Urine Bacteria 1+ A Urine Glucose Negative 03/05/19 03/05/19 05:08 05:08 WBC 6.1 RBC 2.85 L Hgb 8.3 L Hct 25 L MCV 87 MCH 29 MCHC 34 RDW 14 Plt Count 231 MPV 6.2 L Neut % (Auto) 82.3 Lymph % (Auto) 8.4 [place] % (Auto) 6.7 Eos % (Auto) 1.5 Baso % (Auto) 1.1 Absolute Neuts (auto) 5.0 Absolute Lymphs (auto) 0.5 L Absolute Monos (auto) 0.4 Absolute Eos (auto) 0.1 Absolute Basos (auto) 0.1 Absolute Nucleated RBC 0.0 Nucleated RBC % 0.1 INR (Anticoag Therapy) Sodium 138 Potassium 4.9 Chloride 109 Carbon Dioxide 19 L Anion Gap 10 BUN 84 H Creatinine 4.86 H Est GFR ( Amer) 10.7 Est GFR (Non-Af Amer) 8.8 BUN/Creatinine Ratio 17.3 Glucose 87 Calcium 8.8 Urine Color Urine Appearance Urine pH Ur Specific [place] Urine Protein Urine Ketones Urine Blood Urine Nitrate Urine Bilirubin Urine Urobilinogen Ur Leukocyte Esterase Urine WBC (Auto) Urine RBC (Auto) Ur Squamous Epith Cells Urine Bacteria Urine Glucose Acetaminophen (Tylenol Tab*) 650 mg PO Q6H PRN PRN Reason: PAIN - MILD Aripiprazole (Abilify Tab*) 15 mg PO QPM [facility] Last Admin: 03/04/19 21:55 Dose: Not Given Heparin Sodium (Porcine) (Heparin Vial(*)) 5,000 units SUBCUT Q12HR [facility] Last Admin: 03/04/19 21:17 Dose: 5,000 units Sodium Chloride (Ns 0.9% 1000 Ml) 1,000 mls @ 1,000 mls/hr IV .PER RATE ONE Stop: 03/05/19 09:46 Sodium Chloride (Ns 0.9% 1000 Ml) 1,000 mls @ 150 mls/hr IV PER RATE [facility] Levothyroxine Sodium (Synthroid Tab*) 88 mcg PO DAILY@0600 [facility] Last Admin: 03/05/19 05:34 Dose: 88 mcg Magnesium Oxide (Magox 400 Tab*) 400 mg PO BID [facility] Last Admin: 03/04/19 21:18 Dose: 400 mg Morphine Sulfate (Morphine Inj (Syringe))*) 2 mg IV Q4H PRN PRN Reason: PAIN - MILD Olanzapine (Zyprexa Tab*) 10 mg PO BID [facility] Last Admin: 03/04/19 21:18 Dose: 10 mg Ondansetron HCl (Zofran Tab*) 4 mg PO Q6H PRN PRN Reason: NAUSEA Pantoprazole Sodium (Protonix Tab*) 40 mg PO QAM [facility] Polyethylene Glycol/Electrolytes (Miralax*) 17 gm PO DAILY [facility] Senna (Senokot 8.6 Mg Tab*) 1 tab PO BID [facility] Last Admin: 03/04/19 21:18 Dose: 1 tab Assessment: 73 yo F w remote rectal cancer and relatively recent (over last 5-6 months) bilateral hydronephrosis of unclear etiology with progressive renal failure despite stents, now sp bilateral nephrostomy tubes. Plan: CASIMIRO: acute on chronic renal failure, obstructive uropathy, will likely never return to "normal" given chronicity renal follow up on discharge bolus 1 L now (fell behind on I+Os) and increase fluids to 150 cc/hr check magnesium constipation: start back miralax and senna heparin for DVT prophylaxis renal diet anticipate D/C early next week if kidney function stable/improves and
[2019-03-05] MEDS: Polyethylene Glycol 3350* 17 GM PACKET PO SCH (09:26)
[2019-03-05] MEDS: Heparin VIAL(*) 5000 UNITS/ML VIAL (FIVE THOUSAND) SUBCUT SCH ×2 (09:27→20:34)
[2019-03-05] MEDS: Pantoprazole TAB * 40 MG TAB PO SCH (09:28)
[2019-03-05] MEDS: Magnesium Oxide TAB* 400 MG PO SCH ×2 (09:28→20:33)
[2019-03-05] MEDS: Senna TAB 8.6 mg* TAB PO SCH ×2 (09:28→20:33)
[2019-03-05] MEDS: OLANzapine TAB* 10 MG PO SCH ×2 (09:28→20:33)
[2019-03-05 09:33] LABS: Magnesium 1.7 mg/dL (1.9-2.7)
[2019-03-05] MEDS: ARIPiprazole TAB* 15 MG PO SCH (18:22)
[2019-03-06] MEDS: Levothyroxine TAB* 88 MCG TAB PO SCH (05:17)
[2019-03-06 05:28] LABS: ABS Basophils 0.1 10^3/ul (0-0.2); ABS Eosinophils 0.1 10^3/ul (0-0.6); ABS Lymphocytes 0.7 10^3/ul (1.0-4.8); ABS Monocytes 0.6 10^3/ul (0-0.8); ABS Neutrophils 6.8 10^3/ul (1.5-7.7); Eosinophil % 1.6 %; Hematocrit 24 % (35-47); Hemoglobin 8.2 g/dL (12.0-16.0); Lymphocyte % 8.7 %; Mean Corpuscular HGB Conc 34 g/dL (31-36); Mean Corpuscular Hemoglobin 30 pg (27-31); Mean Corpuscular Volume 86 fL (80-97); Mean Platelet Volume 6.7 fL (7.4-10.4); Platelet Count 233 10^3/uL (150-450); Red Blood Count 2.77 10^6 /uL (3.70-4.87); Red Cell Distribution Width 15 % (10-15); White Blood Count 8.4 10^3/uL (3.5-10.8)
[2019-03-06 05:46] LABS: Calcium 8.2 mg/dL (8.6-10.3); Magnesium 1.6 mg/dL (1.9-2.7); Potassium 4.5 mmol/L (3.5-5.0)
[2019-03-06 05:52] LABS: BUN/Creatinine Ratio 15.7 (8-20); EGFR African American 12.6 (>60); EGFR Non-African American 10.4 (>60)
[2019-03-06] MEDS: Polyethylene Glycol 3350* 17 GM PACKET PO SCH (07:56)
[2019-03-06] MEDS: Heparin VIAL(*) 5000 UNITS/ML VIAL (FIVE THOUSAND) SUBCUT SCH ×2 (07:57→21:13)
[2019-03-06] MEDS: Pantoprazole TAB * 40 MG TAB PO SCH (07:57)
[2019-03-06] MEDS: Senna TAB 8.6 mg* TAB PO SCH ×2 (07:57→21:13)
[2019-03-06] MEDS: Magnesium Oxide TAB* 400 MG PO SCH ×2 (07:57→21:13)
[2019-03-06] MEDS: OLANzapine TAB* 10 MG PO SCH ×2 (08:10→21:13)
[2019-03-06] MEDS ORDERED: Magnesium Sulfate 2 GM IV* 2 GM/50 ML BAG IVPB ONE (08:29)
--- NOTE | 2019-03-06 08:37 | PN ---
Progress Note - Progress Note Date of Service: 03/06/19 SOAP: Subjective: anxious this am that she is not urinating from below. pain under good control. no BM x 2 days Objective: Vital Signs Temp Pulse Resp BP Pulse Ox 99.2 F 97 16 127/67 97 03/06/19 03:25 03/06/19 03:25 03/06/19 03:25 03/06/19 03:25 03/06/19 03:25 lying flat in nad perr eomi op moist cta bl s1 s2 nl soft slightly distended, nontender +bs bilateral nephrostomy tubes with pinkish urine no le edema A+O x 3, nonfocal Laboratory Results - last 24 hr 03/05/19 03/06/19 03/06/19 05:08 04:42 04:42 WBC 8.4 RBC 2.77 L Hgb 8.2 L Hct 24 L MCV 86 MCH 30 MCHC 34 RDW 15 Plt Count 233 MPV 6.7 L Neut % (Auto) 81.9 Lymph % (Auto) 8.7 [place] % (Auto) 7.0 Eos % (Auto) 1.6 Baso % (Auto) 0.8 Absolute Neuts (auto) 6.8 Absolute Lymphs (auto) 0.7 L Absolute Monos (auto) 0.6 Absolute Eos (auto) 0.1 Absolute Basos (auto) 0.1 Absolute Nucleated RBC 0.0 Nucleated RBC % 0.0 Sodium 138 141 Potassium 4.9 4.5 Chloride 109 114 H Carbon Dioxide 19 L 19 L Anion Gap 10 8 BUN 84 H 66 H Creatinine 4.86 H 4.20 H Est GFR ( Amer) 10.7 12.6 Est GFR (Non-Af Amer) 8.8 10.4 BUN/Creatinine Ratio 17.3 15.7 Glucose 87 101 H Calcium 8.8 8.2 L Magnesium 1.7 L 1.6 L Acetaminophen (Tylenol Tab*) 650 mg PO Q6H PRN PRN Reason: PAIN - MILD Aripiprazole (Abilify Tab*) 15 mg PO QPM [facility] Last Admin: 03/05/19 18:22 Dose: 15 mg Heparin Sodium (Porcine) (Heparin Vial(*)) 5,000 units SUBCUT Q12HR [facility] Last Admin: 03/06/19 07:57 Dose: 5,000 units Magnesium Sulfate (Magnesium Sulfate 2 Gm Iv*) 2 gm in 50 mls @ 50 mls/hr IVPB ONCE ONE Stop: 03/06/19 09:28 Sodium Chloride (Ns 0.9% 1000 Ml) 1,000 mls @ 100 mls/hr IV PER RATE [facility] Levothyroxine Sodium (Synthroid Tab*) 88 mcg PO DAILY@0600 [facility] Last Admin: 03/06/19 05:17 Dose: 88 mcg Magnesium Oxide (Magox 400 Tab*) 400 mg PO BID [facility] Last Admin: 03/06/19 07:57 Dose: 400 mg Morphine Sulfate (Morphine Inj (Syringe))*) 2 mg IV Q4H PRN PRN Reason: PAIN - MILD Olanzapine (Zyprexa Tab*) 10 mg PO BID [facility] Last Admin: 03/06/19 08:10 Dose: 10 mg Ondansetron HCl (Zofran Tab*) 4 mg PO Q6H PRN PRN Reason: NAUSEA Pantoprazole Sodium (Protonix Tab*) 40 mg PO QAM [facility] Last Admin: 03/06/19 07:57 Dose: 40 mg Polyethylene Glycol/Electrolytes (Miralax*) 17 gm PO DAILY [facility] Last Admin: 03/06/19 07:56 Dose: 17 gm Senna (Senokot 8.6 Mg Tab*) 1 tab PO BID [facility] Last Admin: 03/06/19 07:57 Dose: 1 tab Assessment: 73 yo F w remote rectal cancer and relatively recent (over last 5-6 months) bilateral hydronephrosis of unclear etiology with progressive renal failure despite stents, now sp bilateral nephrostomy tubes, with improving creatinine. Plan: CASIMIRO: acute on chronic renal failure, obstructive uropathy, will likely never return to "normal" given chronicity renal follow up on discharge, discuss with renal, will order IgG 4 now. decrease IVFs to 100 cc/hr IV mag today constipation: miralax and senna heparin for DVT prophylaxis renal diet anticipate D/C in next 24-48 hrs
[2019-03-06] MEDS: NS 0.9% 1000 ML** 1,000 ML IV SCH (15:19)
[2019-03-06] MEDS: ARIPiprazole TAB* 15 MG PO SCH (17:35)
[2019-03-07] MEDS: NS 0.9% 1000 ML** 1,000 ML IV SCH (01:26)
[2019-03-07 05:50] LABS: Hematocrit 22 % (35-47); Hemoglobin 7.4 g/dL (12.0-16.0); Mean Corpuscular HGB Conc 34 g/dL (31-36); Mean Corpuscular Hemoglobin 29 pg (27-31); Mean Corpuscular Volume 86 fL (80-97); Mean Platelet Volume 6.1 fL (7.4-10.4); Platelet Count 222 10^3/uL (150-450); Red Blood Count 2.55 10^6 /uL (3.70-4.87); Red Cell Distribution Width 14 % (10-15); White Blood Count 6.7 10^3/uL (3.5-10.8)
[2019-03-07 05:53] LABS: ABS Eosinophils 0.2 10^3/ul (0-0.6); ABS Lymphocytes 0.8 10^3/ul (1.0-4.8); ABS Monocytes 0.5 10^3/ul (0-0.8); ABS Neutrophils 5.3 10^3/ul (1.5-7.7); Eosinophil % 3.3 %; Lymphocyte % 11.3 %
[2019-03-07 06:05] LABS: BUN/Creatinine Ratio 14.8 (8-20); Calcium 8.1 mg/dL (8.6-10.3); EGFR African American 15.5 (>60); EGFR Non-African American 12.8 (>60); Potassium 4.5 mmol/L (3.5-5.0)
[2019-03-07] MEDS: Levothyroxine TAB* 88 MCG TAB PO SCH (06:23)
[2019-03-07] MEDS: Heparin VIAL(*) 5000 UNITS/ML VIAL (FIVE THOUSAND) SUBCUT SCH (10:21)
[2019-03-07] MEDS: Senna TAB 8.6 mg* TAB PO SCH (10:21)
[2019-03-07] MEDS: Polyethylene Glycol 3350* 17 GM PACKET PO SCH (10:21)
[2019-03-07] MEDS: OLANzapine TAB* 10 MG PO SCH (10:21)
[2019-03-07] MEDS: Magnesium Oxide TAB* 400 MG PO SCH (10:21)
[2019-03-07] MEDS: Pantoprazole TAB * 40 MG TAB PO SCH (10:21)
--- NOTE | 2019-03-07 13:20 | DS ---
CC: Dr. Dale; Dr. Jered Griffith * DISCHARGE SUMMARY: DATE OF ADMISSION: 03/04/19 DATE OF DISCHARGE: 03/07/19 PRIMARY CARE PROVIDER: Dr. Dale. CONSULTING INTERVENTIONAL RADIOLOGIST: Dr. Griffith. PRIMARY ONCOLOGIST AND ATTENDING PHYSICIAN: Dr. Vikram Dumont.* (DICTATED BY SUE VERDIN) DISCHARGING PROVIDER: SUE Verdin PRIMARY DISCHARGE DIAGNOSES: 1. Acute on chronic renal failure with obstructive uropathy, status post bilateral nephrostomy tube placement. 2. Candidal pyelonephritis. 3. History of rectal cancer. 4. Anemia likely related to renal disease. DISCHARGE MEDICATIONS: 1. Abilify 15 mg p.o. daily. 2. Meclizine 25 mg p.o. twice daily as needed for dizziness. 3. Zyprexa 10 mg p.o. twice daily. 4. Omeprazole 20 mg p.o. daily. 5. Zofran 4 mg p.o. q.6 hours as needed for nausea and vomiting. 6. MiraLAX 17 g p.o. daily. 7. Acetaminophen 650 mg p.o. q.6 hours as needed. 8. Ferrous sulfate 325 mg p.o. twice daily. 9. Fluconazole 400 mg p.o. daily x14 days. 10. Levothyroxine 88 mcg p.o. daily. 11. Magnesium oxide 400 mg p.o. twice daily. HOSPITAL IMAGING: Renal ultrasound on 03/04/19 demonstrates bilateral hydronephrosis, which had progressed since prior exam. HOSPITAL COURSE: This is a 73-year-old female with a history of rectal cancer followed by Dr. Dumont who has had multiple admissions for obstructive uropathy with frequent ureteral stents placed by Dr. Felton, who presented for routine office visit with Dr. Dumont the day of admission with concerns regarding abdominal pain and just not feeling well for some time. Her appetite had been poor and she had generally been quite fatigued. Labs in the office revealed a creatinine of 5.29, previously measured 3 weeks prior at 3.57. Dr. Felton was contacted at the time who recommended percutaneous nephrostomy tube placement, which was subsequently done by Dr. Jered Griffith on the day of admission. The patient's nephrostomy tube placement was unremarkable and the patient tolerated this well. Her creatinine improved throughout her hospital stay to 3.5 at the time of discharge. Hemoglobin at the time of discharge was 7.4 without any obvious signs of bleeding and the patient was transfused 1 unit of packed red blood cells. Of note, she has had progressive anemia over the last 6 months or so, likely related to her chronic kidney disease. In regard to her recurrent obstructive uropathy, there has been no evidence of recurrent rectal cancer and the most likely etiology for her recurrent obstruction is retroperitoneal fibrosis, potentially related to prior radiation therapy from her rectal cancer. Urine cultures collected at the time of nephrostomy tube placement eventually grew Bernadette tropicalis. The patient had no fevers or other signs of systemic illness. Due to the method of collection, this was felt to be a true pathogen and warranting treatment, but certainly can be completed with oral tablets as opposed to meeting IV fluconazole. DISPOSITION AND FOLLOWUP PLAN: The patient is being discharged to home in stable condition where she lives independently. She has bilateral nephrostomy tubes in place, which will remain in place indefinitely. Recommendation from Dr. Griffith is exchange in 8 weeks which will bring us to approximately mid April. She will be treated with 14 days of fluconazole for candidal pyelonephritis. Referral has been initiated to Nephrology for outpatient consultation. Regarding her anemia, consider initiation of Epogen, but this will be deferred to Nephrology's recommendations. The patient will see Dr. Dumont in followup in approximately 2 weeks at which point labs will be repeated. SUE VERDIN [id number]/[facility] #: [id number] [facility]
[2019-03-07 19:54] VITALS: BP 156/94
== END 2019-03-07 18:35 | DRG 660 ==
LOC: MED 13:47
PROVIDERS: ADMIT Internal Medicine Hematology & Oncology; ATTEND Internal Medicine Hematology & Oncology
PROC: 0T143JD Bypass Left Kidney Pelvis to Cutaneous with Synthetic Substitute, Percutaneous Approach (ICD-10-PCS; principal; 2019-03-04)
PROC: 0T133JD Bypass Right Kidney Pelvis to Cutaneous with Synthetic Substitute, Percutaneous Approach (ICD-10-PCS; 2019-03-04)
PROC: 30233N1 Transfusion of Nonautologous Red Blood Cells into Peripheral Vein, Percutaneous Approach (ICD-10-PCS; 2019-03-07)
DX: N17.8 Other acute kidney failure (principal); B37.49 Other urogenital candidiasis; N13.0 Hydronephrosis with ureteropelvic junction obstruction; N18.9 Chronic kidney disease, unspecified; D63.1 Anemia in chronic kidney disease; E03.9 Hypothyroidism, unspecified; F20.9 Schizophrenia, unspecified; K59.00 Constipation, unspecified; Z85.048 Personal history of other malignant neoplasm of rectum, rectosigmoid junction, and anus; Z79.1 Long term (current) use of non-steroidal anti-inflammatories (NSAID); Z79.899 Other long term (current) drug therapy
CPT/HCPCS: 36415; 50432; 76775; 80048; 81003; 81015; 83735; 85025; 85049; 85610; 86078; 86850; 86900; 86901; 86922; 87086; 87106; 87186; 99156; 99157; 99223; 99232; 99239; A9270-GY; J0744; J1644; J2310; J3010; J3475; P9040; Q9967

== ENCOUNTER 2019-04-20 11:31 | Emergency (ER) | payer MEDICARE, MEDICAID ==
--- NOTE | 2019-04-20 12:02 | ED ---
Abdominal Pain/Female - HPI Summary HPI Summary: This pt is a 73 Y/O F presenting to [facility] with a CC of her nephrostomy tube malfunctioning and associated abdominal pain. She states that her nephrostomy tube is bilateral but her L side is not draining. She also has bilateral flank, pelvic pain and low back pain. 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 She states that she had N/V/D since yesterday and had another episode of vomiting this morning. She states that this morning she vomited water. She states that she has a headache as well. She had slight abdominal pain a couple days ago, and notes that her L nephrostomy tube has been slow and hasnt filled up normally over the last couple of weeks. She states that she has tingling over her whole body. She rates her pain a 10/10 in severity. She states no aggravating or alleviating factors. She has a PMHx of Colon cancer, Chronic Kidney Disease, and bilateral hydronephrosis. - History of Current Complaint Chief Complaint: EDGeneral Stated Complaint: NEPHROSTOMY TUBE IS NOT WORKING PER PT Time Seen by Provider: 04/20/19 11:45 Hx Obtained From: Patient Onset/Duration: Sudden Onset, Lasting Days - 1 Timing: Constant Severity Initially: Severe Severity Currently: Severe Pain Intensity: 10 Pain Scale Used: 0-10 Numeric Location: Other - Pelvis, low back pain Radiates: Yes Radiates to: Flank Aggravating Factor(s): Other: - States her nephrostomy tube isnt working Alleviating Factor(s): Nothing Associated Signs and Symptoms: Positive: Fever, Back Pain - low, Urinary Symptoms - States that her L nephrostomy bag isn't working, blood in R nephrostomy bag, Nausea, Vomiting, Diarrhea, Other: - Headache, tingling over body Allergies/Adverse Reactions: Allergies Allergy/AdvReac Type Severity Reaction Status Date / Time No Known Allergies Allergy Verified 04/20/19 11:37 PMH/Surg Hx/FS Hx/Imm Hx Previously Healthy: Yes Endocrine/Hematology History: Reports: Hx Thyroid Disease - hypo, Hx Anemia - history of anemia after surgery 2016 Denies: Hx Diabetes, Hx Systemic Lupus Erythematosus, Hx Sickle Cell Disease Cardiovascular History: Denies: Hx Congestive Heart Failure, Hx Hypertension, Hx Pacemaker/ICD, Other Cardiovascular Problems/Disorders Respiratory History: Reports: Hx Seasonal Allergies Denies: Hx Asthma, Other Respiratory Problems/Disorders GI History: Reports: Hx Gastroesophageal Reflux Disease - ON MEDICATION FOR, Hx Ileostomy Comment Only: Other GI Disorders - Colorectal cancer, Hx of COLOSTOMY- reversed 2016, Constipation History: Reports: Hx Acute Renal Failure, Hx Kidney Infection - HX OF, Hx Renal Disease - BILAT STENTS 12/06/18, Other Problems/Disorders - alexander hydronephrosis Denies: Hx Dialysis Musculoskeletal History: Reports: Other Musculoskeletal History Denies: Hx Rheumatoid Arthritis Sensory History: Reports: Hx Cataracts - very mild, Hx Contacts or Glasses, Hx Hearing Problem - no SANDHU Denies: Hx Hearing Aid Opthamlomology History: Reports: Hx Cataracts - very mild, Hx Contacts or Glasses Neurological History: Denies: Other Neuro Impairments/Disorders Psychiatric History: Reports: Hx Anxiety - ON MEDICATION FOR, Hx Depression - ON MEDICATION FOR, Hx [place]patient Treatment - [place] [facility] [place] Hx Schizophrenia - SEES PSYCHIATRIST EVERY 3 MONTHS [facility] Denies: Hx Attention Deficit Hyperactivity Disorder, Hx Eating Disorder, Hx Panic Disorder, Hx Post Traumatic Stress Disorder, Hx Community Mental Health Tx , Hx Bipolar Disorder, Hx Suicide Attempt, Hx of Violent Episodes Against Others , Hx Substance Abuse, Other Psychiatric Issues/Disorders - Cancer History Cancer Type, 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 BASAL CELL CA Hx Chemotherapy: No Hx Radiation Therapy: Yes - FOR BREAST AND RECTUM - Surgical History Surgery Procedure, Year, and Place: 2004 [place] [facility] [place] 2 COLON RESECTIONS FOR [place] [place] 2013 [place] [facility] [place] 12[place] [facility] [place] 05/2014 COLOSTOMY REVERSAL. left leg skin cancer. (5 ABD SURGERIES TOTAL). Ureteral stents x3 pt believes. Basal cell CA removed from forehead and breast Hx Anesthesia Reactions: No Infectious Disease History: No Infectious Disease History: Denies: Hx Clostridium Difficile, Hx Hepatitis, Hx Human Immunodeficiency Virus (HIV), Hx Shingles, Hx Tuberculosis, Traveled Outside the [place] in Last 30 Days - Family History Known Family History: Positive: Non-Contributory - Social History Alcohol Use: None Substance Use Type: Reports: None Hx Tobacco Use: No Smoking Status (MU): Never Smoked Tobacco Have You Smoked in the Last Year: No Review of Systems Positive: Abdominal Pain - pelvic, radiates to flanks , Vomiting, Diarrhea, Nausea Positive: flank pain - radiated , hematuria - R nephrostomy bag , pain, other - L nephrostomy bag isn't filling Neurological: Other - tingling over body Positive: Headache All Other Systems Reviewed And Are Negative: Yes Physical Exam - Summary Physical Exam Summary: Constitutional: Well-developed, Well-nourished, Alert. (-) Distressed Skin: Warm, Dry HENT: Normocephalic; Atraumatic Eyes: Conjunctiva normal Neck: Musculoskeletal ROM normal neck. (-) JVD, (-) Stridor, (-) Tracheal deviation Cardio: Rhythm regular, rate normal, Heart sounds normal; Intact distal pulses; The pedal pulses are 2+ and symmetric. Radial pulses are 2+ and symmetric. Pulmonary/Chest wall: Effort normal. (-) Respiratory distress, (-) Wheezes, (-) Rales Abd: Soft, lower tenderness, mild distension, (-) Guarding, (-) Rebound, bilateral nephrostomy tubes noted, no urine in L nephrostomy bag. Nephrostomy scars appears non-infected Musculoskeletal: (-) Edema Neuro: Alert, Oriented x3 Psych: Mood and affect Normal Triage Information Reviewed: Yes Vital Signs On Initial Exam: Initial Vitals Temp Pulse Resp BP Pulse Ox 97.4 F 95 16 129/88 96 04/20/19 11:33 04/20/19 11:33 04/20/19 11:33 04/20/19 11:33 04/20/19 11:33 Vital Signs Reviewed: Yes Procedures - Sedation Patient Received Moderate/Deep Sedation with Procedure: No Diagnostics - Vital Signs Vital Signs Temp Pulse Resp BP Pulse Ox 04/20/19 11:33 97.4 F 95 16 129/88 96 - Laboratory Result Diagrams: 04/20/19 12:20 04/20/19 12:20 Lab Statement: Any lab studies that have been ordered have been reviewed, and results considered in the medical decision making process. - CT CT A/P CT Interpretation Completed By: Radiologist Summary of CT Findings: 1. THERE ARE BILATERAL NEPHROSTOMY CATHETERS WHICH APPEAR TO BE IN NORMAL POSITION. THERE. IS NO EVIDENCE FOR HYDRONEPHROSIS. THE LEFT KIDNEY IS ENLARGED WITH PERINEPHRIC STRANDING. WHICH IS A NONSPECIFIC FINDING ALTHOUGH SUGGESTING THE POSSIBILITY OF PYELONEPHRITIS. RECOMMEND CLINICAL CORRELATION. 2. THERE ARE MULTIPLE ENLARGED RETROPERITONEAL LYMPH NODES MEDIAL AND SUPERIOR TO THE LEFT. KIDNEY WHICH ARE UNCHANGED WHICH MAY BE SECONDARY TO AN INFECTIOUS PROCESS OR METASTATIC. DISEASE GIVEN THE PATIENT'S CLINICAL HISTORY. 3. DILATATION OF THE RECTOSIGMOID COLON WITH A MODERATE TO LARGE AMOUNT RETAINED STOOL. SUGGESTIVE OF CONSTIPATION. THIS HAS PROGRESSED FROM THE PRIOR STUDY. 4. CHOLELITHIASIS WITHOUT EVIDENCE FOR ACUTE CHOLECYSTITIS. ED physician has reviewed this report. Re-Evaluation - Re-Evaluation First Eval Re-Evaluation Time: 12:17 Change: Improved Comment: Left nephrostomy tube was in the off position, opened and allowed the free flow of urine into the nephrostomy bag, not cloudy or bloody. Abdominal Pain Fem Course/Dx - Course Course Of Treatment: This pt is a 73 Y/O F presenting to [facility] with a CC of her nephrostomy tube malfunctioning and associated abdominal pain. She states that her nephrostomy tube is bilateral but her L side is not draining. She also has bilateral flank, pelvic pain and low back pain. 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 She states that she had N/ V/D since yesterday and had another episode of vomiting this morning. She states that this morning she vomited water. She states that she has a headache as well. She had slight abdominal pain a couple days ago, and notes that her L nephrostomy tube has been slow and hasnt filled up normally over the last couple of weeks. On her PE she has mild distension, bilateral nephrostomy tubes noted, no urine in L nephrostomy bag, Nephrostomy scars appears non- infected. She also has lower abdominal tenderness. 1217: Left nephrostomy tube was in the off position, opened and allowed the free flow of urine into the nephrostomy bag, not cloudy or bloody. CT A/P found the followin. THERE ARE BILATERAL NEPHROSTOMY CATHETERS WHICH APPEAR TO BE IN NORMAL POSITION. THERE. IS NO EVIDENCE FOR HYDRONEPHROSIS. THE LEFT KIDNEY IS ENLARGED WITH PERINEPHRIC STRANDING. WHICH IS A NONSPECIFIC FINDING ALTHOUGH SUGGESTING THE POSSIBILITY OF PYELONEPHRITIS. RECOMMEND CLINICAL CORRELATION. 2. THERE ARE MULTIPLE ENLARGED RETROPERITONEAL LYMPH NODES MEDIAL AND SUPERIOR TO THE LEFT. KIDNEY WHICH ARE UNCHANGED WHICH MAY BE SECONDARY TO AN INFECTIOUS PROCESS OR METASTATIC. DISEASE GIVEN THE PATIENT'S CLINICAL HISTORY. 3. DILATATION OF THE RECTOSIGMOID COLON WITH A MODERATE TO LARGE AMOUNT RETAINED STOOL. SUGGESTIVE OF CONSTIPATION. THIS HAS PROGRESSED FROM THE PRIOR STUDY. 4. CHOLELITHIASIS WITHOUT EVIDENCE FOR ACUTE CHOLECYSTITIS. She was given Zofran during her ED course. Her UA is consistent with a UTI. She will be discharged home with a Dx of a UTI and constipation. She will be given Keflex. - Diagnoses Provider Diagnoses: UTI (urinary tract infection), Constipation Discharge ED - Sign-Out/Discharge Documenting (check all that apply): Patient Departure - discharge - Discharge Plan Condition: Stable Disposition: HOME Patient Education Materials: Urinary Tract Infection in Older Adults (ED), Constipation (ED) Referrals: Erinn Mae MD [Medical Doctor] - 2 Days Additional Instructions: PLEASE FOLLOW UP WITH DR. MAE, NEPHROLOGY, IN 1-3 DAYS AND RETURN TO THE EMERGENCY DEPARTMENT FOR ANY NEW OR WORSENING SYMPTOMS. - Attestation Statements Document Initiated by Scribe: Yes Documenting Scribe: King Varela Provider For Whom Scribe is Documenting (Include Credential): Rex Knox DO Scribe Attestation: King Soto, scribed for Rex Knox DO on 04/20/19 at 1516. Status of Scribe Document: Ready
[2019-04-20] MEDS ORDERED: NS 0.9% 1000 ML** 1,000 ML IV ONE (12:08)
[2019-04-20] MEDS ORDERED: Ondansetron INJ* 2 MG/ML VIAL IV ONE (12:10)
--- OUTSIDE RECORDS SUMMARY | 2019-04-20 12:14 | XMS REPORT ---
:1945 Author Organization [facility] Care Team Providers Name Role Phone Unavailable Unavailable Unavailable Problems Condition Condition Condition Status Onset Resolution Last Treating Comments Name Details Category Date Date Treatment Clinician Date Acute Acute Diagnosis Active 2018-04 Susy kidney kidney 05-09 [place]ke failure, failure, RN unspecified unspecified Encounter Encounter Diagnosis Active 2018-04 Susy for for 05-09 [place] attention attention RN to other to other artificial artificial openings of openings of urinary urinary tract tract Major Major Diagnosis Active 2018-04 Susy depressive depressive 05-09 [place]ke disorder, disorder, RN recurrent, recurrent, unspecified unspecified Anemia, Anemia, Diagnosis Active 2018-04 Susy unspecified unspecified 05-09 Malnoske RN Personal Personal Diagnosis Active 2018-04 Susy history of history of 05-09 Malnoske other other RN malignant malignant neoplasm of neoplasm of rectum, rectum, rectosigmoi rectosigmoi d junction, d junction, and anus and anus Pain frequent Pain Mgmt Resolve 2018-042019-03-18 Lakesha pain d 05-09 11:38:00 Marge 09:05: [id number] Integument surgical Integument Active 2018-04 Lakesha wound 05-09 [place] present 09:05: [id number] Integument knowledge/s Integument Active 2018-04 Lakesha kill 05-09 [place] deficit: pt 09:05: [id number] Nutrition knowledge/s Nutrition Resolve 2018-042019-04-01 Lakesha kill d 05-09 09:33:00 Marge deficit: pt 09:05: [id number] 00 Nutrition nutritional Nutrition Resolve 2018-042019-03-18 Lakesha restriction d 05-09 11:38:00 Marge s 09:05: [id number] Elimination ostomy Eliminatio Resolve 2018-042019-04-01 Lakesha present n d 05-09 09:33:00 Marge 09:05: [id number] 00 Neuro confusion Neuro/Emot Resolve 2018-042019-04-01 Lakesha present ion d 05-09 09:33:00 Marge 09:05: [id number] 00 Neuro anxiety Neuro/Emot Resolve 2018-042019-04-01 Lakesha present ion d 05-09 09:33:00 [place] 09:05: [id number] Neuro depressive Neuro/Emot Resolve 2018-042019-04-01 Lakesha feelings ion d 05-09 09:33:00 [place] present 09:05: [id number] 00 Activity ADL Activity Resolve 2018-042019-03-25 Lakesha assistance d 05-09 09:30:00 [place] required 09:05: [id number] Activity self-care Activity Resolve 2018-042019-03-14 Lakesha deficit d 05-09 11:27:00 [place] 09:05: [id number] Safety knowledge/s Safety Resolve 2018-042019-03-18 Lakesha kill d 05-09 11:38:00 Marge deficit: pt 09:05: [id number] Safety fall risk Safety Resolve 2018-042019-03-18 Lakesha factor d 05-09 11:38:00 [place] present 09:05: [id number] Safety risk for Safety Resolve 2018-042019-03-18 Lakesha hospitaliza d 05-09 11:38:00 [place] tion 09:05: [id number] 00 Medication oral med Meds Resolve 2018-042019-03-25 Lakesha assistance d 05-09 09:30:00 [place] required 09:05: [id number] 00 Medication knowledge/s Meds Resolve 2018-042019-03-25 Lakesha kill d 05-09 09:30:00 [place] deficit: pt 09:05: [id number] 00 Musculoskel transfer Musculoske Resolve 2018-042019-03-18 Lakesha etal assistance letal d 05-09 11:38:00 [place] required 09:05: [id number] Cath/Ostomy k/s Cath\Ostom Active 2018-04 Lakesha /GI deficit: y\GI Care 05-09 [place] cath/ost/GI 09:05: [id number] care - pt 00 Nutrition nutritional Nutrition Resolve 2018-042019-04-01 Fabby restriction d 2-03 09:33:00 [place] s 13:30: t 00 [id number] Safety knowledge/s Safety Resolve 2018-042019-04-01 Fabby kill d 2- 09:33:00 [place] deficit: pt 13:30: t 00 [id number] Safety risk for Safety Resolve 2018-042019-03-25 Susy hospitaliza d 2- 09:30:00 [place]ke tion 09:30: RN 00 Safety risk for Safety Resolve 2018-042019-04-01 Fabby hospitaliza d 2- 09:33:00 [place]brand tion 13:00: t 00 [id number] Nutrition knowledge/s Nutrition Resolve 2018-042019-04-08 Fabby kill d 2- 09:30:00 [place] deficit: pt 13:30: t 00 [id number] Nutrition nutritional Nutrition Resolve 2018-042019-04-08 Fabby restriction d 2- 09:30:00 [place]brand s 13:30: t 00 [id number] Safety risk for Safety Resolve 2018-042019-04-12 Fabby hospitaliza d 2- 08:09:00 [place] tion 13:30: t 00 [id number] Elimination ostomy Eliminatio Active 2018-04 Ussy present n 2-20 Malnoske 09:30: RN 00 Neuro anxiety Neuro/Emot Resolve 2018-042019-04-12 Susy present ion d 2-20 08:09:00 [place] 09:30: RN 00 Nutrition nutritional Nutrition Active 2018-04 Susy restriction 2-24 Malnoske s 08:09: RN 00 Allergies, Adverse Reactions, Alerts Allergy Allergy Status Severity Reaction(s) Onset Inactive Treating Comments Name Type Date Date Clinician Unknown None Active Unknown None Unknown No Known Allergies For This Patient Medications Ordered Filled Start Stop Current Ordering Indication Dosage Frequency Signature Comments Components Medication Medication Date Date Medication? Clinician (SIG) Name Name ARIPiprazol ARIPiprazol 2018-04 Yes Breiman Unknown Unknown e 15 mg e 15 mg -20 Reji ALVAREZ tablet tablet FeroSul 325 FeroSul 325 2018-04 Yes Breiman Unknown Unknown mg (65 mg mg (65 mg -20 Reji ALVAREZ iron) iron) tablet tablet levothyroxi levothyroxi 2018-04 Yes Breiman Unknown Unknown ne 88 mcg ne 88 mcg 05-09 Reji ALVAREZ tablet tablet magnesium magnesium 2018-04 Yes Breiman Unknown Unknown oxide 400 oxide 400 05-09 Reji ALVAREZ mg (241.3 mg (241.3 mg mg magnesium) magnesium) tablet tablet meclizine meclizine 2018-04 Yes Breiman Unknown Unknown 25 mg 25 mg 05-09 Reji ALVAREZ tablet tablet polyethylen polyethylen 2018-04 Yes Breiman Unknown Unknown e glycol e glycol 05-09 Reji ALVAREZ 3350 17 3350 17 gram/dose gram/dose oral powder oral powder OLANZapine OLANZapine 2018-04 Yes Breiman Unknown Unknown 10 mg 10 mg 05-09 Reji ALVAREZ tablet tablet omeprazole omeprazole 2018-04 Yes Breiman Unknown Unknown magnesium magnesium 05-09 Reji ALVAREZ 20 mg 20 mg tablet,snehal tablet,snehal yed release yed release Tylenol 325 Tylenol 325 2018-04 Yes Breiman Unknown Unknown mg tablet mg tablet 05-09 Reji ALVAREZ Zofran 4 mg Zofran 4 mg 2018-04 Yes Breiman Unknown Unknown tablet tablet 05-09 Reji ALVAREZ chlorhexidi chlorhexidi 2018-04- Yes Breiman Unknown Unknown ne ne 05-09 Reji ALVAREZ gluconate gluconate 0.12 % 0.12 % mouthwash mouthwash fluconazole fluconazole 2018-04- Yes Breiman Unknown Unknown 200 mg 200 mg 05-09 12 Reji ALVAREZ tablet tablet Vital Signs Vital Name Observation Time Observation Value Comments SYSTOLIC mm[Hg] 2019-04-12 18:09:31 112 mm[Hg] mm[Hg] Method: Sit SYSTOLIC mm[Hg] 2019-03-09 18:08:57 128 mm[Hg] mm[Hg] Method: Stand DIASTOLIC mm[Hg] 2019-04-12 18:09:31 74 mm[Hg] mm[Hg] Method: Sit DIASTOLIC mm[Hg] 2019-03-09 18:08:57 74 mm[Hg] mm[Hg] Method: Stand PULSE 2019-04-12 18:09:31 87 /min /min RESP RATE 2019-04-12 18:09:31 16 /min /min TEMP 2019-04-12 18:09:31 98.3 [degF] Procedures This patient has no known procedures. Results This patient has no known results.
--- OUTSIDE RECORDS SUMMARY | 2019-04-20 12:14 | XMS REPORT ---
:1945 Author Organization [facility] Care Team Providers Name Role Phone Unavailable [...] Resolve 2018-042019-03-18 Lakesha pain d 05-09 11:38:00 [place] 09:05: [id number] Integument surgical Integument Active 2018-04 [place]ha wound 05-09 [place] present 09:05: [id number] 00 Integument knowledge/s Integument Active 2018-04 Lakesha kill 05-09 [place] deficit: pt 09:05: [id number] Nutrition knowledge/s Nutrition Resolve 2018-042019-04-01 Lakesha kill d 05-09 09:33:00 Marge deficit: pt 09:05: [id number] 00 Nutrition nutritional Nutrition Resolve 2018-042019-03-18 Lakesha restriction d 05-09 11:38:00 Marge s 09:05: [id number] 00 Elimination ostomy Eliminatio Resolve 2018-042019-04-01 Lakesha present n d 05-09 09:33:00 Marge 09:05: [id number] 00 Neuro confusion Neuro/Emot Resolve 2018-042019-04-01 Lakesha present ion d 05-09 09:33:00 Marge 09:05: [id number] 00 Neuro anxiety Neuro/Emot Resolve 2018-042019-04-01 Lakesha present ion d 05-09 09:33:00 [place] 09:05: [id number] 00 Neuro depressive Neuro/Emot Resolve 2018-042019-04-01 Lakesha feelings ion d 05-09 09:33:00 [place] present 09:05: [id number] 00 Activity ADL Activity Resolve 2018-042019-03-25 [place]ha assistance d 05-09 09:30:00 [place] required 09:05: [id number] Activity self-care Activity Resolve 2018-042019-03-14 Lakesha deficit d 05-09 11:27:00 [place] 09:05: [id number] Safety knowledge/s Safety Resolve 2018-042019-03-18 Lakesha kill d 05-09 11:38:00 Marge deficit: pt 09:05: [id number] Safety fall risk Safety Resolve 2018-042019-03-18 Lakesha factor d 05-09 11:38:00 [place] present 09:05: [id number] Safety risk for Safety Resolve 2018-042019-03-18 Lakesha hospitaliza d 05-09 11:38:00 [place] tion 09:05: [id number] 00 Medication oral med Meds Resolve 2018-042019-03-25 [place]ha assistance d 05-09 09:30:00 [place] required 09:05: [id number] Medication knowledge/s Meds Resolve 2018-042019-03-25 [place]ha kill d 05-09 09:30:00 [place] deficit: pt 09:05: [id number] 00 Musculoskel transfer Musculoske Resolve 2018-042019-03-18 [place]ha etal assistance letal d 05-09 11:38:00 [place] required 09:05: [id number] 00 Cath/Ostomy k/s Cath\Ostom Active 2018-04 Lakesha /GI deficit: y\GI Care 05-09 [place] cath/ost/GI 09:05: [id number] care - pt 00 Nutrition nutritional Nutrition Resolve 2018-042019-04-01 Fabby restriction d 2-03 09:33:00 [place] s 13:30: t 00 [id number] Safety knowledge/s Safety Resolve 2018-042019-04-01 [place]by kill d 2- 09:33:00 [place] deficit: pt 13:30: t 00 [id number] Safety risk for Safety Resolve 2018-042019-03-25 Susy hospitaliza d 2- 09:30:00 [place] tion 09:30: RN 00 Safety risk for Safety Resolve 2018-042019-04-01 Fabby hospitaliza d 2- 09:33:00 [place] tion 13:00: t 00 [id number] Nutrition knowledge/s Nutrition Resolve 2018-042019-04-08 Fabby kill d 2- 09:30:00 [place] deficit: pt 13:30: t 00 [id number] Nutrition nutritional Nutrition Resolve 2018-042019-04-08 Fabby restriction d 2- 09:30:00 [place] s 13:30: t 00 [id number] Safety risk for Safety Resolve 2018-042019-04-12 [place] hospitaliza d 2- 08:09:00 [place] tion 13:30: t 00 [id number] Elimination ostomy Eliminatio Active 2018-04 Susy present n 2-20 [place] 09:30: RN 00 [...]
--- OUTSIDE RECORDS SUMMARY | 2019-04-20 12:14 | XMS REPORT | Continuity of Care Document ---
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 Onset: 06/01/2012 Social History Type Date Description Comments Sex Unknown Tobacco Use Start: Unknown Patient has never smoked Smoking Status Reviewed: 02/25/19 Patient has never smoked Allergies, Adverse Reactions, Alerts Description No Known Drug Allergies Medications Active Medications SIG Qnty Indications Ordering Provider Date Meclizine HCL 1 po bid as 20tabs Reji Dale, 04/18/2016 25mg Tablets needed Levothyroxine Sodium use 1 by mouth 90tabs Reji Dale, 07/16/2015 88mcg q.d Tablets Omeprazole 1 po qd 30caps Reji Dale, 06/10/[address] Abilify 1 po qd Unknown 09/05/2003 15mg Tablets Olanzapine 1 by mouth Unknown 10mg Tablets twice a day Tylenol 1-2 po as Unknown 325mg Capsules needed Zofran 1 by mouth 30tabs Reji Dale, 8mg Tablets Every 8 Hours as needed Miralax use 1 capful Unknown 3350NF Packet per day for constipation. Immunizations Description No Information Available Vital Signs Date Vital Result Comment 02/25/2019 2:56pm Height 61 inches 5'1" Weight 120.00 lb BMI (Body Mass Index) 22.7 kg/m2 01/03/2019 2:42pm Height 61 inches 5'1" Weight 123.00 lb BP Systolic 147 mmHg BP Diastolic 87 mmHg Heart Rate 98 /min BMI (Body Mass Index) 23.2 kg/m2 Results Test Acquired Date Facility Test Result H/L Range Note CBC Auto Diff 12/30/2018 [facility] White Blood 9.5 10^3/uL Normal 3.5-10.8 Count Red Blood Count 2.69 10^6/uL Low 3.70-4.87 [...] Auto CNT <pending> MPV <pending> Lymph% <pending> [place]% <pending> Neutrophil % <pending> Absolute Lymphocytes <pending> [...] Auto CNT <pending> MPV <pending> Lymph% <pending> [place]% <pending> Neutrophil % <pending> Absolute Lymphocytes <pending> Absolute Monocytes <pending> Absolute Neutrophils <pending> Laboratory test 12/09/2018 [facility] [place] Surgical Pathology SEE RESULT 1 finding Order [...] Auto CNT <pending> MPV <pending> Lymph% <pending> [place]% <pending> Neutrophil % <pending> Absolute Lymphocytes <pending> [...] Auto CNT <pending> MPV <pending> Lymph% <pending> [place]% <pending> Neutrophil % <pending> Absolute Lymphocytes <pending> Absolute Monocytes <pending> Absolute Neutrophils <pending> CBC W/Auto 12/06/2018 [facility] White Blood <pending> Differential(!) Count Ser Auto CNT RBC Red Blood Count <pending> Hemoglobin Blood <pending> Hematocrit <pending> MCV (Corpuscular Volume) <pending> MCH (Corpuscular Hemoglobin) <pending> MCHC (Corpuscular Hemog Conc) <pending> RDW <pending> Platelet Count Blood Auto CNT <pending> MPV <pending> Lymph% <pending> [place]% <pending> Neutrophil % <pending> Absolute Lymphocytes <pending> [...] Auto CNT <pending> MPV <pending> Lymph% <pending> [place]% <pending> Neutrophil % <pending> Absolute Lymphocytes <pending> Absolute Monocytes <pending> Absolute Neutrophils <pending> Xray 12/05/2018 [facility] Radiology US, Renal, Complete ([id number]) <pending> Xray 12/05/2018 [facility] Radiology CT Chest/Abd/Pel W/O <pending> 1 SEE RESULT BELOW Name: KIRSTIN RESENDEZ : [address]: Estephania Malik MD Acct: [id number] Unit: [id number] AGE: 73 Location: [place] [address] Re12/05/18 Dis: 12/11/18 SEX: F Status: DIS IN SPEC: [id number] FAITH: 12/09/18- SUBM DR: Dashawn Melvin DO REQ: [id number] RECD: 12/09/18144 STATUS: ABDIRAHMAN FERNANDEZ DR: Tab Mata MD [...] ON NEXT PAGE DEPARTMENT OF PATHOLOGY, [address] [place] [address] Doni Rivero M.D. Director [facility] # [id number] RUN DATE: 12/17/18 [facility] LAB LIVE PAGE 2 Patient: MALKIRSTIN Turner [id number] (Continued) POST-OPERATIVE DIAGNOSIS (Continued) POST-OPERATIVE DIAGNOSIS EGD: [...] 1546 END OF REPORT DEPARTMENT OF PATHOLOGY, [address] [place] [address] Doni Rivero M.D. 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, rectosig junct, and anus Assessments Date Code Description Provider 02/25/2019 D64.9 Anemia, unspecified Dashawn Ngozi, DO 02/25/2019 K59.00 Constipation, unspecified Dashawn Ngozi, DO 01/03/2019 D64.9 Anemia, unspecified Dashawn Ngozi, DO 01/03/2019 K21.0 Gastro-esophageal reflux disease with Dashawn Ngozi, DO esophagitis 01/03/2019 R11.2 Nausea with vomiting, unspecified Dashawn Ngozi, DO 01/03/2019 Z85.048 Personal history of other malignant neoplasm Dashawn Ngozi , DO of rectum, rectosigmoid junction, and anus 12/30/2018 D64.9 Anemia, unspecified Dashawn Ngozi, DO 12/09/2018 R11.2 Nausea with vomiting, unspecified Dashawn Ngozi, DO 12/09/2018 D64.9 Anemia, unspecified Dashawn Ngozi, DO 12/09/2018 K29.70 Gastritis, unspecified, without bleeding Dashawn Ngozi, DO 12/09/2018 K31.7 Polyp of stomach and duodenum Dashawn Ngozi, DO 12/06/2018 D64.9 Anemia, unspecified Cirilo Henson MD Plan of Treatment No Information Available Functional Status Description No Information Available Mental Status Description No Information Available Referrals Description No Information Available
--- OUTSIDE RECORDS SUMMARY | 2019-04-20 12:14 | XMS REPORT ---
:1945 Author Organization [facility] Care Team Providers Name Role Phone Unavailable [...] Resolve 2018-042019-03-18 Lakesha pain d 05-09 11:38:00 [place] 09:05: [id number] Integument surgical Integument Active 2018-04 Lakesha wound 05-09 [place] present 09:05: [id number] Integument knowledge/s Integument Active 2018-04 Lakesha kill 05-09 [place] deficit: pt 09:05: [id number] Nutrition knowledge/s Nutrition Resolve 2018-042019-04-01 Lakesha kill d 05-09 09:33:00 Marge deficit: pt 09:05: [id number] Nutrition nutritional Nutrition Resolve 2018-042019-03-18 Lakesha restriction d 05-09 11:38:00 Marge s 09:05: [id number] Elimination ostomy Eliminatio Resolve 2018-042019-04-01 Lakesha present n d 05-09 09:33:00 Marge 09:05: [id number] 00 Neuro confusion Neuro/Emot Resolve 2018-042019-04-01 Lakesha present ion d 05-09 09:33:00 Marge 09:05: [id number] 00 Neuro anxiety Neuro/Emot Resolve 2018-042019-04-01 Lakesha present ion d 05-09 09:33:00 [place] 09:05: [id number] 00 Neuro depressive Neuro/Emot Resolve 2018-042019-04-01 Lakesha feelings ion d 05-09 09:33:00 [place] present 09:05: [id number] 00 Activity ADL Activity Resolve 2018-042019-03-25 Lakesha assistance d 05-09 09:30:00 [place] required 09:05: [id number] 00 Activity self-care Activity Resolve 2018-042019-03-14 Lakesha deficit d 05-09 11:27:00 [place] 09:05: [id number] 00 Safety knowledge/s Safety Resolve 2018-042019-03-18 Lakesha kill d 05-09 11:38:00 Marge deficit: pt 09:05: [id number] 00 Safety fall risk Safety Resolve 2018-042019-03-18 Lakesha factor d 05-09 11:38:00 [place] present 09:05: [id number] Safety risk for Safety Resolve 2018-042019-03-18 Lakesha hospitaliza d 05-09 11:38:00 [place] tion 09:05: [id number] 00 Medication oral med Meds Resolve 2018-042019-03-25 Lakesha assistance d 05-09 09:30:00 [place] required 09:05: [id number] Medication knowledge/s Meds Resolve 2018-042019-03-25 Lakesha kill d 05-09 09:30:00 [place] deficit: pt 09:05: [id number] 00 Musculoskel transfer Musculoske Resolve 2018-042019-03-18 Lakesha etal assistance letal d 05-09 11:38:00 [place] required 09:05: [id number] 00 Cath/Ostomy k/s Cath\Ostom Active 2018-04 Lakesha /GI deficit: y\GI Care 05-09 [place] cath/ost/GI 09:05: [id number] care - pt 00 Nutrition nutritional Nutrition Resolve 2018-042019-04-01 Fabby restriction d 2-03 09:33:00 [place] s 13:30: t 00 [id number] Safety knowledge/s Safety Resolve 2018-042019-04-01 Fabby kill d 2- 09:33:00 [place] deficit: pt 13:30: t 00 [id number] Safety risk for Safety Resolve 2018-042019-03-25 Susy hospitaliza d 2- 09:30:00 Mal[place] tion 09:30: RN 00 Safety risk for Safety Resolve 2018-042019-04-01 Fabyb hospitaliza d 2- 09:33:00 [place]brand tion 13:00: t 00 [id number] Nutrition knowledge/s Nutrition Resolve 2018-042019-04-08 Fabby kill d 2- 09:30:00 [place] deficit: pt 13:30: t 00 [id number] Nutrition nutritional Nutrition Resolve 2018-042019-04-08 Fabby restriction d 2- 09:30:00 [place]brand s 13:30: t 00 [id number] Safety risk for Safety Resolve 2018-042019-04-12 Fabby hospitaliza d 2-17 08:09:00 [place]brand tion 13:30: t 00 [id number] Elimination ostomy Eliminatio Active 2018-04 Susy present n 2-20 Malnoske 09:30: RN 00 Neuro anxiety Neuro/Emot Resolve 2018-042019-04-12 Susy present ion d 2-20 08:09:00 Mal[place] 09:30: RN 00 Nutrition nutritional Nutrition Resolve 2018-042019-04-12 Susy restriction d 2-24 08:09:00 Malnoske s 08:09: RN 00 Allergies, Adverse [...] Unknown e 15 mg e 15 mg 1-20 Reji ALVAREZ tablet tablet FeroSul 325 FeroSul 325 2018-04 Yes Breiman Unknown Unknown mg (65 mg mg (65 mg 05-09 Reji ALVAREZ iron) iron) tablet tablet levothyroxi [...] Unknown Unknown 200 mg 200 mg 05-09 Reji ALVAREZ tablet tablet Vital Signs Vital [...]
--- OUTSIDE RECORDS SUMMARY | 2019-04-20 12:14 | XMS REPORT ---
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, failure, RN [...] Lakesha pain d 05-09 11:38:00 Marge 09:05: [id number] Integument surgical Integument Active 2018-04 Lakesha wound 05-09 Sharon present 09:05: [id number] 00 Integument knowledge/s Integument Active 2018-04 Lakesha kill 05-09 Sharon deficit: pt 09:05: [id number] Nutrition knowledge/s Nutrition Resolve 2018-042019-04-01 Lakesha kill d 05-09 09:33:00 Marge deficit: pt 09:05: [id number] Nutrition nutritional Nutrition Resolve 2018-042019-03-18 Lakesha restriction d 05-09 11:38:00 Marge s 09:05: [id number] 00 Elimination ostomy Eliminatio Resolve 2018-042019-04-01 Lakesha present n d 05-09 09:33:00 Marge 09:05: [id number] 00 Neuro confusion Neuro/Emot Resolve 2018-042019-04-01 Lakesha present ion d 05-09 09:33:00 Marge 09:05: [id number] 00 Neuro anxiety Neuro/Emot Resolve 2018-042019-04-01 Lakesha present ion d 05-09 09:33:00 Sharon 09:05: [id number] 00 Neuro depressive Neuro/Emot Resolve 2018-042019-04-01 Lakesha feelings ion d 05-09 09:33:00 Sharon present 09:05: [id number] 00 Activity ADL Activity Resolve 2018-042019-03-25 Lakesha assistance d 05-09 09:30:00 Sharon required 09:05: [id number] 00 Activity self-care Activity Resolve 2018-042019-03-14 Lakesha deficit d 05-09 11:27:00 Sharon 09:05: [id number] Safety knowledge/s Safety Resolve 2018-042019-03-18 Lakesha kill d 05-09 11:38:00 Marge deficit: pt 09:05: [id number] 00 Safety fall risk Safety Resolve 2018-042019-03-18 Lakesha factor d 05-09 11:38:00 Sharon present 09:05: [id number] 00 Safety risk for Safety Resolve 2018-042019-03-18 Lakesha hospitaliza d 05-09 11:38:00 Sharon tion 09:05: [id number] 00 Medication oral med Meds Resolve 2018-042019-03-25 Lakesha assistance d 05-09 09:30:00 Sharon required 09:05: [id number] 00 Medication knowledge/s Meds Resolve 2018-042019-03-25 Lakesha kill d 05-09 09:30:00 Sharon deficit: pt 09:05: [id number] 00 Musculoskel transfer Musculoske Resolve 2018-042019-03-18 Lakesha etal assistance letal d 05-09 11:38:00 Sharon required 09:05: [id number] 00 Cath/Ostomy k/s Cath\Ostom Active 2018-04 Lakesha /GI deficit: y\GI Care 05-09 Sharon cath/ost/GI 09:05: [id number] care - pt 00 Nutrition nutritional Nutrition Resolve 2018-042019-04-01 Fabby restriction d 2-03 09:33:00 H[place]brand s 13:30: t 00 [id number] Safety knowledge/s Safety Resolve 2018-042019-04-01 Fabby kill d 2- 09:33:00 [place] deficit: pt 13:30: t 00 [id number] Safety risk for Safety Resolve 2018-042019-03-25 Susy hospitaliza d 2- 09:30:00 Malnoske tion 09:30: RN 00 Safety risk for Safety Resolve 2018-042019-04-01 Fabby hospitaliza d 2- 09:33:00 H[place]brand tion 13:00: t 00 [id number] Nutrition knowledge/s Nutrition Resolve 2018-042019-04-08 Fabby kill d 2- 09:30:00 H[place]brand deficit: pt 13:30: t 00 [id number] Nutrition nutritional Nutrition Resolve 2018-042019-04-08 Fabby restriction d 2- 09:30:00 H[place]brand s 13:30: t 00 [id number] Safety risk for Safety Resolve 2018-042019-04-12 Fabby hospitaliza d 2-17 08:09:00 H[place]brand tion 13:30: t 00 [id number] Elimination ostomy Eliminatio Active 2018-04 Susy present [...]
--- OUTSIDE RECORDS SUMMARY | 2019-04-20 12:14 | XMS REPORT | Continuity of Care Document ---
:1945 External Reference #:[id number] Author Name Erinn Mae MD (transmitted by agent of provider Татьяна Tracey) Address [address] , [address] [place] [address] Care Team Providers Name Role Phone Reji Dale MD - Family Medicine Care Team Information Safety Attendant Problems Description No Information Available Social History Type Date Description Comments Sex Unknown Tobacco Use Start: Unknown Patient has never smoked Smoking Status Reviewed: 04/19/19 Patient has never smoked Allergies, Adverse Reactions, Alerts Description No Known Drug Allergies Medications Active Medications SIG Qnty Indications Ordering Provider Date Miralax 17 grams by 200GMS Erinn Mae MD 04/19/2019 Powder mouth every day as needed Aripiprazole once daily Unknown 15mg Tablets Levothyroxine Sodium 1 by mouth Unknown 88mcg every day Tablets Meclizine HCL 2 tab daily Unknown 12.5mg Tablets Olanzapine 1 tab twice a Unknown 10mg Tablets day Tylenol 1 by mouth Unknown Tablets three times a day as needed for pain Zofran take 1 by mouth Unknown 4mg Tablets twice a day as needed for nausea KP Ferrous Sulfate twice a day. Unknown 325(65Fe) mg Tablets Ondansetron 8 mg as needed Unknown Magnesium 400 MG 1 tab daily Unknown Omeprazole 1 by mouth Unknown 20mg Capsules DR every day Immunizations Description No Information Available Vital Signs Date Vital Result Comment 04/19/2019 10:44am Height 64 inches 5'4" Weight 120.00 lb Heart Rate 96 /min BP Systolic Sitting 108 mmHg left arm reg cuff BP Diastolic Sitting 72 mmHg left arm reg cuff O2 % BldC Oximetry 96 % room air BMI (Body Mass Index) 20.6 kg/m2 03/11/2019 11:49am Height 64 inches 5'4" Weight 127.00 lb Heart Rate 111 /min BP Systolic Sitting 121 mmHg Right arm reg cuff BP Diastolic Sitting 80 mmHg Right arm reg cuff O2 % BldC Oximetry 99 % Room Air BMI (Body Mass Index) 21.8 kg/m2 Results Test Acquired Date Facility Test Result H/L Range Note Basic Metabolic 04/15/2019 [facility] Sodium 138 mmol/L Normal 135-[address] [place] [address] [phone] Potassium 4.3 mmol/L Normal 3.5-5.0 Chloride 106 mmol/L Normal 101-111 Co2 Carbon Dioxide 26 mmol/L Normal 22-32 Anion Gap 6 mmol/L Normal 2-11 Glucose 108 mg/dL High 70-100 Blood Urea Nitrogen 54 mg/dL High 6-24 Creatinine 1.93 mg/dL High 0.51-0.95 BUN/Creatinine Ratio 28.0 High 8-20 Calcium 8.6 mg/dL Normal 8.6-10.3 Egfr Non- 25.6 >60 Egfr 31.0 >60 1 Urinalysis Profile 04/15/2019 [facility] Urine Color Straw [address] [place] [address] [phone] Urine Appearance Clear Urine Specific Obion 1.004 Low 1.010-1.030 Urine pH 6.0 Normal 5-9 Urine Urobilinogen Negative Negative Urine Ketones Negative Negative Urine Protein Negative Negative Urine Leukocytes 1+ Abnormal Negative Urine Blood 1+ Abnormal Negative Urine Nitrite Negative Negative Urine Bilirubin Negative Negative Urine Glucose Negative Negative Urine White Blood Cell 1+(6-10/hpf) Abnormal Absent Urine Red Blood Cell Trace(0-2/hpf) Absent Urine Bacteria 2+ Abnormal Absent Laboratory test 04/15/2019 [facility] Total Protein 15 mg/dL finding [address] [place] [address] [phone] Creatinine Random Urine 18.55 mg/dL Urine Culture And 04/15/2019 [facility] Urine SEE RESULT [address] [place] [address] [phone] Renal Function 03/23/2019 [facility] Albumin 3.7 g/dL Normal 3.2-5 [address] [place] [address] [phone] Calcium 9.2 mg/dL Normal 8.6-10.3 4 Co2 Carbon Dioxide 25 mmol/L Normal 22-32 5 Chloride 106 mmol/L Normal 101-111 6 Glucose 108 mg/dL High 70-100 7 Phosphorus 4.4 mg/dL Normal 2.5-5.0 8 Potassium 5.2 mmol/L High 3.5-5.0 9 Sodium 138 mmol/L Normal 135-145 10 Blood Urea Nitrogen BUN 58 mg/dL High 6-24 11 Creatinine 03/23/2019 [facility] Creatinine 2.36 mg/dL High 0.51-0.95 [address] [place] [address] [phone] Egfr Non- 20.3 >60 Egfr 24.6 >60 12 Laboratory test 03/23/2019 [facility] Total Protein 22 mg/dL [address] [place] [address] [phone] Creatinine Random Urine 24.84 mg/dL 14 Renal Function 03/11/2019 [facility] Albumin 3.8 g/dL Normal 3.2-5.2 Panel [address] [place] [address] [phone] Calcium 8.9 mg/dL Normal 8.6-10.3 Co2 Carbon Dioxide 21 mmol/L Low 22-32 Chloride 103 mmol/L Normal 101-111 Glucose 89 mg/dL Normal 70-100 Phosphorus 5.1 mg/dL High 2.5-5.0 Potassium 5.4 mmol/L High 3.5-5.0 Sodium 135 mmol/L Normal 135-145 Blood Urea Nitrogen BUN 85 mg/dL High 6-24 Creatinine 03/11/2019 [facility] Creatinine 3.38 mg/dL High 0.51-0.95 [address] [place] [address] [phone] Egfr Non- 13.4 >60 Egfr 16.2 >60 15 Urinalysis Profile 03/11/2019 [facility] Urine Color Straw [address] [place] [address] [phone] Urine Appearance Cloudy Urine Specific Obion 1.009 Low 1.010-1.030 Urine pH 5.0 Normal 5-9 Urine Urobilinogen Negative Negative Urine Ketones Negative Negative Urine Protein 1+(30 mg/dL) Abnormal Negative Urine Leukocytes 3+ Abnormal Negative Urine Blood 3+ Abnormal Negative Urine Nitrite Negative Negative Urine Bilirubin Negative Negative Urine Glucose 1+(50 mg/dL) Abnormal Negative Urine White Blood Cell 3+(>20/hpf) Abnormal Absent Urine Red Blood Cell 3+(>10/hpf) Abnormal Absent Urine Bacteria 1+ Abnormal Absent Urine Squamous Epithelial Cell Present Abnormal Absent Laboratory test 03/11/2019 [facility] Total Protein 100 mg/dL finding [address] [place] [address] [phone] Creatinine Random Urine 28.61 mg/dL Urine Culture And 03/11/2019 [facility] Urine SEE RESULT [address] [place] [place] [address] [phone] CBC Auto Diff 01/14/2019 [facility] White Blood 7.3 10^3/uL Normal 3.5- [address] Count 10.8 [place] [address] [phone] Red Blood Count 2.41 10^6/uL Low 3.70-4.87 [...] Red Blood Cells % 0.0 Laboratory test 12/09/2018 [facility] Surgical SEE RESULT [address] [place] [address] [phone] 1 Because ethnic data is not always [...] 5 Kidney failure <15 (or dialysis) 2 SEE RESULT BELOW Name: RESENDEZNATACHA JAVIERADITI Tompkins : [address]: Erinn Mae MD Acct: [id number] Unit: [id number] AGE: 73 Location: LAB Re04/15/19 SEX: F Status: REG REF SPEC: [id number] FAITH: 04/15/19-[address]: Erinn Mae MD REQ: [id number] RECD: 04/15/194947 STATUS: [facility] DR: Reji Dale MD _ SOURCE: URINE SPDESC: ORDERED: Urine Culture Procedure Result Reported Site Urine Culture Final 04/17/19- 52 ML No growth of clinically significant organisms * ML - Main Lab . END OF REPORT DEPARTMENT OF PATHOLOGY, [address] [place] [address] Doni Rivero M.D. Director [facility] # [id number] 4 [id number] 5 [id number] 6 [id number] 7 [id number] 8 [id number] 9 [id number] 10 [id number] 11 [id number] 12 Because ethnic data is not always [...] 5 Kidney failure <15 (or dialysis) 13 [id number] 14 [id number] 15 Because ethnic data is not always [...] 5 Kidney failure <15 (or dialysis) 16 SEE RESULT BELOW Name: JESSICA RESENDEZ : [address]: Erinn Mae MD Acct: [id number] Unit: [id number] AGE: 73 Location: LAB Re03/11/19 SEX: F Status: REG REF SPEC: [id number] FAITH: 03/11/19-1240 [facility] DR: Erinn Mae MD REQ: [id number] RECD: 03/11/193293 STATUS: COMP _ SOURCE: URINE SPDESC: ORDERED: Urine Culture Procedure Result Reported Site Urine Culture Final 03/13/19- 1055 ML Organism 1 ADRIAN TROPICALIS [place] Count 10-25,000 (Moderate) CFU/ML * ML - Main Lab . END OF REPORT DEPARTMENT OF PATHOLOGY, [address] [place] [address] Doni Rivero M.D. Director [facility] # [id number] 17 SEE RESULT BELOW Name: JESSICA RESENDEZ : [address]: Estephania Malik MD Acct: [id number] Unit: [id number] AGE: 73 Location: [place] [address]-02 Re12/05/18 Dis: 12/11/18 SEX: F Status: DIS IN SPEC: [id number] FAITH: 12/09/18- [facility] DR: Dashawn Melvin DO REQ: [id number] RECD: 12/09/18 STATUS: ABDIRAHMAN FERNANDEZ DR: Tab [...] CONTINUED ON NEXT PAGE DEPARTMENT OF PATHOLOGY, [address] [place] [address] Doni Rivero M.D. Director [facility] # [id number] RUN DATE: 12/17/18 [facility] LAB LIVE PAGE 2 Patient: JESSICA RESENDEZ [id number] (Continued) POST-OPERATIVE DIAGNOSIS (Continued) POST-OPERATIVE DIAGNOSIS EGD: [...] 1546 END OF REPORT DEPARTMENT OF PATHOLOGY, [address] [place] [address] Doni Rivero M.D. 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 A41.9 Sepsis, Assoc,pc Desi, PROMOTION MANAGER unspecified Hospitalists organism N17.9 Acute kidney failure, unspecified N39.0 Urinary tract infection, site not specified D64.9 Anemia, unspecified Office Visit 12/10/2018 10:28a [facility] N17.9 Acute kidney Assoc,pc Shortle, PROMOTION MANAGER failure, Hospitalists unspecified N39.0 Urinary tract infection, site not specified D64.9 Anemia, unspecified Office Visit 12/09/2018 10:28a [facility] N17.9 Acute kidney Assoc,pc Shortle, PROMOTION MANAGER failure, Hospitalists unspecified N39.0 Urinary tract infection, site not specified D64.9 Anemia, unspecified Office Visit 12/08/2018 [facility] A41.9 Sepsis, 10:28a Assoc,pc Scott, PROMOTION MANAGER unspecified Hospitalists organism N17.9 Acute kidney failure, unspecified N39.0 Urinary tract infection, site not specified D64.9 Anemia, unspecified Office Visit 12/07/2018 [facility] A41.9 Sepsis, 10:27a Assoc,pc Scott, PROMOTION MANAGER unspecified Hospitalists organism N17.9 Acute kidney failure, unspecified D64.9 Anemia, unspecified Office Visit 12/06/2018 [facility] A41.9 Sepsis, 10:27a Assoc,pc Scott, PROMOTION MANAGER unspecified Hospitalists organism N17.9 Acute kidney failure, unspecified D64.9 Anemia, unspecified Office Visit 12/05/2018 [facility] Татьяна A41.9 Sepsis, 10:27a Assoc,pc Reeds, PROMOTION MANAGER unspecified Hospitalists organism N17.9 Acute kidney failure, unspecified D64.9 Anemia, unspecified Assessments Date Code Description Provider 04/19/2019 N18.4 Chronic kidney disease, stage 4 (severe) Erinn Mae MD 03/11/2019 N17.9 Acute kidney failure, unspecified Erinn Mae MD 03/11/2019 E87.2 Acidosis Erinn Mae MD 03/11/2019 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 Erinn Mae MD status 12/11/2018 A41.9 Sepsis, unspecified organism Nathalie Shortle, PROMOTION MANAGER 12/11/2018 N17.9 Acute kidney failure, unspecified Nathalie Shortle, PROMOTION MANAGER 12/11/2018 N39.0 Urinary tract infection, site not specified Nathalie Shortle, PROMOTION MANAGER 12/11/2018 D64.9 Anemia, unspecified Nathalie Shortle, PROMOTION MANAGER 12/10/2018 N17.9 Acute kidney failure, unspecified Nathalie Shortle, PROMOTION MANAGER 12/10/2018 N39.0 Urinary tract infection, site not specified Nathalie Shortle, PROMOTION MANAGER 12/10/2018 D64.9 Anemia, unspecified Nathalie Shortle, PROMOTION MANAGER 12/09/2018 N17.9 Acute kidney failure, unspecified Nathalie Shortle, PROMOTION MANAGER 12/09/2018 N39.0 Urinary tract infection, site not specified Nathalie Shortle, PROMOTION MANAGER 12/09/2018 D64.9 Anemia, unspecified Nathalie Shortle, PROMOTION MANAGER 12/08/2018 A41.9 Sepsis, unspecified organism Татьяна Scott, PROMOTION MANAGER 12/08/2018 N17.9 Acute kidney failure, unspecified Татьяна Scott, PROMOTION MANAGER 12/08/2018 N39.0 Urinary tract infection, site not specified Татьяна Scott, PROMOTION MANAGER 12/08/2018 D64.9 Anemia, unspecified Татьяна Reeds, PROMOTION MANAGER 12/07/2018 A41.9 Sepsis, unspecified organism Татьяна Reeds, PROMOTION MANAGER 12/07/2018 N17.9 Acute kidney failure, unspecified Татьяна Reeds, PROMOTION MANAGER 12/07/2018 D64.9 Anemia, unspecified Татьяна Reeds, PROMOTION MANAGER 12/06/2018 A41.9 Sepsis, unspecified organism Татьяна Scott, PROMOTION MANAGER 12/06/2018 N17.9 Acute kidney failure, unspecified Татьяна Reeds, PROMOTION MANAGER 12/06/2018 D64.9 Anemia, unspecified Татьяна Reeds, PROMOTION MANAGER 12/05/2018 A41.9 Sepsis, unspecified organism Татьяна Reeds, PROMOTION MANAGER 12/05/2018 N17.9 Acute kidney failure, unspecified Татьяна Reeds, PROMOTION MANAGER 12/05/2018 D64.9 Anemia, unspecified Татьяна Scott, PROMOTION MANAGER Plan of Treatment Future Appointment(s):06/03/2019 11:30 am - Erinn Mae MD at [facility] [id number] /31/2019 - Erinn Mae MDN18.4 Chronic kidney disease, stage 4 (severe)New Xrays:US Renal Complete, Ordered: 04/19/19Follow up:6 WEEKS Functional Status Description No Information Available Mental Status Description No Information Available Referrals Description No Information Available
--- OUTSIDE RECORDS SUMMARY | 2019-04-20 12:14 | XMS REPORT ---
:1945 Author Organization [facility] Care Team Providers Name Role Phone Unavailable [...] Lakesha pain d 05-09 11:38:00 Marge 09:05: [id number] 00 Integument surgical Integument Active 2018-04 Lakesha wound 05-09 [place] present 09:05: [id number] 00 Integument knowledge/s Integument Active 2018-04 Lakesha kill 05-09 [place] deficit: pt 09:05: [id number] 00 Nutrition knowledge/s Nutrition Resolve 2018-042019-04-01 Lakesha kill d 05-09 09:33:00 Marge deficit: pt 09:05: [id number] 00 Nutrition nutritional Nutrition Resolve 2018-042019-03-18 Lakesha restriction d 05-09 11:38:00 Marge s 09:05: [id number] 00 Elimination ostomy Eliminatio Resolve 2018-042019-04-01 Lakesha present n d 05-09 09:33:00 [place] 09:05: [id number] 00 Neuro confusion Neuro/Emot Resolve 2018-042019-04-01 Lakesha present ion d 05-09 09:33:00 Marge 09:05: [id number] 00 Neuro anxiety Neuro/Emot Resolve 2018-042019-04-01 Lakesha present ion d 05-09 09:33:00 Marge 09:05: [id number] 00 Neuro depressive Neuro/Emot Resolve 2018-042019-04-01 Lakesha feelings ion d 05-09 09:33:00 Marge present 09:05: [id number] 00 Activity ADL Activity Resolve 2018-042019-03-25 Lakesha assistance d 05-09 09:30:00 Marge required 09:05: [id number] 00 Activity self-care Activity Resolve 2018-042019-03-14 Lakesha deficit d 05-09 11:27:00 [place] 09:05: [id number] 00 Safety knowledge/s Safety Resolve 2018-042019-03-18 Lakesha kill d 05-09 11:38:00 Marge deficit: pt 09:05: [id number] 00 Safety fall risk Safety Resolve 2018-042019-03-18 Lakesha factor d 05-09 11:38:00 [place] present 09:05: [id number] 00 Safety risk for Safety Resolve 2018-042019-03-18 Lakesha hospitaliza d 05-09 11:38:00 [place] tion 09:05: [id number] 00 Medication oral med Meds Resolve 2018-042019-03-25 Lakesha assistance d 05-09 09:30:00 [place] required 09:05: [id number] Medication knowledge/s Meds Resolve 2018-042019-03-25 Lakesha kill d 05-09 09:30:00 Marge deficit: pt 09:05: [id number] 00 Musculoskel transfer Musculoske Resolve 2018-042019-03-18 Lakesha etal assistance letal d 05-09 11:38:00 [place] required 09:05: [id number] 00 Cath/Ostomy k/s Cath\Ostom Active 2018-04 Lakesha /GI deficit: y\GI Care 05-09 [place] cath/ost/GI 09:05: [id number] care - pt 00 Nutrition nutritional Nutrition Resolve 2018-042019-04-01 Fabby restriction d 2-03 09:33:00 [place] s 13:30: t 00 [id number] Safety knowledge/s Safety Resolve 2018-042019-04-01 [place] kill d 2- 09:33:00 [place] deficit: pt 13:30: t 00 [id number] Safety risk for Safety Resolve 2018-042019-03-25 Susy hospitaliza d 2- 09:30:00 Malnoske tion 09:30: RN 00 Safety risk for Safety Resolve 2018-042019-04-01 Fabby hospitaliza d 2- 09:33:00 [place] tion 13:00: t 00 [id number] Nutrition knowledge/s Nutrition Resolve 2018-042019-04-08 Fabby kill d 2- 09:30:00 [place] deficit: pt 13:30: t 00 [id number] Nutrition nutritional Nutrition Resolve 2018-042019-04-08 [place] restriction d 2- 09:30:00 [place] s 13:30: t 00 [id number] Safety risk for Safety Resolve 2018-042019-04-12 Fabby hospitaliza d 2-17 08:09:00 [place] tion 13:30: t 00 [id number] Elimination ostomy Eliminatio Active 2018-04 Susy present [...] Observation Time Observation Value Comments SYSTOLIC mm[Hg] 2019-03-09 18:08:57 128 mm[Hg] mm[Hg] Method: Stand DIASTOLIC mm[Hg] 2019-03-09 18:08:57 74 mm[Hg] mm[Hg] Method: Stand RESP RATE 2019-04-19 18:09:38 16 /min /min Procedures This patient has no known procedures. Results This patient has no known results.
--- OUTSIDE RECORDS SUMMARY | 2019-04-20 12:15 | XMS REPORT ---
:1945 Author Organization [facility] Care Team Providers Name Role Phone Unavailable Unavailable Unavailable Problems Condition Condition Condition Status Onset Resolution Last Treating Comments Name Details Category Date Date Treatment Clinician Date Pain frequent Pain Mgmt Resolve 2018-042019-03-18 Lakesha pain d 05-09 11:38:00 Marge 09:05: [id number] 00 Integument surgical Integument Active 2018-04 Lakesha wound 05-09 [place] present 09:05: [id number] 00 Integument knowledge/s Integument Active 2018-04 Lakesha kill 05-09 [place] deficit: pt 09:05: [id number] 00 Nutrition knowledge/s Nutrition Active 2018-04 Lakesha kill 05-09 [place] deficit: pt 09:05: [id number] 00 Nutrition nutritional Nutrition Resolve 2018-042019-03-18 Lakesha restriction d 05-09 11:38:00 [place] s 09:05: [id number] 00 Elimination ostomy Eliminatio Active 2018-04 Lakesha present n 05-09 [place] 09:05: [id number] 00 Neuro confusion Neuro/Emot Active 2018-04 Lakesha present ion 05-09 [place] 09:05: [id number] 00 Neuro anxiety Neuro/Emot Active 2018-04 Lakesha present ion 05-09 [place] 09:05: [id number] 00 Neuro depressive Neuro/Emot Active 2018-04 Lakesha feelings ion 05-09 [place] present 09:05: [id number] 00 Activity ADL Activity Resolve 2018-042019-03-25 Lakesha assistance d 05-09 09:30:00 [place] required 09:05: [id number] 00 Activity self-care Activity Resolve 2018-042019-03-14 Lakesha deficit d 05-09 11:27:00 [place] 09:05: [id number] Safety knowledge/s Safety Resolve 2018-042019-03-18 Lakesha kill d 05-09 11:38:00 [place] deficit: pt 09:05: [id number] 00 Safety fall risk Safety Resolve 2018-042019-03-18 Lakesha factor d 05-09 11:38:00 [place] present 09:05: [id number] Safety risk for Safety Resolve 2018-042019-03-18 Lakesha hospitaliza d 05-09 11:38:00 [place] tion 09:05: [id number] 00 Medication oral med Meds Resolve 2018-042019-03-25 Lakesha assistance d 05-09 09:30:00 [place] required 09:05: [id number] 00 Medication knowledge/s Meds Resolve 2018-042019-03-25 Lakesha kill d 05-09 09:30:00 [place] deficit: pt 09:05: [id number] 00 Musculoskel transfer Musculoske Resolve 2018-042019-03-18 Lakesha etal assistance letal d 05-09 11:38:00 [place] required 09:05: [id number] 00 Cath/Ostomy k/s Cath\Ostom Active 2018-04 Lakesha /GI deficit: y\GI Care 05-09 [place] cath/ost/GI 09:05: [id number] care - pt 00 Nutrition nutritional Nutrition Active 2018-04 Fabby restriction 2- Hillebrand s 13:30: t 00 [id number] Safety knowledge/s Safety Active 2018-04 Fabby kill - H[place]brand deficit: pt 13:30: t 00 [id number] Safety risk for Safety Resolve 2018-042019-03-25 Susy hospitaliza d 05-26 09:30:00 Malnoske tion 09:30: RN 00 Safety risk for Safety Active 2018-04 Fabby hospitaliza 2- Hillebrand tion 13:00: t 00 [id number] Allergies, Adverse Reactions, Alerts Allergy Allergy Status [...] Unknown e 15 mg e 15 mg 05-09 Reji ALVAREZ tablet tablet FeroSul 325 FeroSul [...] 74 mm[Hg] mm[Hg] Method: Stand RESP RATE 2019-03-25 18:09:13 16 /min /min Procedures This patient has no known procedures. Results This patient has no known results.
--- OUTSIDE RECORDS SUMMARY | 2019-04-20 12:15 | XMS REPORT ---
:1945 Author Organization [facility] Care Team Providers Name Role Phone Unavailable Unavailable Unavailable Problems Condition Condition Condition Status Onset Resolution Last Treating Comments Name Details Category Date Date Treatment Clinician Date Pain frequent Pain Mgmt Resolve 2018-042019-03-18 Lakesha pain d 05-09 11:38:00 [place] 09:05: [id number] 00 Integument surgical Integument Active 2018-04 Lakesha wound 05-09 [place] present 09:05: [id number] 00 Integument knowledge/s Integument Active 2018-04 Lakesha kill 05-09 [place] deficit: pt 09:05: [id number] 00 Nutrition knowledge/s Nutrition Active 2018-04 Lakesha kill 05-09 [place] deficit: pt 09:05: [id number] 00 Nutrition nutritional Nutrition Resolve 2018-042019-03-18 Lakesha restriction d 05-09 11:38:00 [place] s 09:05: [id number] 00 Elimination ostomy Eliminatio Active 2018-04 Lakesah present n 05-09 [place] 09:05: [id number] 00 Neuro confusion Neuro/Emot Active 2018-04 Lakesha present ion 05-09 [place] 09:05: [id number] 00 Neuro anxiety Neuro/Emot Active 2018-04 Lakesha present ion 05-09 [place] 09:05: [id number] 00 Neuro depressive Neuro/Emot Active 2018-04 Lakesha feelings ion 05-09 [place] present 09:05: [id number] 00 Activity ADL Activity Resolve 2018-042019-03-25 Lakesha assistance d 05-09 09:30:00 [place] required 09:05: [id number] 00 Activity self-care Activity Resolve 2018-042019-03-14 Lakesha deficit d 05-09 11:27:00 [place] 09:05: [id number] 00 Safety knowledge/s Safety Resolve 2018-042019-03-18 Lakesha kill d 05-09 11:38:00 [place] deficit: pt 09:05: [id number] 00 Safety fall risk Safety Resolve 2018-042019-03-18 Lakesha factor d 05-09 11:38:00 [place] present 09:05: [id number] Safety risk for Safety Resolve 2018-042019-03-18 Lakesha hospitaliza d 05-09 11:38:00 [place] tion 09:05: [id number] 00 Medication oral med Meds Resolve 2018-042019-03-25 Lakesha assistance d 05-09 09:30:00 [place] required 09:05: [id number] 00 Medication knowledge/s Meds Resolve 2018-042019-03-25 Lakesha kill d 05-09 09:30:00 [place] deficit: pt 09:05: [id number] 00 Musculoskel transfer Musculoske Resolve 2018-042019-03-18 Lakesha etal assistance letal d 05-09 11:38:00 [place] required 09:05: [id number] 00 Cath/Ostomy k/s Cath\Ostom Active 2018-04 Lakesha /GI deficit: y\GI Care 05-09 [place] cath/ost/GI 09:05: [id number] care - pt 00 Nutrition nutritional Nutrition Active 2018-04 Susy restriction 05-26 [place] s 09:30: RN 00 Safety risk for Safety Resolve 2018-042019-03-25 Susy hospitaliza d 05-26 09:30:00 [place] tion 09:30: RN 00 Allergies, Adverse Reactions, Alerts Allergy [...] Observation Time Observation Value Comments SYSTOLIC mm[Hg] 2019-03-25 18:09:13 118 mm[Hg] mm[Hg] Method: Sit SYSTOLIC mm[Hg] 2019-03-09 18:08:57 128 mm[Hg] mm[Hg] Method: Stand DIASTOLIC mm[Hg] 2019-03-25 18:09:13 74 mm[Hg] mm[Hg] Method: Sit DIASTOLIC mm[Hg] 2019-03-09 18:08:57 74 mm[Hg] mm[Hg] Method: Stand PULSE 2019-03-25 18:09:13 86 /min /min RESP RATE 2019-03-25 18:09:13 16 /min /min TEMP 2019-03-25 18:09:13 98.6 [degF] Procedures This patient has no known procedures. Results This patient has no known results.
--- OUTSIDE RECORDS SUMMARY | 2019-04-20 12:15 | XMS REPORT ---
:1945 Author Organization [facility] Care Team Providers Name Role Phone Unavailable Unavailable Unavailable Problems Condition Condition Condition Status Onset Resolution Last Treating Comments Name Details Category Date Date Treatment Clinician Date Pain frequent Pain Mgmt Resolve 2018-042019-03-18 [place] pain d 05-09 11:38:00 [place] 09:05: [id number] 00 Integument surgical Integument Active 2018-04 [place] wound 05-09 [place] present 09:05: [id number] 00 Integument knowledge/s Integument Active 2018-04 [place] kill 05-09 [place] deficit: pt 09:05: [id number] 00 Nutrition knowledge/s Nutrition Active 2018-04 [place] kill 05-09 [place] deficit: pt 09:05: [id number] 00 Nutrition nutritional Nutrition Resolve 2018-042019-03-18 [place]ha restriction d 05-09 11:38:00 Marge s 09:05: [id number] 00 Elimination ostomy Eliminatio Active 2018-04 [place]ha present n 05-09 [place] 09:05: [id number] 00 Neuro confusion Neuro/Emot Active 2018-04 [place]ha present ion 05-09 [place] 09:05: [id number] 00 Neuro anxiety Neuro/Emot Active 2018-04 [place] present ion 05-09 [place] 09:05: [id number] 00 Neuro depressive Neuro/Emot Active 2018-04 [place] feelings ion 05-09 [place] present 09:05: [id number] 00 Activity ADL Activity Active 2018-04 [place] assistance 05-09 [place] required 09:05: [id number] 00 Activity self-care Activity Resolve 2018-042019-03-14 [place] deficit d 05-09 11:27:00 [place] 09:05: [id number] 00 Safety knowledge/s Safety Resolve 2018-042019-03-18 [place] kill d 05-09 11:38:00 [place] deficit: pt 09:05: [id number] 00 Safety fall risk Safety Resolve 2018-042019-03-18 [place]ha factor d 05-09 11:38:00 [place] present 09:05: [id number] Safety risk for Safety Resolve 2018-042019-03-18 [place]ha hospitaliza d 05-09 11:38:00 [place] tion 09:05: [id number] 00 Medication oral med Meds Active 2018-04 [place] assistance 05-09 [place] required 09:05: [id number] 00 Medication knowledge/s Meds Active 2018-04 [place] kill 05-09 [place] deficit: pt 09:05: [id number] 00 Musculoskel transfer Musculoske Resolve 2018-042019-03-18 [facility] etal assistance letal d 05-09 11:38:00 [place] required 09:05: [id number] 00 Cath/Ostomy k/s Cath\Ostom Active 2018-04 [place]ha /GI deficit: y\GI Care 05-09 [place] cath/ost/GI 09:05: [id number] care - pt 00 Allergies, Adverse Reactions, Alerts Allergy Allergy [...] Breiman Unknown Unknown 10 mg 10 mg - Reji ALVAREZ tablet tablet omeprazole omeprazole 2018-04 Yes Breiman Unknown Unknown magnesium magnesium -20 Reji ALVAREZ 20 mg 20 mg tablet,snehal tablet,snehal yed release yed release Tylenol 325 Tylenol 325 2018-04 Yes Breiman Unknown Unknown mg tablet mg tablet - Reji ALVAREZ Zofran 4 mg Zofran 4 mg 2018-04 Yes Breiman Unknown Unknown tablet tablet 05-09 Reji ALVAREZ chlorhexidi chlorhexidi 2018-04- Yes Breiman Unknown Unknown ne ne 05-09 Reji ALVAREZ gluconate gluconate 0.12 % 0.12 % mouthwash mouthwash fluconazole fluconazole 2018-04 Yes Breiman Unknown Unknown 200 mg 200 mg - ,Reji tablet tablet Vital Signs Vital Name Observation Time Observation Value Comments SYSTOLIC mm[Hg] 2019-03-18 18:09:06 112 mm[Hg] mm[Hg] Method: Sit SYSTOLIC mm[Hg] 2019-03-09 18:08:57 128 mm[Hg] mm[Hg] Method: Stand DIASTOLIC mm[Hg] 2019-03-18 18:09:06 78 mm[Hg] mm[Hg] Method: Sit DIASTOLIC mm[Hg] 2019-03-09 18:08:57 74 mm[Hg] mm[Hg] Method: Stand PULSE 2019-03-18 18:09:06 86 /min /min RESP RATE 2019-03-18 18:09:06 16 /min /min TEMP 2019-03-18 18:09:06 97.8 [degF] Procedures This patient has no known procedures. Results This patient has no known results.
--- OUTSIDE RECORDS SUMMARY | 2019-04-20 12:15 | XMS REPORT ---
:1945 Author Organization [facility] Care Team Providers Name Role Phone Unavailable [...] Resolve 2018-042019-03-18 [place]ha pain d 05-09 11:38:00 [place] 09:05: [id number] 00 Integument surgical Integument Active 2018-04 [place] wound 05-09 [place] present 09:05: [id number] 00 Integument knowledge/s Integument Active 2018-04 [place] kill 05-09 [place] deficit: pt 09:05: [id number] 00 Nutrition knowledge/s Nutrition Resolve 2018-042019-04-01 [place] kill d 05-09 09:33:00 [place] deficit: pt 09:05: [id number] 00 Nutrition nutritional Nutrition Resolve 2018-042019-03-18 [place] restriction d 05-09 11:38:00 Marge s 09:05: [id number] 00 Elimination ostomy Eliminatio Resolve 2018-042019-04-01 [place] present n d 05-09 09:33:00 [place] 09:05: [id number] 00 Neuro confusion Neuro/Emot Resolve 2018-042019-04-01 [place] present ion d 05-09 09:33:00 [place] 09:05: [id number] 00 Neuro anxiety Neuro/Emot Resolve 2018-042019-04-01 [place] present ion d 05-09 09:33:00 [place] 09:05: [id number] 00 Neuro depressive Neuro/Emot Resolve 2018-042019-04-01 [place] feelings ion d 05-09 09:33:00 [place] present 09:05: [id number] 00 Activity ADL Activity Resolve 2018-042019-03-25 [place] assistance d 05-09 09:30:00 [place] required 09:05: [id number] 00 Activity self-care Activity Resolve 2018-042019-03-14 [place] deficit d 05-09 11:27:00 [place] 09:05: [id number] 00 Safety knowledge/s Safety Resolve 2018-042019-03-18 [place] kill d 05-09 11:38:00 [place] deficit: pt 09:05: [id number] 00 Safety fall risk Safety Resolve 2018-042019-03-18 [place] factor d 05-09 11:38:00 [place] present 09:05: [id number] 00 Safety risk for Safety Resolve 2018-042019-03-18 [place] hospitaliza d 05-09 11:38:00 [place] tion 09:05: [id number] 00 Medication oral med Meds Resolve 2018-042019-03-25 [place] assistance d 05-09 09:30:00 [place] required 09:05: [id number] 00 Medication knowledge/s Meds Resolve 2018-042019-03-25 [place] kill d 05-09 09:30:00 [place] deficit: pt 09:05: [id number] 00 Musculoskel transfer Musculoske Resolve 2018-042019-03-18 [place] etal assistance letal d 05-09 11:38:00 [place] required 09:05: [id number] 00 Cath/Ostomy k/s Cath\Ostom Active 2018-04 [place] /GI deficit: y\GI Care 05-09 [place] cath/ost/GI 09:05: [id number] care - pt 00 Nutrition nutritional Nutrition Resolve 2018-042019-04-01 Fabby saleem d 05-23 09:33:00 [place] s 13:30: t 00 [id number] Safety knowledge/s Safety Resolve 2018-042019-04-01 Fabby kline d 05-23 09:33:00 [place] deficit: pt 13:30: t 00 [id number] Safety risk for Safety Resolve 2018-042019-03-25 Susy herman d 05-26 09:30:00 [place] tion 09:30: RN 00 Safety risk for Safety Resolve 2018-042019-04-01 Fabby renee 05-30 09:33:00 [place] tion 13:00: t 00 [id number] Allergies, Adverse Reactions, Alerts Allergy Allergy Status [...] Breiman Unknown Unknown oxide 400 oxide 400 - Reji ALVAREZ mg (241.3 mg (241.3 mg mg magnesium) magnesium) tablet tablet meclizine meclizine 2018-04 Yes Breiman Unknown Unknown 25 mg 25 mg - Reji ALVAREZ tablet tablet polyethylen polyethylen 2018-04 Yes Breiman Unknown Unknown e glycol e glycol -20 Reji ALVAREZ 3350 17 3350 17 gram/dose gram/dose oral powder oral powder OLANZapine OLANZapine 2018-04 Yes Breiman Unknown Unknown 10 mg 10 mg -20 Reji ALVAREZ tablet tablet omeprazole omeprazole 2018-04 [...] Observation Time Observation Value Comments SYSTOLIC mm[Hg] 2019-04-01 18:09:20 114 mm[Hg] mm[Hg] Method: Sit SYSTOLIC mm[Hg] 2019-03-09 18:08:57 128 mm[Hg] mm[Hg] Method: Stand DIASTOLIC mm[Hg] 2019-04-01 18:09:20 76 mm[Hg] mm[Hg] Method: Sit DIASTOLIC mm[Hg] 2019-03-09 18:08:57 74 mm[Hg] mm[Hg] Method: Stand PULSE 2019-04-01 18:09:20 89 /min /min RESP RATE 2019-04-01 18:09:20 16 /min /min TEMP 2019-04-01 18:09:20 98.3 [degF] Procedures This patient has no known procedures. Results This patient has no known results.
--- OUTSIDE RECORDS SUMMARY | 2019-04-20 12:15 | XMS REPORT ---
:1945 Author Organization [facility] Care Team Providers Name Role Phone Unavailable [...] Resolve 2018-042019-03-18 [place] pain d 05-09 11:38:00 [place] 09:05: [id number] 00 Integument surgical Integument Active 2018-04 [place] wound 05-09 [place] present 09:05: [id number] 00 Integument knowledge/s Integument Active 2018-04 [place] kill 05-09 [place] deficit: pt 09:05: [id number] 00 Nutrition knowledge/s Nutrition Resolve 2018-042019-04-01 [place] kill d 05-09 09:33:00 [place] deficit: pt 09:05: [id number] 00 Nutrition nutritional Nutrition Resolve 2018-042019-03-18 [place] restriction d 05-09 11:38:00 Marge s 09:05: [id number] 00 Elimination ostomy Eliminatio Resolve 2018-042019-04-01 [place] present n d 05-09 09:33:00 [place] 09:05: [id number] 00 Neuro confusion Neuro/Emot Resolve 2018-042019-04-01 [place] present ion d 05-09 09:33:00 [place] 09:05: [id number] 00 Neuro anxiety Neuro/Emot Resolve 2018-042019-04-01 [place] present ion d 05-09 09:33:00 [place] 09:05: [id number] 00 Neuro depressive Neuro/Emot Resolve 2018-042019-04-01 [place] feelings ion d 05-09 09:33:00 [place] present 09:05: [id number] 00 Activity ADL Activity Resolve 2018-042019-03-25 [place] assistance d 05-09 09:30:00 [place] required 09:05: [id number] 00 Activity self-care Activity Resolve 2018-042019-03-14 [place] deficit d 05-09 11:27:00 [place] 09:05: [id number] 00 Safety knowledge/s Safety Resolve 2018-042019-03-18 [place] kill d 05-09 11:38:00 [place] deficit: pt 09:05: [id number] 00 Safety fall risk Safety Resolve 2018-042019-03-18 [place]ha factor d 05-09 11:38:00 [place] present 09:05: [id number] 00 Safety risk for Safety Resolve 2018-042019-03-18 [place]ha hospitaliza d 05-09 11:38:00 Marge tion 09:05: [id number] 00 Medication oral med Meds Resolve 2018-042019-03-25 [place] assistance d 05-09 09:30:00 [place] required 09:05: [id number] 00 Medication knowledge/s Meds Resolve 2018-042019-03-25 [place] kill d 05-09 09:30:00 [place] deficit: pt 09:05: [id number] 00 Musculoskel transfer Musculoske Resolve 2018-042019-03-18 [place] etal assistance letal d 05-09 11:38:00 [place] required 09:05: [id number] 00 Cath/Ostomy k/s Cath\Ostom Active 2018-04 [place] /GI deficit: y\GI Care 05-09 [place] cath/ost/GI 09:05: [id number] care - pt 00 Nutrition nutritional Nutrition Resolve 2018-042019-04-01 Fabby saleem d 05-23 09:33:00 [place] s 13:30: t 00 [id number] Safety knowledge/s Safety Resolve 2018-042019-04-01 Fabby kline d 05-23 09:33:00 [place] deficit: pt 13:30: t 00 [id number] Safety risk for Safety Resolve 2018-042019-03-25 Susy herman d 05-26 09:30:00 [place] tion 09:30: RN 00 Safety risk for Safety Resolve 2018-042019-04-01 Fabby renee 05-30 09:33:00 [place] tion 13:00: t 00 [id number] Allergies, Adverse Reactions, Alerts Allergy Allergy Status [...]
--- OUTSIDE RECORDS SUMMARY | 2019-04-20 12:15 | XMS REPORT ---
:1945 Author Organization [facility] [facility] Care Team Providers Name Role Phone Unavailable Unavailable Unavailable Problems Condition Condition Condition Status Onset Resolution Last Treating Comments Name Details Category Date Date Treatment Clinician Date Pain frequent Pain Mgmt Active 2018-04 [place]ha pain 05-09 [place] 09:05: [id number] 00 Integument surgical Integument Active 2018-04 [place] wound 05-09 [place] present 09:05: [id number] 00 Integument knowledge/s Integument Active 2018-04 [place] kill 05-09 [place] deficit: pt 09:05: [id number] 00 Nutrition knowledge/s Nutrition Active 2018-04 [place] kill 05-09 [place] deficit: pt 09:05: [id number] 00 Nutrition nutritional Nutrition Active 2018-04 [place] restriction 05-09 [place] s 09:05: [id number] 00 Elimination ostomy Eliminatio Active 2018-04 [place] present n 05-09 [place] 09:05: [id number] 00 Neuro confusion Neuro/Emot Active 2018-04 [place] present ion 05-09 [place] 09:05: [id number] 00 Neuro anxiety Neuro/Emot Active 2018-04 [place] present ion 05-09 [place] 09:05: [id number] 00 Neuro depressive Neuro/Emot Active 2018-04 [place] feelings ion 05-09 [place] present 09:05: [id number] 00 Activity ADL Activity Active 2018-04 [place] assistance 05-09 [place] required 09:05: [id number] 00 Activity self-care Activity Resolve 2018-042019-03-14 [place] deficit d 05-09 11:27:00 [place] 09:05: [id number] 00 Safety knowledge/s Safety Active 2018-04 [place]ha kill 05-09 [place] deficit: pt 09:05: [id number] 00 Safety fall risk Safety Active 2018-04 [place]ha factor 05-09 [place] present 09:05: [id number] 00 Safety risk for Safety Active 2018-04 [place]ha hospitaliza 05-09 [place] tion 09:05: [id number] 00 Medication oral med Meds Active 2018-04 [place] assistance 05-09 [place] required 09:05: [id number] 00 Medication knowledge/s Meds Active 2018-04 [place] kill 05-09 [place] deficit: pt 09:05: [id number] 00 Musculoskel transfer Musculoske Active 2018-04 [facility] etal assistance letal 05-09 [place] required 09:05: [id number] 00 Cath/Ostomy k/s Cath\Ostom Active 2018-04 [place] /GI deficit: y\GI Care 05-09 [place] cath/ost/GI 09:05: [id number] care - pt 00 Allergies, Adverse Reactions, [...]
--- OUTSIDE RECORDS SUMMARY | 2019-04-20 12:15 | XMS REPORT ---
:1945 Author Organization [facility] Care Team Providers Name Role Phone Unavailable Unavailable Unavailable Problems Condition Condition Condition Status Onset Resolution Last Treating Comments Name Details Category Date Date Treatment Clinician Date Pain frequent Pain Mgmt Resolve 2018-042019-03-18 [place] pain d 05-09 11:38:00 [place] 09:05: [id number] 00 Integument surgical Integument Active 2018-04 [place] wound 05-09 Marge present 09:05: [id number] 00 Integument knowledge/s Integument Active 2018-04 [place] kill 05-09 [place] deficit: pt 09:05: [id number] 00 Nutrition knowledge/s Nutrition Active 2018-04 [place] kill 05-09 [place] deficit: pt 09:05: [id number] 00 Nutrition nutritional Nutrition Resolve 2018-042019-03-18 [place] restriction d 05-09 11:38:00 Marge s 09:05: [id number] 00 Elimination ostomy Eliminatio Active 2018-04 [place] present n 05-09 [place] 09:05: [id number] 00 Neuro confusion Neuro/Emot Active 2018-04 [place]ha present ion 05-09 [place] 09:05: [id number] 00 Neuro anxiety Neuro/Emot Active 2018-04 [place] present ion 05-09 [place] 09:05: [id number] 00 Neuro depressive Neuro/Emot Active 2018-04 [place] feelings ion 05-09 [place] present 09:05: [id number] 00 Activity ADL Activity Active 2018-04 [place] assistance 05-09 [place] required 09:05: [id number] 00 Activity self-care Activity Resolve 2018-042019-03-14 [place] deficit d 05-09 11:27:00 [place] 09:05: [id number] 00 Safety knowledge/s Safety Resolve 2018-042019-03-18 [place] kill d 05-09 11:38:00 [place] deficit: pt 09:05: [id number] 00 Safety fall risk Safety Resolve 2018-042019-03-18 [place]ha factor d 05-09 11:38:00 [place] present 09:05: [id number] 00 Safety risk for Safety Resolve 2018-042019-03-18 [place] hospitaliza d 05-09 11:38:00 [place] tion 09:05: [id number] 00 Medication oral med Meds Resolve 2018-042019-03-25 [place] assistance d 05-09 09:30:00 [place] required 09:05: [id number] 00 Medication knowledge/s Meds Resolve 2018-042019-03-25 [place] kill d 05-09 09:30:00 [place] deficit: pt 09:05: [id number] 00 Musculoskel transfer Musculoske Resolve 2018-042019-03-18 [place] etal assistance letal d 05-09 11:38:00 [place] required 09:05: [id number] 00 Cath/Ostomy k/s Cath\Ostom Active 2018-04 [place] /GI deficit: y\GI Care 05-09 [place] cath/ost/GI 09:05: [id number] care - pt 00 Safety risk for Safety Active 2018-04 Susy hospitaliza 05-26 [place] tion 09:30: RN 00 Allergies, Adverse [...] mg magnesium) magnesium) tablet tablet meclizine meclizine 2019-1 Yes Breiman Unknown Unknown 25 mg 25 mg 05-09 Reji ALVAREZ tablet tablet polyethylen polyethylen 2018-04 Yes Breiman Unknown Unknown e glycol e glycol 05-09 ,Reji 3350 17 3350 17 gram/dose gram/dose oral powder oral powder OLANZapine OLANZapine 2018-04 Yes Breiman Unknown Unknown 10 mg 10 mg 05-09 ,Reji tablet tablet omeprazole omeprazole 2018-04 Yes Breiman Unknown Unknown magnesium magnesium 05-09 ,Reji 20 mg 20 mg tablet,snehal tablet,snehal yed [...]
--- OUTSIDE RECORDS SUMMARY | 2019-04-20 12:15 | XMS REPORT ---
:1945 Author Organization [facility] [place] Care Team Providers Name Role Phone Unavailable [...] Lakesha pain d 05-09 11:38:00 [place] 09:05: [id number] 00 Integument surgical Integument Active 2018-04 [place] wound 05-09 [place] present 09:05: [id number] 00 Integument knowledge/s Integument Active 2018-04 [place] kill 05-09 [place] deficit: pt 09:05: [id number] 00 Nutrition knowledge/s Nutrition Active 2018-04 [place] kill 05-09 [place] deficit: pt 09:05: [id number] 00 Nutrition nutritional Nutrition Resolve 2018-042019-03-18 [place] restriction d 05-09 11:38:00 Marge s 09:05: [id number] 00 Elimination ostomy Eliminatio Active 2018-04 [place] present n 05-09 [place] 09:05: [id number] 00 Neuro confusion Neuro/Emot Active 2018-04 [place] present ion 05-09 [place] 09:05: [id number] 00 Neuro anxiety Neuro/Emot Active 2018-04 [place] present ion 05-09 [place] 09:05: [id number] 00 Neuro depressive Neuro/Emot Active 2018-04 [place] feelings ion 05-09 [place] present 09:05: [id number] 00 Activity ADL Activity Resolve 2018-042019-03-25 [place] assistance d 05-09 09:30:00 [place] required 09:05: [id number] 00 Activity self-care Activity Resolve 2018-042019-03-14 [place] deficit d 05-09 11:27:00 [place] 09:05: [id number] 00 Safety knowledge/s Safety Resolve 2018-042019-03-18 [place] kill d 05-09 11:38:00 [place] deficit: pt 09:05: [id number] 00 Safety fall risk Safety Resolve 2018-042019-03-18 [place] factor d 05-09 11:38:00 [place] present 09:05: [id number] 00 Safety risk for Safety Resolve 2018-042019-03-18 [place] hospitaliza d 05-09 11:38:00 [place] tion 09:05: [id number] 00 Medication oral med Meds Resolve 2018-042019-03-25 [place] assistance d 05-09 09:30:00 [place] required 09:05: [id number] 00 Medication knowledge/s Meds Resolve 2018-042019-03-25 [place] kill d 05-09 09:30:00 [place] deficit: pt 09:05: [id number] 00 Musculoskel transfer Musculoske Resolve 2018-042019-03-18 [place] etal assistance letal d 05-09 11:38:00 [place] required 09:05: [id number] 00 Cath/Ostomy k/s Cath\Ostom Active 2018-04 [place] /GI deficit: y\GI Care 05-09 [place] cath/ost/GI 09:05: [id number] care - pt 00 Nutrition nutritional Nutrition Active 2018-04 [place] restriction 2-03 [place] s 13:30: t 00 [id number] Safety knowledge/s Safety Active 2018-04 Fabby kill 2-03 [place] deficit: pt 13:30: t 00 [id number] Safety risk for Safety Resolve 2018-042019-03-25 Susy herman d - 09:30:00 [place] tion 09:30: RN 00 Safety risk for Safety Active 2018-04 Fabby herman 2- [place] tion 13:00: t 00 [id number] Allergies, Adverse Reactions, Alerts Allergy Allergy Status [...] Unknown e 15 mg e 15 mg - Reji ALVAREZ tablet tablet FeroSul 325 FeroSul [...] 2018-04 Yes Breiman Unknown Unknown tablet tablet 20 Reji ALVAREZ chlorhexidi chlorhexidi 2018-04- Breiman Unknown Unknown ne ne 05-09 Reji ALVAREZ gluconate gluconate 0.12 % 0.12 % mouthwash mouthwash fluconazole fluconazole 2018-04 2019- Yes [place] Unknown Unknown 200 mg 200 mg 05-09 ,Reji tablet tablet Vital Signs Vital Name [...]
--- OUTSIDE RECORDS SUMMARY | 2019-04-20 12:15 | XMS REPORT ---
:1945 Author Organization [facility] Care Team Providers Name Role Phone Unavailable Unavailable Unavailable Problems Condition Condition Condition Status Onset Resolution Last Treating Comments Name Details Category Date Date Treatment Clinician Date Pain frequent Pain Mgmt Resolve 2018-042019-03-18 [place] pain d 05-09 11:38:00 [place] 09:05: [id number] 00 Integument surgical Integument Active 2018-04 [place] wound 05-09 [place] present 09:05: [id number] 00 Integument knowledge/s Integument Active 2018-04 [place] kill 05-09 [place] deficit: pt 09:05: [id number] 00 Nutrition knowledge/s Nutrition Active 2018-04 [place] kill 05-09 [place] deficit: pt 09:05: [id number] 00 Nutrition nutritional Nutrition Resolve 2018-042019-03-18 [place] restriction d 05-09 11:38:00 [place] s 09:05: [id number] 00 Elimination ostomy Eliminatio Active 2018-04 [place] present n 05-09 [place] 09:05: [id number] 00 Neuro confusion Neuro/Emot Active 2018-04 [place] present ion 05-09 [place] 09:05: [id number] 00 Neuro anxiety Neuro/Emot Active 2018-04 [place] present ion 05-09 [place] 09:05: [id number] 00 Neuro depressive Neuro/Emot Active 2018-04 [place] feelings ion 05-09 [place] present 09:05: [id number] 00 Activity ADL Activity Resolve 2018-042019-03-25 [place] assistance d 05-09 09:30:00 [place] required 09:05: [id number] 00 Activity self-care Activity Resolve 2018-042019-03-14 [place] deficit d 05-09 11:27:00 [place] 09:05: [id number] 00 Safety knowledge/s Safety Resolve 2018-042019-03-18 [place] kill d 05-09 11:38:00 [place] deficit: pt 09:05: [id number] 00 Safety fall risk Safety Resolve 2018-042019-03-18 [place] factor d 05-09 11:38:00 [place] present 09:05: [id number] 00 Safety risk for Safety Resolve 2018-042019-03-18 [place] hospitaliza d 05-09 11:38:00 [place] tion 09:05: [id number] 00 Medication oral med Meds Resolve 2018-042019-03-25 [place] assistance d 05-09 09:30:00 [place] required 09:05: [id number] 00 Medication knowledge/s Meds Resolve 2018-042019-03-25 [place] kill d 05-09 09:30:00 [place] deficit: pt 09:05: [id number] 00 Musculoskel transfer Musculoske Resolve 2018-042019-03-18 [place] etal assistance letal d 05-09 11:38:00 [place] required 09:05: [id number] 00 Cath/Ostomy k/s Cath\Ostom Active 2018-04 [place] /GI deficit: y\GI Care 05-09 [place] cath/ost/GI 09:05: [id number] care - pt 00 Nutrition nutritional Nutrition Active 2018-04 [place] restriction 2-03 [place] s 13:30: t 00 [id number] Safety knowledge/s Safety Active 2018-04 [place] kill -03 [place] deficit: pt 13:30: t 00 [id number] Safety risk for Safety Resolve 2018-042019-03-25 Susy [...] Unknown mg (65 mg mg (65 mg - Reji ALVAREZ iron) iron) tablet tablet levothyroxi [...]
--- OUTSIDE RECORDS SUMMARY | 2019-04-20 12:15 | XMS REPORT ---
:1945 Author Organization [facility] Care Team Providers Name Role Phone Unavailable Unavailable Unavailable Problems Condition Condition Condition Status Onset Resolution Last Treating Comments Name Details Category Date Date Treatment Clinician Date Pain frequent Pain Mgmt Resolve 2018-042019-03-18 Lakesha pain d 05-09 11:38:00 [place] 09:05: [id number] 00 Integument surgical Integument Active 2018-04 [place]ha wound 05-09 [place] present 09:05: [id number] 00 Integument knowledge/s Integument Active 2018-04 [place]ha kill 05-09 [place] deficit: pt 09:05: [id number] 00 Nutrition knowledge/s Nutrition Active 2018-04 [place]ha kill 05-09 [place] deficit: pt 09:05: [id number] 00 Nutrition nutritional Nutrition Resolve 2018-042019-03-18 [place]ha restriction d 05-09 11:38:00 [place] s 09:05: [id number] 00 Elimination ostomy Eliminatio Active 2018-04 Lakesha present n 05-09 [place] 09:05: [id number] 00 Neuro confusion Neuro/Emot Active 2018-04 Lakesha present ion 05-09 [place] 09:05: [id number] 00 Neuro anxiety Neuro/Emot Active 2018-04 Lakesha present ion 05-09 [place] 09:05: [id number] 00 Neuro depressive Neuro/Emot Active 2018-04 Lakesha feelings ion 05-09 [place] present 09:05: [id number] 00 Activity ADL Activity Resolve 2018-042019-03-25 Lakesha assistance d 05-09 09:30:00 [place] required 09:05: [id number] 00 Activity self-care Activity Resolve 2018-042019-03-14 [place]ha deficit d 05-09 11:27:00 [place] 09:05: [id number] 00 Safety knowledge/s Safety Resolve 2018-042019-03-18 [place]ha kill d 05-09 11:38:00 [place] deficit: pt 09:05: [id number] 00 Safety fall risk Safety Resolve 2018-042019-03-18 Lakesha factor d 05-09 11:38:00 [place] present 09:05: [id number] 00 Safety risk for Safety Resolve 2018-042019-03-18 Lakesha hospitaliza d 05-09 11:38:00 [place] tion 09:05: [id number] 00 Medication oral med Meds Resolve 2018-042019-03-25 [place]ha assistance d 05-09 09:30:00 [place] required 09:05: [id number] 00 Medication knowledge/s Meds Resolve 2018-042019-03-25 [place]ha kill d 05-09 09:30:00 [place] deficit: pt 09:05: [id number] 00 Musculoskel transfer Musculoske Resolve 2018-042019-03-18 Lakesha etal assistance letal d 05-09 11:38:00 [place] required 09:05: [id number] 00 Cath/Ostomy k/s Cath\Ostom Active 2018-04 Lakesha /GI deficit: y\GI Care 05-09 [place] cath/ost/GI 09:05: [id number] care - pt 00 Nutrition nutritional Nutrition Active 2018-04 Fabby restriction 2- [place] s 13:30: t 00 [id number] Safety knowledge/s Safety Active 2018-04 Fabby kill - [place] deficit: pt 13:30: t 00 [id number] Safety risk for Safety Resolve 2018-042019-03-25 Susy hospitaliza d 05-26 09:30:00 [place] tion 09:30: RN 00 Safety risk for Safety Active 2018-04 Fabby hospitaliza 2- [place] tion 13:00: t 00 [id number] Allergies, Adverse Reactions, Alerts Allergy Allergy Status [...]
--- OUTSIDE RECORDS SUMMARY | 2019-04-20 12:15 | XMS REPORT ---
:1945 Author Organization [facility] Care Team Providers Name Role Phone Unavailable [...] Lakesha pain d 05-09 11:38:00 Marge 09:05: [id number] 00 Integument surgical Integument Active 2018-04 [place]ha wound 05-09 [place] present 09:05: [id number] 00 Integument knowledge/s Integument Active 2018-04 [place] kill 05-09 [place] deficit: pt 09:05: [id number] 00 Nutrition knowledge/s Nutrition Active 2018-04 [place] kill 05-09 [place] deficit: pt 09:05: [id number] 00 Nutrition nutritional Nutrition Resolve 2018-042019-03-18 [place] restriction d 05-09 11:38:00 Marge s 09:05: [id number] 00 Elimination ostomy Eliminatio Active 2018-04 [place]ha present n 05-09 [place] 09:05: [id number] 00 Neuro confusion Neuro/Emot Active 2018-04 [place]ha present ion 05-09 [place] 09:05: [id number] 00 Neuro anxiety Neuro/Emot Active 2018-04 [place]ha present ion 05-09 [place] 09:05: [id number] 00 Neuro depressive Neuro/Emot Active 2018-04 [place]ha feelings ion 05-09 [place] present 09:05: [id number] 00 Activity ADL Activity Resolve 2018-042019-03-25 [place]ha assistance d 05-09 09:30:00 [place] required 09:05: [id number] 00 Activity self-care Activity Resolve 2018-042019-03-14 [place] deficit d 05-09 11:27:00 [place] 09:05: [id number] 00 Safety knowledge/s Safety Resolve 2018-042019-03-18 [place]ha kill d 05-09 11:38:00 [place] deficit: pt 09:05: [id number] 00 Safety fall risk Safety Resolve 2018-042019-03-18 [place]ha factor d 05-09 11:38:00 [place] present 09:05: [id number] 00 Safety risk for Safety Resolve 2018-042019-03-18 [place]ha hospitaliza d 05-09 11:38:00 [place] tion 09:05: [id number] 00 Medication oral med Meds Resolve 2018-042019-03-25 [place]ha assistance d 05-09 09:30:00 [place] required 09:05: [id number] 00 Medication knowledge/s Meds Resolve 2018-042019-03-25 [place]ha kill d 05-09 09:30:00 [place] deficit: pt 09:05: [id number] 00 Musculoskel transfer Musculoske Resolve 2018-042019-03-18 [place]ha etal assistance letal d 05-09 11:38:00 [place] required 09:05: [id number] 00 Cath/Ostomy k/s Cath\Ostom Active 2018-04 [place] /GI deficit: y\GI Care 05-09 [place] cath/ost/GI 09:05: [id number] care - pt 00 Nutrition nutritional Nutrition Active 2018-04 Fabby restriction 2-03 [place] s 13:30: t 00 [id number] Safety knowledge/s Safety Active 2018-04 Fabby kill 2-03 [place] deficit: pt 13:30: t 00 [id number] Safety risk for Safety Resolve 2018-042019-03-25 Susy herman d - 09:30:00 [place] tion 09:30: RN 00 Safety risk for Safety Active 2018-04 Fabby herman 2- [place] tion 13:00: t 00 [id number] Allergies, Adverse Reactions, Alerts Allergy Allergy Status [...] Yes [place] Unknown Unknown magnesium magnesium 05-09 Rjei ALVAREZ 20 mg 20 mg tablet,snehal tablet,snehal [...]
--- OUTSIDE RECORDS SUMMARY | 2019-04-20 12:15 | XMS REPORT ---
:1945 Author Organization [facility] Care Team Providers Name Role Phone Unavailable Unavailable Unavailable Problems Condition Condition Condition Status Onset Resolution Last Treating Comments Name Details Category Date Date Treatment Clinician Date Pain frequent Pain Mgmt Resolve 2018-042019-03-18 Lakesha pain d 05-09 11:38:00 Marge 09:05: [id number] 00 Integument surgical Integument Active 2018-04 Lakesha wound 05-09 [place] present 09:05: [id number] 00 Integument knowledge/s Integument Active 2018-04 [place]ha kill 05-09 [place] deficit: pt 09:05: [id number] 00 Nutrition knowledge/s Nutrition Active 2018-04 [place]ha kill 05-09 [place] deficit: pt 09:05: [id number] 00 Nutrition nutritional Nutrition Resolve 2018-042019-03-18 [place]ha restriction d 05-09 11:38:00 [place] s 09:05: [id number] 00 Elimination ostomy Eliminatio Active 2018-04 [place]ha present n 05-09 [place] 09:05: [id number] 00 Neuro confusion Neuro/Emot Active 2018-04 Lakesha present ion 05-09 [place] 09:05: [id number] 00 Neuro anxiety Neuro/Emot Active 2018-04 Lakesha present ion 05-09 [place] 09:05: [id number] 00 Neuro depressive Neuro/Emot Active 2018-04 [place]ha feelings ion 05-09 [place] present 09:05: [id number] 00 Activity ADL Activity Resolve 2018-042019-03-25 [place]ha assistance d 05-09 09:30:00 [place] required 09:05: [id number] 00 Activity self-care Activity Resolve 2018-042019-03-14 [place]ha deficit d 05-09 11:27:00 [place] 09:05: [id number] 00 Safety knowledge/s Safety Resolve 2018-042019-03-18 [place]ha kill d 05-09 11:38:00 [place] deficit: pt 09:05: [id number] 00 Safety fall risk Safety Resolve 2018-042019-03-18 [place]ha factor d 05-09 11:38:00 [place] present 09:05: [id number] 00 Safety risk for Safety Resolve 2018-042019-03-18 Lakesha hospitaliza d 05-09 11:38:00 [place] tion 09:05: [id number] 00 Medication oral med Meds Resolve 2018-042019-03-25 [place]ha assistance d 05-09 09:30:00 [place] required 09:05: [id number] 00 Medication knowledge/s Meds Resolve 2018-042019-03-25 [place]ha kill d 05-09 09:30:00 [place] deficit: pt 09:05: [id number] 00 Musculoskel transfer Musculoske Resolve 2018-042019-03-18 [place]ha etal assistance letal d 05-09 11:38:00 [place] required 09:05: [id number] 00 Cath/Ostomy k/s Cath\Ostom Active 2018-04 [place]ha /GI deficit: y\GI Care 05-09 [place] cath/ost/GI 09:05: [id number] care - pt 00 Nutrition nutritional Nutrition Active 2018-04 Fabby restriction 2-03 [place] s 13:30: t 00 [id number] Safety knowledge/s Safety Active 2018-04 Fabby kill -03 [place] deficit: pt 13:30: t 00 [id number] Safety risk for Safety Resolve 2018-042019-03-25 Susy [...] Unknown 200 mg 200 mg 05-09 Reji LAVAREZ tablet tablet Vital Signs Vital Name Observation [...]
--- OUTSIDE RECORDS SUMMARY | 2019-04-20 12:15 | XMS REPORT ---
:1945 Author Organization [facility] Care Team Providers Name Role Phone Unavailable [...] Resolve 2018-042019-03-18 Lakesha pain d 05-09 11:38:00 [place] 09:05: [id number] 00 Integument surgical Integument Active 2018-04 [place] wound 05-09 [place] present 09:05: [id number] 00 Integument knowledge/s Integument Active 2018-04 [place]ha kill 05-09 [place] deficit: pt 09:05: [id number] 00 Nutrition knowledge/s Nutrition Resolve 2018-042019-04-01 [place]ha kill d 05-09 09:33:00 Marge deficit: pt 09:05: [id number] 00 Nutrition nutritional Nutrition Resolve 2018-042019-03-18 [place] restriction d 05-09 11:38:00 Marge s 09:05: [id number] 00 Elimination ostomy Eliminatio Resolve 2018-042019-04-01 [place]ha present n d 05-09 09:33:00 Marge 09:05: [id number] 00 Neuro confusion Neuro/Emot Resolve 2018-042019-04-01 [place] present ion d 05-09 09:33:00 Marge 09:05: [id number] 00 Neuro anxiety Neuro/Emot Resolve 2018-042019-04-01 [place]ha present ion d 05-09 09:33:00 [place] 09:05: [id number] 00 Neuro depressive Neuro/Emot Resolve 2018-042019-04-01 [place]ha feelings ion d 05-09 09:33:00 [place] present 09:05: [id number] 00 Activity ADL Activity Resolve 2018-042019-03-25 [place]ha assistance d 05-09 09:30:00 [place] required 09:05: [id number] 00 Activity self-care Activity Resolve 2018-042019-03-14 [place] deficit d 05-09 11:27:00 [place] 09:05: [id number] 00 Safety knowledge/s Safety Resolve 2018-042019-03-18 [place] kill d 05-09 11:38:00 [place] deficit: pt 09:05: [id number] 00 Safety fall risk Safety Resolve 2018-042019-03-18 [place]ha factor d 05-09 11:38:00 [place] present 09:05: [id number] 00 Safety risk for Safety Resolve 2018-042019-03-18 Lakesha hospitaliza d 05-09 11:38:00 [place] tion 09:05: [id number] 00 Medication oral med Meds Resolve 2018-042019-03-25 [place]ha assistance d 05-09 09:30:00 [place] required 09:05: [id number] 00 Medication knowledge/s Meds Resolve 2018-042019-03-25 [place]ha kill d 05-09 09:30:00 [place] deficit: pt 09:05: [id number] 00 Musculoskel transfer Musculoske Resolve 2018-042019-03-18 [place]ha etal assistance letal d 05-09 11:38:00 [place] required 09:05: [id number] 00 Cath/Ostomy k/s Cath\Ostom Active 2018-04 [place] /GI deficit: y\GI Care 05-09 [place] cath/ost/GI 09:05: [id number] care - pt 00 Nutrition nutritional Nutrition Resolve 2018-042019-04-01 [place] restriction d 2- 09:33:00 [place] s 13:30: t 00 [id number] Safety knowledge/s Safety Resolve 2018-042019-04-01 [place] kill d 2- 09:33:00 [place] deficit: pt 13:30: t 00 [id number] Safety risk for Safety Resolve 2018-042019-03-25 Susy hospitaliza d 2- 09:30:00 [place] tion 09:30: RN 00 Safety risk for Safety Resolve 2018-042019-04-01 Fabby gaviriaa d 2- 09:33:00 [place] tion 13:00: t 00 [id number] Nutrition knowledge/s Nutrition Active 2018-04 Fabby kill 2- [place] deficit: pt 13:30: t 00 [id number] Nutrition nutritional Nutrition Active 2018-04 Fabby saleem 2-17 [place] s 13:30: t 00 [id number] Safety risk for Safety Active 2018-04 Fabby gaviriaa 2-17 [place] tion 13:30: t 00 [id number] Allergies, Adverse Reactions, Alerts Allergy Allergy Status [...] Observation Time Observation Value Comments SYSTOLIC mm[Hg] 2019-04-11 18:09:30 110 mm[Hg] mm[Hg] Method: Sit SYSTOLIC mm[Hg] 2019-03-09 18:08:57 128 mm[Hg] mm[Hg] Method: Stand DIASTOLIC mm[Hg] 2019-04-11 18:09:30 70 mm[Hg] mm[Hg] Method: Sit DIASTOLIC mm[Hg] 2019-03-09 18:08:57 74 mm[Hg] mm[Hg] Method: Stand PULSE 2019-04-11 18:09:30 87 /min /min RESP RATE 2019-04-11 18:09:30 16 /min /min TEMP 2019-04-11 18:09:30 98.5 [degF] Procedures This patient has no known procedures. Results This patient has no known results.
--- OUTSIDE RECORDS SUMMARY | 2019-04-20 12:15 | XMS REPORT ---
:1945 Author Organization [facility] Care Team Providers Name Role Phone Unavailable [...] Lakesha pain d 05-09 11:38:00 [place] 09:05: [id number] 00 Integument surgical Integument Active 2018-04 [place] wound 05-09 [place] present 09:05: [id number] 00 Integument knowledge/s Integument Active 2018-04 [place] kill 05-09 [place] deficit: pt 09:05: [id number] 00 Nutrition knowledge/s Nutrition Active 2018-04 [place] kill 05-09 [place] deficit: pt 09:05: [id number] 00 Nutrition nutritional Nutrition Resolve 2018-042019-03-18 [place] restriction d 05-09 11:38:00 Marge s 09:05: [id number] 00 Elimination ostomy Eliminatio Active 2018-04 [place] present n 05-09 [place] 09:05: [id number] 00 Neuro confusion Neuro/Emot Active 2018-04 [place] present ion 05-09 [place] 09:05: [id number] 00 Neuro anxiety Neuro/Emot Active 2018-04 [place] present ion 05-09 [place] 09:05: [id number] 00 Neuro depressive Neuro/Emot Active 2018-04 [place] feelings ion 05-09 [place] present 09:05: [id number] 00 Activity ADL Activity Resolve 2018-042019-03-25 [place] assistance d 05-09 09:30:00 [place] required 09:05: [id number] 00 Activity self-care Activity Resolve 2018-042019-03-14 [place] deficit d 05-09 11:27:00 [place] 09:05: [id number] 00 Safety knowledge/s Safety Resolve 2018-042019-03-18 [place] kill d 05-09 11:38:00 [place] deficit: pt 09:05: [id number] 00 Safety fall risk Safety Resolve 2018-042019-03-18 [place]ha factor d 05-09 11:38:00 [place] present 09:05: [id number] 00 Safety risk for Safety Resolve 2018-042019-03-18 [place]ha hospitaliza d 05-09 11:38:00 [place] tion 09:05: [id number] 00 Medication oral med Meds Resolve 2018-042019-03-25 [place]ha assistance d 05-09 09:30:00 [place] required 09:05: [id number] 00 Medication knowledge/s Meds Resolve 2018-042019-03-25 [place] kill d 05-09 09:30:00 [place] deficit: pt 09:05: [id number] 00 Musculoskel transfer Musculoske Resolve 2018-042019-03-18 [place] etal assistance letal d 05-09 11:38:00 [place] required 09:05: [id number] 00 Cath/Ostomy k/s Cath\Ostom Active 2018-04 [place] /GI deficit: y\GI Care 05-09 [place] cath/ost/GI 09:05: [id number] care - pt 00 Nutrition nutritional Nutrition Active 2018-04 [place] restriction 2-03 [place] s 13:30: t 00 [id number] Safety knowledge/s Safety Active 2018-04 [place] kill 2-03 [place] deficit: pt 13:30: t 00 [id number] Safety risk for Safety Resolve 2018-042019-03-25 Susy herman d - 09:30:00 [place] tion 09:30: RN 00 Safety risk for Safety Active 2018-04 Fabby herman 2- [place] tion 13:00: t 00 [id number] Allergies, Adverse Reactions, Alerts Allergy Allergy Status [...]
--- OUTSIDE RECORDS SUMMARY | 2019-04-20 12:15 | XMS REPORT ---
:1945 Author Organization [facility] Care Team Providers Name Role Phone Unavailable Unavailable Unavailable Problems Condition Condition Condition Status Onset Resolution Last Treating Comments Name Details Category Date Date Treatment Clinician Date Pain frequent Pain Mgmt Resolve 2018-042019-03-18 [place]ha pain d 05-09 11:38:00 Mar[place] 09:05: [id number] 00 Integument surgical Integument Active 2018-04 [place] wound 05-09 [place] present 09:05: [id number] 00 Integument knowledge/s Integument Active 2018-04 [place]ha kill 05-09 [place] deficit: pt 09:05: [id number] 00 Nutrition knowledge/s Nutrition Active 2018-04 [place]ha kill 05-09 [place] deficit: pt 09:05: [id number] 00 Nutrition nutritional Nutrition Resolve 2018-042019-03-18 [place] restriction d 05-09 11:38:00 Marge s 09:05: [id number] 00 Elimination ostomy Eliminatio Active 2018-04 [place]ha present n 05-09 [place] 09:05: [id number] 00 Neuro confusion Neuro/Emot Active 2018-04 [place]ha present ion 05-09 [place] 09:05: [id number] 00 Neuro anxiety Neuro/Emot Active 2018-04 [place] present ion 05-09 [place] 09:05: [id number] 00 Neuro depressive Neuro/Emot Active 2018-04 [place]ha feelings ion 05-09 [place] present 09:05: [id number] 00 Activity ADL Activity Active 2018-04 [place] assistance 05-09 [place] required 09:05: [id number] 00 Activity self-care Activity Resolve 2018-042019-03-14 [place] deficit d 05-09 11:27:00 [place] 09:05: [id number] 00 Safety knowledge/s Safety Resolve 2018-042019-03-18 [place] kill d 05-09 11:38:00 [place] deficit: pt 09:05: [id number] 00 Safety fall risk Safety Resolve 2018-042019-03-18 [place]ha factor d 05-09 11:38:00 [place] present 09:05: [id number] 00 Safety risk for Safety Resolve 2018-042019-03-18 [place]ha hospitaliza d 05-09 11:38:00 [place] tion 09:05: [id number] 00 Medication oral med Meds Active 2018-04 [place] assistance 05-09 [place] required 09:05: [id number] 00 Medication knowledge/s Meds Active 2018-04 [place]ha kill 05-09 [place] deficit: pt 09:05: [id number] 00 Musculoskel transfer Musculoske Resolve 2018-042019-03-18 [facility] etal assistance letal d 05-09 11:38:00 [place] required 09:05: [id number] 00 Cath/Ostomy k/s Cath\Ostom Active 2018-04 [place]ha /GI deficit: y\GI Care 05-09 [place] cath/ost/GI 09:05: [id number] care - pt 00 Allergies, Adverse Reactions, [...]
--- OUTSIDE RECORDS SUMMARY | 2019-04-20 12:15 | XMS REPORT ---
:1945 Author Organization [facility] [place] Care Team Providers Name Role Phone Unavailable [...] Lakesha pain d 05-09 11:38:00 [place] 09:05: [id number] 00 Integument surgical Integument Active 2018-04 [place] wound 05-09 [place] present 09:05: [id number] 00 Integument knowledge/s Integument Active 2018-04 [place] kill 05-09 [place] deficit: pt 09:05: [id number] 00 Nutrition knowledge/s Nutrition Resolve 2018-042019-04-01 [place] kill d 05-09 09:33:00 [place] deficit: pt 09:05: [id number] 00 Nutrition nutritional Nutrition Resolve 2018-042019-03-18 [place] restriction d 05-09 11:38:00 Marge s 09:05: [id number] 00 Elimination ostomy Eliminatio Resolve 2018-042019-04-01 [place] present n d 05-09 09:33:00 [place] 09:05: [id number] 00 Neuro confusion Neuro/Emot Resolve 2018-042019-04-01 [place] present ion d 05-09 09:33:00 [place] 09:05: [id number] 00 Neuro anxiety Neuro/Emot Resolve 2018-042019-04-01 [place] present ion d 05-09 09:33:00 [place] 09:05: [id number] 00 Neuro depressive Neuro/Emot Resolve 2018-042019-04-01 [place] feelings ion d 05-09 09:33:00 [place] present 09:05: [id number] 00 Activity ADL Activity Resolve 2018-042019-03-25 [place] assistance d 05-09 09:30:00 [place] required 09:05: [id number] 00 Activity self-care Activity Resolve 2018-042019-03-14 [place] deficit d 05-09 11:27:00 [place] 09:05: [id number] 00 Safety knowledge/s Safety Resolve 2018-042019-03-18 [place] kill d 05-09 11:38:00 [place] deficit: pt 09:05: [id number] 00 Safety fall risk Safety Resolve 2018-042019-03-18 [place] factor d 05-09 11:38:00 [place] present 09:05: [id number] 00 Safety risk for Safety Resolve 2018-042019-03-18 [place]ha hospitaliza d 05-09 11:38:00 [place] tion 09:05: [id number] 00 Medication oral med Meds Resolve 2018-042019-03-25 [place] assistance d 05-09 09:30:00 [place] required 09:05: [id number] 00 Medication knowledge/s Meds Resolve 2018-042019-03-25 [place] kill d 05-09 09:30:00 [place] deficit: pt 09:05: [id number] 00 Musculoskel transfer Musculoske Resolve 2018-042019-03-18 [place] etal assistance letal d 05-09 11:38:00 [place] required 09:05: [id number] 00 Cath/Ostomy k/s Cath\Ostom Active 2018-04 [place] /GI deficit: y\GI Care 05-09 [place] cath/ost/GI 09:05: [id number] care - pt 00 Nutrition nutritional Nutrition Resolve 2018-042019-04-01 Fabyb restriction d 2- 09:33:00 [place] s 13:30: t 00 [id number] Safety knowledge/s Safety Resolve 2018-042019-04-01 Fabby kill d 2- 09:33:00 [place] deficit: pt 13:30: t 00 [id number] Safety risk for Safety Resolve 2018-042019-03-25 Susy hospitaliza d 2- 09:30:00 [place] tion 09:30: RN 00 Safety risk for Safety Resolve 2018-042019-04-01 [place] gaviriaa d 2- 09:33:00 [place] tion 13:00: t 00 [id number] Nutrition knowledge/s Nutrition Active 2018-04 [place] kill 2- [place] deficit: pt 13:30: t 00 [id number] Nutrition nutritional Nutrition Active 2018-04 Fabby saleem 2-17 [place] s 13:30: t 00 [id number] Safety risk for Safety Active 2018-04 Fabby gaviriaa 2-17 [place] tion 13:30: t 00 [id number] Allergies, Adverse Reactions, Alerts Allergy Allergy Status [...] 74 mm[Hg] mm[Hg] Method: Stand RESP RATE 2019-04-01 18:09:20 16 /min /min Procedures This patient has no known procedures. Results This patient has no known results.
--- OUTSIDE RECORDS SUMMARY | 2019-04-20 12:15 | XMS REPORT ---
:1945 Author Organization [facility] Care Team Providers Name Role Phone Unavailable [...] Lakesha pain d 05-09 11:38:00 [place] 09:05: [id number] 00 Integument surgical Integument Active 2018-04 [place] wound 05-09 [place] present 09:05: [id number] 00 Integument knowledge/s Integument Active 2018-04 [place] kill 05-09 [place] deficit: pt 09:05: [id number] 00 Nutrition knowledge/s Nutrition Resolve 2018-042019-04-01 [place] kill d 05-09 09:33:00 [place] deficit: pt 09:05: [id number] 00 Nutrition nutritional Nutrition Resolve 2018-042019-03-18 [place] restriction d 05-09 11:38:00 [place]ge s 09:05: [id number] 00 Elimination ostomy Eliminatio Resolve 2018-042019-04-01 [place] present n d 05-09 09:33:00 [place] 09:05: [id number] 00 Neuro confusion Neuro/Emot Resolve 2018-042019-04-01 [place] present ion d 05-09 09:33:00 [place] 09:05: [id number] 00 Neuro anxiety Neuro/Emot Resolve 2018-042019-04-01 [place] present ion d 05-09 09:33:00 [place] 09:05: [id number] 00 Neuro depressive Neuro/Emot Resolve 2018-042019-04-01 [place] feelings ion d 05-09 09:33:00 [place] present 09:05: [id number] 00 Activity ADL Activity Resolve 2018-042019-03-25 [place] assistance d 05-09 09:30:00 [place] required 09:05: [id number] 00 Activity self-care Activity Resolve 2018-042019-03-14 [place] deficit d 05-09 11:27:00 [place] 09:05: [id number] 00 Safety knowledge/s Safety Resolve 2018-042019-03-18 [place] kill d 05-09 11:38:00 [place] deficit: pt 09:05: [id number] 00 Safety fall risk Safety Resolve 2018-042019-03-18 [place] factor d 05-09 11:38:00 [place] present 09:05: [id number] 00 Safety risk for Safety Resolve 2018-042019-03-18 [place] hospitaliza d 05-09 11:38:00 [place] tion 09:05: [id number] 00 Medication oral med Meds Resolve 2018-042019-03-25 [place] assistance d 05-09 09:30:00 [place] required 09:05: [id number] 00 Medication knowledge/s Meds Resolve 2018-042019-03-25 [place] kill d 05-09 09:30:00 [place] deficit: pt 09:05: [id number] 00 Musculoskel transfer Musculoske Resolve 2018-042019-03-18 [place] etal assistance letal d 05-09 11:38:00 [place] required 09:05: [id number] 00 Cath/Ostomy k/s Cath\Ostom Active 2018-04 [place] /GI deficit: y\GI Care 05-09 [place] cath/ost/GI 09:05: [id number] care - pt 00 Nutrition nutritional Nutrition Resolve 2018-042019-04-01 [place] restriction d 2- 09:33:00 [place] s 13:30: t 00 [id number] Safety knowledge/s Safety Resolve 2018-042019-04-01 [place] kill d 2- 09:33:00 [place] deficit: pt 13:30: t 00 [id number] Safety risk for Safety Resolve 2018-042019-03-25 Susy hospitaliza d 2- 09:30:00 [place] tion 09:30: RN 00 Safety risk for Safety Resolve 2018-042019-04-01 [place]by gaviriaa d 2- 09:33:00 [place] tion 13:00: t 00 [id number] Nutrition knowledge/s Nutrition Active 2018-04 [place] kill 2- [place] deficit: pt 13:30: t 00 [id number] Nutrition nutritional Nutrition Active 2018-04 Fab[place] saleem 2-17 [place] s 13:30: t 00 [id number] Safety risk for Safety Active 2018-04 [place] gaviriaa 2-17 [place] tion 13:30: t 00 [id number] Allergies, Adverse Reactions, Alerts Allergy Allergy Status [...]
--- OUTSIDE RECORDS SUMMARY | 2019-04-20 12:15 | XMS REPORT ---
:1945 Author Organization [facility] Care Team Providers Name Role Phone Unavailable Unavailable Unavailable Problems Condition Condition Condition Status Onset Resolution Last Treating Comments Name Details Category Date Date Treatment Clinician Date Pain frequent Pain Mgmt Resolve 2018-042019-03-18 [place] pain d 05-09 11:38:00 [place] 09:05: [id number] 00 Integument surgical Integument Active 2018-04 [place] wound 05-09 [place] present 09:05: [id number] 00 Integument knowledge/s Integument Active 2018-04 [place] kill 05-09 [place] deficit: pt 09:05: [id number] 00 Nutrition knowledge/s Nutrition Active 2018-04 [place] kill 05-09 [place] deficit: pt 09:05: [id number] 00 Nutrition nutritional Nutrition Resolve 2018-042019-03-18 [place] restriction d 05-09 11:38:00 [place] s 09:05: [id number] 00 Elimination ostomy Eliminatio Active 2018-04 [place] present n 05-09 [place] 09:05: [id number] 00 Neuro confusion Neuro/Emot Active 2018-04 [place] present ion 05-09 [place] 09:05: [id number] 00 Neuro anxiety Neuro/Emot Active 2018-04 [place] present ion 05-09 [place] 09:05: [id number] 00 Neuro depressive Neuro/Emot Active 2018-04 [place] feelings ion 05-09 [place] present 09:05: [id number] 00 Activity ADL Activity Resolve 2018-042019-03-25 [place] assistance d 05-09 09:30:00 [place] required 09:05: [id number] 00 Activity self-care Activity Resolve 2018-042019-03-14 [place] deficit d 05-09 11:27:00 [place] 09:05: [id number] 00 Safety knowledge/s Safety Resolve 2018-042019-03-18 [place] kill d 05-09 11:38:00 [place] deficit: pt 09:05: [id number] 00 Safety fall risk Safety Resolve 2018-042019-03-18 [place] factor d 05-09 11:38:00 [place] present 09:05: [id number] 00 Safety risk for Safety Resolve 2018-042019-03-18 [place] hospitaliza d 05-09 11:38:00 [place] tion 09:05: [id number] 00 Medication oral med Meds Resolve 2018-042019-03-25 [place] assistance d 05-09 09:30:00 [place] required 09:05: [id number] 00 Medication knowledge/s Meds Resolve 2018-042019-03-25 [place] kill d 05-09 09:30:00 [place] deficit: pt 09:05: [id number] 00 Musculoskel transfer Musculoske Resolve 2018-042019-03-18 [place] etal assistance letal d 05-09 11:38:00 [place] required 09:05: [id number] 00 Cath/Ostomy k/s Cath\Ostom Active 2018-04 [place] /GI deficit: y\GI Care 05-09 [place] cath/ost/GI 09:05: [id number] care - pt 00 Nutrition nutritional Nutrition Active 2018-04 [place] restriction 2- [place] s 13:30: t 00 [id number] Safety knowledge/s Safety Active 2018-04 [place] kill - [place] deficit: pt 13:30: t 00 [id number] Safety risk for Safety Resolve 2018-042019-03-25 [place] hospitaliza d 05-26 09:30:00 [place] tion 09:30: RN 00 Safety risk for Safety Active 2018-04 [place] hospitaliza 2- [place] tion 13:00: t 00 [id number] Allergies, Adverse Reactions, Alerts Allergy Allergy Status [...]
[2019-04-20 12:28] LABS: ABS Lymphocytes 0.3 10^3/ul (1.0-4.8); ABS Neutrophils 10.5 10^3/ul (1.5-7.7); Eosinophil % 0.1 %; Hematocrit 27 % (35-47); Hemoglobin 8.9 g/dL (12.0-16.0); Lymphocyte % 2.9 %; Mean Corpuscular HGB Conc 33 g/dL (31-36); Mean Corpuscular Hemoglobin 30 pg (27-31); Mean Corpuscular Volume 89 fL (80-97); Mean Platelet Volume 6.6 fL (7.4-10.4); Platelet Count 210 10^3/uL (150-450); Red Cell Distribution Width 15 % (10-15); White Blood Count 11.9 10^3/uL (3.5-10.8)
[2019-04-20 12:44] LABS: Albumin 3.5 g/dL (3.2-5.2); BUN/Creatinine Ratio 19.9 (8-20); Calcium 8.8 mg/dL (8.6-10.3); EGFR Non-African American 16.5 (>60); Globulin 3.4 g/dL (2-4); Potassium 4.4 mmol/L (3.5-5.0); Total Bilirubin 0.5 mg/dL (0.2-1.0); Total Protein 6.9 g/dL (6.4-8.9)
[2019-04-20 14:51] LABS: Urine Appearance Clear; Urine Bilirubin Negative (Negative); Urine Blood 2+ (Negative); Urine Color Straw; Urine Glucose Negative (Negative); Urine Ketones Negative (Negative); Urine Nitrite Negative (Negative); Urine Protein 1+(30 mg/dL) (Negative); Urine Specific Gravity 1.004 (1.010-1.030); Urine Urobilinogen Negative (Negative)
[2019-04-20 14:52] LABS: Urine Bacteria 2+ (Absent); Urine Red Blood Cell 1+(3-5/hpf) (Absent); Urine White Blood Cell 3+(>20/hpf) (Absent)
[2019-04-20] MEDS ORDERED: cefTRIAXone(*) 1 GM in NS 0.9% 50 ML* 50 ML IVPB ONE (14:57)
[2019-04-20 16:13] VITALS: BP 137/71
== END 2019-04-20 16:13 | disposition home or self-care (01) ==
LOC: ED 11:31
DX: N39.0 Urinary tract infection, site not specified (principal); K59.00 Constipation, unspecified; E03.9 Hypothyroidism, unspecified; K21.9 Gastro-esophageal reflux disease without esophagitis; F41.9 Anxiety disorder, unspecified; F20.9 Schizophrenia, unspecified; Z93.6 Other artificial openings of urinary tract status; Z85.048 Personal history of other malignant neoplasm of rectum, rectosigmoid junction, and anus; Z85.89 Personal history of malignant neoplasm of other organs and systems
CPT/HCPCS: 36415; 74176; 80053; 81003; 81015; 85025; 87077; 87086; 87186; 96361; 96365; 96375; 99284; J0696; J2405

== ENCOUNTER 2021-03-13 15:29 | Inpatient (IN) ==
[2021-03-13 16:23] LABS: ABS Basophils 0.1 10^3/ul (0-0.2); ABS Eosinophils 0.2 10^3/ul (0-0.6); ABS Lymphocytes 0.9 10^3/ul (1.0-4.8); ABS Monocytes 0.5 10^3/ul (0-0.8); ABS Neutrophils 4.8 10^3/ul (1.5-7.7); Eosinophil % 2.5 %; Hematocrit 31 % (35-47); Hemoglobin 10.9 g/dL (12.0-16.0); Lymphocyte % 13.7 %; Mean Corpuscular HGB Conc 35 g/dL (31-36); Mean Corpuscular Hemoglobin 30 pg (27-31); Mean Corpuscular Volume 86 fL (80-97); Mean Platelet Volume 7.4 fL (7.4-10.4); Platelet Count 237 10^3/uL (150-450); Red Blood Count 3.65 10^6 /uL (3.70-4.87); Red Cell Distribution Width 14 % (10-15); White Blood Count 6.3 10^3/uL (3.5-10.8)
[2021-03-13 16:35] LABS: Albumin 3.9 g/dL (3.2-5.2); Albumin/Globulin Ratio 1.4 (1-3); C Reactive Protein 6.98 mg/L (<8.01); Calcium 9.3 mg/dL (8.6-10.3); Globulin 2.8 g/dL (2-4); Potassium 4.3 mmol/L (3.5-5.0); Total Bilirubin 0.4 mg/dL (0.2-1.0); Total Protein 6.7 g/dL (6.4-8.9); eGFR CKD-EPI 47.8 (>60)
[2021-03-13 17:28] LABS: Urine Appearance Cloudy; Urine Bilirubin Negative (Negative); Urine Blood 2+ (Negative); Urine Color Yellow; Urine Glucose Negative (Negative); Urine Ketones Negative (Negative); Urine Nitrite Negative (Negative); Urine Protein 1+(30 mg/dL) (Negative); Urine Specific Gravity 1.004 (1.002-1.030); Urine Urobilinogen Negative (Negative)
[2021-03-13 17:32] LABS: Urine Amorphous Crystals Present (Absent); Urine Bacteria 3+ (Absent); Urine Red Blood Cell 3+(>10/hpf) (Absent); Urine Squamous Epithelial Cell Present (Absent); Urine White Blood Cell 3+(>20/hpf) (Absent)
[2021-03-13] MEDS ORDERED: Iodixanol (CONTRAST) 320 MG/ML 100 ML SDV IV ONE (18:16)
[2021-03-13 19:01] LABS: Urine Appearance Turbid; Urine Bilirubin Negative (Negative); Urine Blood 3+ (Negative); Urine Color Yellow; Urine Glucose Negative (Negative); Urine Ketones Negative (Negative); Urine Nitrite Negative (Negative); Urine Protein 2+(100 mg/dL) (Negative); Urine Specific Gravity 1.004 (1.002-1.030); Urine Urobilinogen Negative (Negative)
[2021-03-13 19:18] LABS: Urine Amorphous Crystals Present (Absent); Urine Bacteria 2+ (Absent); Urine Red Blood Cell 2+(6-10/hpf) (Absent); Urine Squamous Epithelial Cell Present (Absent); Urine White Blood Cell 3+(>20/hpf) (Absent)
[2021-03-13] MEDS ORDERED: cefTRIAXone 1 gm/50 mL NS BAG 1 GM/50 ML BAG IV ONE (21:04)
[2021-03-13] MEDS ORDERED: Ondansetron 4 mg VIAL 2 MG/ML 2 ml VIAL IV PRN (22:11)
[2021-03-14 01:43] LABS: Rapid COVID-19 Molecular Undetected (Undetected)
[2021-03-14 02:03] LABS: TSH Ultra Thyroid Stim Horm 0.9 mcIU/mL (0.34-5.60)
[2021-03-14] MEDS: Heparin 5000 UNITS/ML 1 mL VIAL SUBCUT SCH ×3 (05:58→22:59)
[2021-03-14 07:21] LABS: ABS Basophils 0.1 10^3/ul (0-0.2); ABS Eosinophils 0.3 10^3/ul (0-0.6); ABS Lymphocytes 0.9 10^3/ul (1.0-4.8); ABS Monocytes 0.5 10^3/ul (0-0.8); ABS Neutrophils 3.9 10^3/ul (1.5-7.7); Eosinophil % 5.1 %; Hematocrit 34 % (35-47); Hemoglobin 11.3 g/dL (12.0-16.0); Lymphocyte % 15.5 %; Mean Corpuscular HGB Conc 34 g/dL (31-36); Mean Corpuscular Hemoglobin 29 pg (27-31); Mean Corpuscular Volume 87 fL (80-97); Mean Platelet Volume 7.4 fL (7.4-10.4); Platelet Count 240 10^3/uL (150-450); Red Cell Distribution Width 14 % (10-15); White Blood Count 5.6 10^3/uL (3.5-10.8)
[2021-03-14 07:40] LABS: Calcium 9.4 mg/dL (8.6-10.3); eGFR CKD-EPI 49.3 (>60)
[2021-03-14] MEDS ORDERED: cefTRIAXone 1 gm/50 mL NS BAG 1 GM/50 ML BAG IVPB SCH (21:00)
[2021-03-15 05:09] LABS: Hematocrit 35 % (35-47); Hemoglobin 11.6 g/dL (12.0-16.0); Mean Corpuscular HGB Conc 33 g/dL (31-36); Mean Corpuscular Hemoglobin 29 pg (27-31); Mean Corpuscular Volume 87 fL (80-97); Platelet Count 248 10^3/uL (150-450); Red Blood Count 3.99 10^6 /uL (3.70-4.87); Red Cell Distribution Width 14 % (10-15); White Blood Count 5.3 10^3/uL (3.5-10.8)
[2021-03-15 05:28] LABS: Calcium 9.5 mg/dL (8.6-10.3); Magnesium 1.9 mg/dL (1.9-2.7); Potassium 3.8 mmol/L (3.5-5.0); eGFR CKD-EPI 46.9 (>60)
[2021-03-15] MEDS: Heparin 5000 UNITS/ML 1 mL VIAL SUBCUT SCH ×2 (06:16→12:38)
[2021-03-15 14:47] VITALS: BP 127/71
== END 2021-03-15 16:45 | disposition home or self-care (01) | DRG 389 ==
LOC: ED 15:29 → MED 03-14 00:41 → SUATTDRO 03-14 00:41
PROVIDERS: ADMIT Internal Medicine; ATTEND Internal Medicine